=== PATIENT | female | born 1985 | race Caucasian/White ===

== ENCOUNTER 2024-12-06 17:49 | Emergency (ER) | payer BC, SELFPAY ==
[2024-12-06 17:52] VITALS: BP 103/69; PULSE 106; RESP 18; TEMP 37.2; O2SAT 98; BMI 21.6
--- OUTSIDE RECORDS SUMMARY | 2024-12-06 17:52 | XMS_ITS | Continuity of Care Document ---
Author Organization [facility] Address [address] [place] [address] Phone Care Team Providers Care Dinkey Brakeman Name Role Phone Derik RUGGIERO, Pati Unavailable Unavailab le Allergies, Adverse Reactions, Alerts Substance Reaction Status Criticality SULFATHIAZOLE SODIUM Active No Info rmation penicillin V Active No Information amoxicillin Active No Information Medications Medication Instructions Dosage Effective Dates (start - stop) Status Comments triamcinolone acetonide 0.1 % Topical Cream apply by topical route 2 times every day a thin layer to the affected area(s) 0.00 - Active Lantus 100 unit/mL Sub-Q inject by subcutaneous route as per insulin protocol 0.00 - Active Humalog 100 unit/mL Sub-Q inject by subcutaneous route as per insulin sliding scale protocol - Active Procedures Procedure Date Offic/outpt E&m Estab Low-mod 3 Offic/outpt E&m Estab Low-mod 3 I&d Abscess; Simpl/sngl Surgical Trays Offic/outpt E&m New Mod Sever 3 Advance Directives Directive Yes / No Effective Date File Name Resuscitation Not Answered N/A N/A Life Support Not Answered N/A N/A Intubation Not Answered N/A N/A Antibiotics Not Answered N/A N/A IV Fluid Support Not Answered N/A N/A Tube Feed Not Answered N/A N/A Other Directive N/A N/A WARNING:The information contained in this section is historical and is provided for information only and does not constitute a legal document or any assurance that the information is still accurate. Please verify the information with the darnell of the legal document before using it for clinical purposes. Encounters Encounter Description Practice Location Reason(s) For Visit Diagnoses Date Provider Providers Copied on Encounter Offic/outpt E&m Estab [facility], [address], [place], [place], [id number], tel:[phone] [facility] CM wound recheck (chief complaint) Cellulitis Apr-2 3 Derik Krueger . [address] [place] [address], [id number] , [place]. tel:[phone] Referring Provider: Pati More NP, [address] [place] [address], [id number] . tel:[phone] Offic/outpt E&m [facility], [address], [place], [place], [id number], tel:[phone] [facility] CM follow up abscee (chief complaint) CellulitisSCREEN EXAM FOR VENEREAL DISEASE Feb- 3 Derik Krueger . [address] [place] [address], [id number] , [place]. tel:[phone] [facility], [address] [place] [address], [id number], tel:[phone] [facility] CM recheck leg (chief complaint)r saige (chief complaint) CellulitisDERMATI TIS,CONTACT & OTH ECZEMA Apr-0 3 Derik Krueger . [address] [place] [address], [id number] , [place]. tel:[phone] Referring Provider: Pati More NP, [address] [place] [address], [id number] . tel:[phone] Offic/outpt E&m [facility], [address], [place], [id number], tel:[phone] [facility] CM Cellulitis Apr-0 3 Derik Krueger . [address] [place] [address], [id number] , [place]. tel:[phone] Family History Family Member Type Diagnosis Age At Onset No Information Payers Payer name Insurance type Covered democrat ID Authoriza tion(s) [facility] [place] [id number] Social History Type Description Quantity Date Captured Comments Alcohol Use Details Unknown Caffeine Use Details Unknown Tobacco Use Status No Information Smoking Status Never smoker Sex Female Vital Signs Date / Time: Height Weight BMI Pulse Rate Blood Pressure Temperature Respiratory Rate Body Surface Area Head Circumference Head Circ. Percentile Wt./Donn. Percentile BMI percentile Pulse Ox Inhaled Ox 10:04 AM 66.00 in 146.00 lbs 23.5 6 kg/m eter (2) 80 /min 110/76 mm[Hg] 98.10 F 20 /min Chief Complaint And Reason For Visit From encounter dated '02/24/2013 10:00'. wound recheck (chief complaint) Reason For Referral Reason For Referral No Information History Of Present Illness Encounter Date Complaint History Of Prese nt Illness wound recheck Reports much imp roved. Took last dose of antibiotic yesterdayLabs negativeDenies purulent d/c, fever or chills follow up abscee Reports much im proved but never drained. Not tenderDenies purulent d/c, fever or chills recheck leg Abscess is impro ving. less tender. Taking doxycycline and using warm compressesDenies purulent d/c, fever or chills rash Noticed raised r saige on upper back area after starting the doxycycline. Not itchy and reports feels gritty.Denies new lotions, soaps, detergents or perfumes Functional Status Date Functional Assessmen t No Information Instructions Date Instruction Additional Infor mation No Information Assessments Type Assessment Date No Information Patient Care Teams Name Effective Dates (start - stop) Status Members No Information
--- NOTE | 2024-12-06 18:19 | ED_ITS ---
HPI - General Adult General Date Seen: 12/06/24 Chief complaint: Psychiatric Problem/Disorder Stated complaint: High blood sugar, mental health Time Seen by Provider: 12/06/24 18:13 History of Present Illness HPI narrative: 39-year-old female with a history of diabetes and alcohol use disorder (nurse's note indicates that she had been sober for 11 years until she began to drink in September 2024, 3 months ago. She apparently ended up in intensive care unit. H e her relationship 11 years and 2 weeks ago, because of her drinking. She does have a history of anxiety and is on Lexapro and trazodone for that. She also admits a history of alcoholism. It sounds like she has been alcoholic for years. She has been through treatment 4 times. Her most recent episode treatment was 10 or 11 years ago and ultimately that was the successful 1. It sounds like her success was driven by the fact that during that episode treatment it was her personal motivation that led to success (rather than going through treatment to place her family). She had been sober for 10 or 11 years. 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 She had a very supportive sponsor (who is actually in the [facility], she used to live in [place]) She and her boyfriend moved from here near [place] up to [place], [place] last fall (apparently for boyfriend's job). It sounds like she stopped attending and leading meetings well being up in [facility] and then relapsed. She had been drinking beginning in July, and more heavily over the winter. It sounds like her boyfriend ended their relationship week or 2 ago because he found her with alcohol. That was a violation of trust. It sounds like during that event she did think about suicide by overdosing on insulin but that was only a temporary thought a couple of weeks ago. The patient says that she is not actively suicidal today or lately. In addition to commenting about having the thought of wanted to overdose on insulin, she had also been taking risk behavior with driving her car too fast, but also not lately. She has been drinking also taking gummies fairly regularly for the past couple of weeks and not controlling her diabetes. She required hospitalization in the intensive care unit at [facility] in [place] last weekend. After discharge she came home from [facility] to be here in [place], where her parents live. Her father is concerned that he she might . She is still drinking and taking gummies. She reports taking the, he is ?off and on? since last Friday. She says she was drinking as of 930 this morning. She also has not been using her insulin pump properly. She says it was in place but not hooked up properly so was not given her insulin. She had some high blood sugars this morning so she took 10 units of Lantus and 4 units of short- acting insulin this afternoon. Blood sugar is running about 170 on her CGM since then. She says she came here to the ER because her father wanted her to come. She does not really know what she wants. Her father's wonders if there may be some other underlying diagnosis leading to her erratic behavior (he wonders if perhaps she has undiagnosed depression or bipolar? ). Patient says that she is motivated to go home to [place] tomorrow. She already has a appointment upcoming with a therapist. This is a new therapist for her but she has seen the therapist once or twice already. She has an appointment upcoming with a new psychiatrist, whom she has not met yet. She also has plans to enter into an alcohol treatment outpatient program at [facility]. She apparently says that will start on December 11, 5 days from now. Related Data Home Medications ?Medication ?Instructions ?Recorded ?Confirmed escitalopram oxalate 20 mg tablet mg DAILY 12/06/24 insulin aspart U-100 100 unit/mL subcut 12/06/24 (3 mL) subcutaneous pen (Novolog FlexPen U-100 Insulin aspart) insulin aspart U-100 100 unit/mL 12/06/24 subcutaneous solution insulin glargine 100 unit/mL (3 0 - 45 unit subcut DAILY 12/06/24 12/06/24 mL) subcutaneous pen (Lantus Solostar U-100 Insulin) trazodone 50 mg tablet mg 12/06/24 Allergies Allergy/AdvReac Type Severity Reaction Status Date / Time amoxicillin Allergy Mild rash Verified 12/06/24 18:11 Sulfa (Sulfonamide Allergy Mild rash Verified 12/06/24 18:11 Antibiotics) Exam Narrative: Exam Narrative: Constitutional: Appears well-developed and well-nourished. Alert. Conversant. Non toxic. HENT: Head: Atraumatic. Nose: Nose normal. Mouth/Throat: Oral mucosa is clear and moist. no trismus. Pharynx normal. Tonsils symmetric. No tonsillar enlargement, erythema, or exudate. Eyes: Conjunctivae normal. EOM normal. Pupils equal, round, and reactive to ligh t. No scleral icterus. Neck: Normal range of motion. Neck supple. No tracheal deviation present. Cardiovascular: Normal rate, regular rhythm. No gallop. No friction rub. No murmur heard. Symmetric radial artery pulses Pulmonary/Chest: Effort normal. No stridor. No respiratory distress. No wheezes. No rales. No rhonchi . No tenderness. Abdominal: Soft. Bowel sounds normal. No distension. No mass. No tenderness. No rebound. No guarding. Musculoskeletal: RUE: Normal range of motion. No tenderness. No deformity LUE: Normal range of motion. No tenderness. No deformity RLE: Normal range of motion. No edema. No tenderness. No deformity LLE: Normal range of motion. No edema. No tenderness. No deformity Lymph: No cervical adenopathy. Neurological: Alert and oriented to person, place, and time. Normal strength. CN II-VII intact. No sensory deficit. GCS eye subscore is 4. GCS verbal subscore is 5. GCS motor subscore is 6. Normal coordination Skin: Skin is warm and dry. No rash noted. No pallor. Normal capillary refill. Psychiatric: Patient endorses no active suicidal ideation. She did have some thoughts of suicide by overdosing on insulin a couple weeks ago on the night that her boyfriend broke up with her. She also has had some risky behavior several months ago with rapid driving. All father also notes that she has had risky behavior with stealing over the past several months. She did relapse with alcohol a few months ago. Last drink was this morning at around 9:30 a.m. has no history of significant alcohol withdrawal or DTs. Does endorse that she is using marijuana gummies recently as well. No other drugs. She is not think she is . No hallucinations. Adamantly denies any current suicidal ideation. Const: Vital Signs, click to edit/add: Vital Signs - 24 hr 12/06/24 17:52 Temperature 98.9 F Pulse Rate [Pulse Oximeter] 106 H Respiratory Rate 18 Blood Pressure [Ri ght Upper Arm] 103/69 Pulse Oximetry 98 Oxygen Delivery Me thod Room Air Course Course ED Course: Recheck-I had a separate conversation with the patient's father in a private room of the patient was being evaluated by Mental Health. Recheck-evaluated by [facility]. They feel that she is safe for outpatient management. Reevaluation(s) Reevaluation #1: Recheck-patient is interacting well with her father. They are comfortable with her discharging home. Discussed plans for safety. At this point we agree she is calm, sober, and not having any thoughts of self- harm or suicide. She is currently not posing any imminent danger to herself or others. However our concern here is that she may relapse with alcohol which could lead did bad decision making or poor management of her diabetes. Poorly managed diabetes can be life-threatening, for instance if she develops DKA again but also could cause other long-term problems. Concern here is potential risk for relapse with alcohol when she moves back to [place]. In her favor she does have multiple resources already in place including therapist, psychiatrist, as well as a plan to enter into alcohol treatment program on December 11. She is motivated to move back to [facility] because that is where her now ex-fiance is. She would like to get sober and try to patch up their relationship. We discussed a plan for safety including daily check ins with her family. Patient is taking count ability for sobriety and endorsing her motivation to stay sober, manage her diabetes, have follow-up for treatment. Vital Signs Vital signs: Initial Vital Signs Temperature 98.9 F 12/06/24 17:52 Temperature Source Temporal Artery Scan 12/06/24 17:52 Pulse Rate 106 H 12/06/24 17:52 Respiratory Rate 18 12/06/24 17:52 Blood Pressure 103/69 12/06/24 17:52 Blood Pressure Mean 80 12/06/24 17:52 Blood Pressure Position Sitting 12/06/24 17:52 Pulse Oximetry 98 12/06/24 17:52 Oxygen Delivery Method Room Air 12/06/24 17:52 Vital Signs Temperature 98.9 F 12/06/24 17:52 Pulse Rate 106 H 12/06/24 17:52 Respiratory Rate 18 12/06/24 17:52 Blood Pressure 103/69 12/06/24 17:52 Pulse Oximetry 98 12/06/24 17:52 Oxygen Delivery Method Room Air 12/06/24 17:52 Temperature 98.9 F 12/06/24 17:52 Pulse Rate 106 H 12/06/24 17:52 Respiratory Rate 18 12/06/24 17:52 Blood Pressure 103/69 12/06/24 17:52 Pulse Oximetry 98 12/06/24 17:52 Oxygen Delivery Method Room Air 12/06/24 17:52 Medical Decision Making MDM Narrative Medical decision making narrative: 39-year-old female with a complex presentation. She is an insulin-dependent diabetic, also with alcohol use disorder. She has a recent hospitalization in [place] for DKA apparently stemming from poor diabetic control when she was drinking heavily. 1. Laboratory workup today is reassuring. No evidence for uncontrolled hyperglycemia or DKA. No evidence for any life-threatening diabetic complication at this point. 2. She does have a alcohol use disorder and was drinking up to this morning at about 930. [facility] She is not displaying any signs of alcohol withdrawal. Concern here is potential for relapse when she moves back home. Ultimately we were able to come up with the plan of care with her doing daily or twice daily check ins with her father to ensure sobriety 3. Mental health. She also has a history of anxiety. Father questions whether not she may have other underlying mental diagnoses such as depression or bipolar. At this point were not able do a full psychiatric specimen here in the ER to make long-term diagnostic recommendations. We discussed whether not she would benefit from inpatient care. At this point she is not suicidal or homicidal. She was evaluated by at a [facility] tele psychiatry. They feel that she does not meet criteria for inpatient stay and would recommend outpatient management. Patient does already have a therapist set up in [facility]. She has an appointment upcoming with a new psychiatrist, but has not met them yet. She will continue on her current medication regimen until that psychiatric follow-up Lab Data Labs: Lab Results 12/06/24 12/06/24 12/06/24 Range/Units 18:59 19:00 19:01 WBC 7.76 (4.50-11.00) K/uL RBC 3.94 L (4.00-5.20) m/uL Hgb 10.3 L (12.0-16.0) gm/dL Hct 31.7 L (33.0-51.0) % MCV 81 (80-100) fL MCH 26 (26-34) pg MCHC 33 (32-36) gm/dL RDW Coeff of Sue 15.5 (11.5-15.5) % Plt Count 419 (140-440) K/uL Neut % (Auto) 54.5 (42.0-72.0) % Lymph % (Auto) 35.7 (20-44) % [place] % (Auto) 7.3 (0.0-11.0) % Eos % (Auto) 1.8 (0.0-7.0) % Baso % (Auto) 0.6 (0.0-3.0) % Neut # (Auto) 4.22 (1.7-7.0) K/uL Lymph # (Auto) 2.77 (0.90-2.90) K/uL [place] # (Auto) 0.60 (0.00-0.90) K/UL Eos # (Auto) 0.14 (0.00-0.50) K/uL Baso # (Auto) 0.05 (0.00-0.30) K/uL Abs Immat Gran (auto) 0.01 (0.00-0.30) K/uL Imm/Tot Granulo (auto) 0.1 % VBG pH 7.460 H (7.32-7.43) VBG pCO2 39 L (40-50) mmHG VBG pO2 44.4 (25-47) mmHG VBG HCO3 27 (21-28) mmol/L Sodium 138 (135-149) mmol/L Potassium 3.7 (3.6-5.1) mmol/L Chloride 104 (96-114) mmol/L Carbon Dioxide 26 (20-32) mmol/L Anion Gap 8 (7-15) mEq/L BUN 8 (5-24) mg/dL Creatinine 0.7 (0.5-1.5) mg/dL Estimated Creat Clear 98.05 Estimated GFR 113 ml/min Glucose 89 (60-115) mg/dL Calcium 9.0 (8.4-10.6) mg/dL Total Bilirubin 0.2 (0.1-1.5) mg/dL AST 32 (12-35) U/L ALT 19 (4-35) U/L Alkaline Phosphatase 72 (40-150) U/L Total Protein 6.3 (6.0-8.3) g/dL Albumin 3.8 (3.3-5.0) g/dL Urine HCG, Qual Negative (Negative) Salicylates < 1.0 L (1.0-10) mg/dL Urine Opiates Screen Negative (Negative) Ur Oxycodone Screen Negative (Negative) Urine Methadone Screen Negative (Negative) Acetaminophen < 10.0 L (10.0-30.0) ug/mL Ur Barbiturates Screen Negative (Negative) U Tricyclic Antidepress Negative (Negative) Ur Phencyclidine Scrn Negative (Negative) Ur Amphetamines Screen Negative (Negative) U Methamphetamines Scrn Negative (Negative) U Benzodiazepines Scrn Negative (Negative) Urine Cocaine Screen Negative (Negative) U Marijuana (THC) Screen POSITIVE A (Negative) Ur Drug Screen Comment See Note Ethyl Alcohol < 0.01 L (0.01-0.03) % Discharge Plan Discharge Clinical Impression: Alcohol use disorder, Anxiety, Insulin dependent diabetes mellitus Patient Disposition: Home, Self-Care Condition: Stable Instructions: Abuse of Alcohol (DC), Alcohol Use Disorder (ED) Additional Instructions: As we discussed, please return to the ER right away if you have any problems. Continue to monitor your glucose and use her insulin to treat your diabetes. It is very important to keep her blood sugar under control so that you do not sustain long-term damage to your body. Please continue to work hard to stay sober from alcohol. Drinking makes it hard for you to control her blood sugars and can put your health at risk. Drinking also makes it hard for you to maintain your relationships and live a happy life. Please follow-up with your counselor, and your psychiatry in [place] as soon as possible. Please be sure to follow through on the alcohol treatment program as you have planned on December 11. Make a plan for safety. Be sure to set up a healthy daily rhythm to avoid temptation to drink alcohol. Make a plan to contact your family (either your father or your sister or another a support family member ) at least twice per day. If you call them on the phone or do a FaceTime chat you can for confirm that your sober and healthy. Perhaps you could also report to them your blood sugar measurements to make sure that your accountable for your diabetes control. Prescriptions: No Action trazodone 50 mg tablet insulin aspart U-100 100 unit/mL solution Patient Comments: [NO ORIGINAL SIG] escitalopram oxalate 20 mg tablet DAILY insulin aspart U-100 [Novolog FlexPen U-100 Insulin] 100 unit/mL (3 mL) insulin pen subcut insulin glargine [Lantus Solostar U-100 Insulin] 100 unit/mL (3 mL) insulin pen 0 - 45 unit subcut DAILY Follow Up/Referrals: Provider,Not a Local [Primary Care Provider] - Stand Alone Forms: [facility] Inst[facility]
--- OUTSIDE RECORDS SUMMARY | 2024-12-06 19:10 | XMS_ITS | Continuity of Care Document ---
Author Organization [facility] Address [address] [place] [address] Phone Care Team Providers Care Turbine Engine Assembler Name Role Phone Derik RUGGIERO, Pati Unavailable [...] Providers Copied on Encounter Offic/outpt E&m [facility], [address], [place], [place], [id number], tel:[phone] [facility] CM wound recheck (chief complaint) Cellulitis Apr-2 3 Derik Krueger . [address] [place] [address], [id number] , [place]. tel:[phone] Referring Provider: Pati More NP, [address] [place] [address], [id number] . tel:[phone] Offic/outpt E&m [facility], [address], [place], [place], [id number], tel:[phone] [facility] CM follow up abscee (chief complaint) CellulitisSCREEN EXAM FOR VENEREAL DISEASE Feb- 3 Derik Krueger . [address] [place] [address], [id number] , [place]. tel:[phone] [facility], [address] [place] [address], [id number], tel:[phone] [facility] CM recheck leg (chief complaint)r saige (chief complaint) CellulitisDERMATI TIS,CONTACT & OTH ECZEMA Apr-0 3 Derik Krueger . [address] [place] [address], [id number] , [place]. tel:[phone] Referring Provider: Pati More NP, [address] [place] [address], [id number] . tel:[phone] Offic/outpt E&m [facility], [address], [place], [id number], tel:[phone] [facility] CM Cellulitis Apr-0 3 Derik Krueger . [address] [place] [address], [id number] , [place]. tel:[phone] Family History Family Member Type Diagnosis Age At Onset No Information Payers Payer name Insurance type Covered green party ID Authoriza tion(s) [facility] [place] [id number] Social History Type Description Quantity Date Captured [...]
--- OUTSIDE RECORDS SUMMARY | 2024-12-06 19:10 | XMS_ITS | Encounter Summary ---
Author Organization [facility] Address [address] [address] Phone Care Team Providers Care Interventional Physician Name Role Phone Rosmery Albright APRN, CNP Unavailable [phone] Oleg Morris MD Unavailable [phone] Reason for Visit * Reason Onset Date Comments Hospital Discharge Follow-up 11/26/2024 TCM Encounter Details Date Type Department Care Team (Late st Contact Info) Description 11/26/2024 Patient Outreach [facility] [address] [place] [phone] Cynthia Yun, RN Hospital Discharge Follow-up (TCM) Social History Tobacco Use Types Packs/Day Years Used Date Smoking Tobacco: Former Cigarettes 1 13 0 06/03/2001 - 06/03/2014 Smokeless Tobacco: Never Comments:Quit 7 years ago Alcohol Use Standard Drinks/Week Comments Yes 16 (1 standard drink = 0.6 oz pure alcohol) sober for 10 years, relapsed 4 months ago [facility] Utilities Answer Date Recorded In the past 12 months has e electric, gas, oil, or water company threatened to shut off services in your home? No 11/25/2024 PHQ-2 Answer Date Recorded PHQ-2 Total 0 05/25/2024 Hunger Vital Sign Answer Date Recorded Within the past 12 months, y ou worried that your food would run out before you got the money to buy more. Never true 11/25/19 25 Within the past 12 months, t he food you bought just didn't last and you didn't have money to get more. Never true 11/25/2024 PRAPARE - Transportation Answer Date Re corded In the past 12 months, has l ack of transportation kept you from medical appointments or from getting medications? No 11/04 In the past 12 months, has l ack of transportation kept you from meetings, work, or from getting things needed for daily living? No 11/25/2024 Housing Stability Vital Sign Answer Ulises e Recorded In the last 12 months, was t here a time when you were not able to pay the mortgage or rent on time? No 11/25/2024 In the past 12 months, how m any times have you moved where you were living? 0 11/25/2024 At any time in the past 12 m onths, were you homeless or living in a halfway (including now)? No 11/25/2024 EH IP Custom IPV Answer Date Recorded Do you feel UNSAFE in any of your personal relationships with your family members or any other acquaintances? No 2024 Comments No Sex and Gender Information Value Date Recorded Sex Assigned at Female 09/12/2021 12:45 PM MOBILE HEAVY EQUIPMENT OPERATOR Legal Sex Female 3:03 PM CDT Gender Identity Female 09/12/2021 12:45 PM MOBILE HEAVY EQUIPMENT OPERATOR Sexual Orientation Not on file documented as of this encounter Functional Status * Patient's Vision Adequate to Safely Complete Daily Activities Answer Date of Assessment Author Yes 11/25/2024 7:41 PM Ameena Gary RN * Patient's Memory Adequate to Safely Complete Daily Activities Answer Date of Assessment Author Yes 11/25/2024 7:41 PM Ameena Gary RN documented as of this encounter Mental Status * Patient's Judgment Adequate to Safely Complete Daily Activities Answer Entry Date Author Yes 11/25/2024 7:41 PM Ameena Gary RN documented in this encounter Progress Notes * Cynthia Yun RN - 11/26/2024 4:12 PM CST CLINICIAN: Baron Collado Please reply noted, using the Note function if you agree with plan or reply with recommended changes to the plan. Please route back to the sender. Transitional Care Management Telephone Call Discharge information obtained and reviewed by Nurse Navigator. Discharge Diagnosis: Diabetic ketoacidosis without coma associated with type 1 diabetes mellitus (HCC) Active Problems: Type 1 diabetes mellitus (HCC) History of alcohol abuse EDIL (generalized anxiety disorder) Discharge Date: 11/26/24 Tests or Procedures Performed: admitted for DKA on 11/25/2023 it appears that this was due to a kink lying in her insulin pump. Patient transition from insulin drip back to home pump prior to discharge without any issues Follow-up Services ordered and/or needed: PCP A1c 9% further education on diabetes management, diet, etc Discharge medications were reviewed, and outpatient medical record medication list has been updatedwith the following changes: Started: none Discontinued: none Medications Held: None Called and left 2 message with pt with my direct line. Appt with Baron previously scheduled. Transitional Care Follow-Up Appointment Scheduled for: 12/03/2024 Does patient have access to care and services (Rides, etc)? YES/NO: PAWEL [x] Chief Complaint added to upcoming Hospital Discharge appointment encounter [x] TCM CPT Code added to upcoming Hospital Discharge appointment encounter [] Follow-up labs ordered in upcoming Hospital Discharge appointment encounter [x] Patient Reminder sent for upcoming Hospital Discharge appointment [x] Add TCM Completion Status to Specialty Comment sticky note LE HEAVY EQUIPMENT OPERATOR * Baron Collado CNP - 11/26/2024 4:12 PM CST Noted. Thank you! LE HEAVY EQUIPMENT OPERATOR documented in this encounter Plan of Treatment Upcoming Encounters Date Type Department Care Team ([facility] st Contact Info) Description 01/07/2025 2:30 PM MOBILE HEAVY EQUIPMENT OPERATOR Appointment [facility] ENDOCRINOLOGY [address] [place] [address] [address] [place] [phone] Rosmery Albright, PRESENTATION TEAM MEMBER, E D TECH [address] [facility] [address] [place], [place] [phone] documented as of this encounter Visit Diagnoses Diagnosis Hospital discharge follow-up- Primary Other follow-up examination documented in this encounter Care Teams Interventional Physician Relationship Specialty Start Date End Date Rosmery Albright APRN, CNP [address] [place] [address] Endocrinology 11/14/21 Oleg Morris MD [address] [place] [phone] Gastroenterology 01/22/23 documented as of this encounter
--- OUTSIDE RECORDS SUMMARY | 2024-12-06 19:10 | XMS_ITS | Encounter Summary ---
Author Organization [facility] Address [address] [address] Phone Care Team Providers Care Repairer Pump Name Role Phone Rosmery Albright APRN, CNP Unavailable [phone] Oleg Morris MD Unavailable [phone] Baron Collado CNP Primary Care Provider [phone] Encounter Details Date Type Department Care Team (Latest Contact Info) Description 12/03/2024 Travel Social History Tobacco Use Types Packs/Day Years Used Date Smoking Tobacco: Former Cigarettes 1 13 0 06/03/2001 - 06/03/2014 Smokeless Tobacco: Never Comments:Quit 7 years ago Alcohol Use Standard Drinks/Week Comments Yes 16 (1 standard drink = 0.6 oz pure alcohol) sober for 10 years, relapsed 4 months ago [facility] Utilities Answer Date Recorded In the past 12 months has [employer], gas, oil, or water company threatened to [...] any time in the past 12 m [facility], were you homeless or living in a custodial (including now)? No 11/25/2024 EH IP Custom IPV Answer Date Recorded Do you feel UNSAFE in any of your personal relationships with your family members or any other acquaintances? No 2024 Comments No Sex and Gender Information Value Date Recorded Sex Assigned at Female 09/12/2021 12:45 PM REGIONAL FACILITIES MANAGER Legal Sex Female 3:03 PM CDT Gender Identity Female 09/12/2021 12:45 PM REGIONAL FACILITIES MANAGER Sexual Orientation Not on file documented as of this encounter Functional Status * Patient's Vision Adequate to Safely Complete Daily Activities Answer Date of Assessment Author Yes 11/25/2024 7:41 PM Ameena Gary RN * Patient's Memory Adequate to Safely Complete Daily Activities Answer Date of Assessment Author Yes 11/25/2024 7:41 PM REGIONAL FACILITIES MANAGER Ameena Sr, RN documented as of this encounter Mental Status * Patient's Judgment Adequate to Safely Complete Daily Activities Answer Entry Date Author Yes 11/25/2024 7:41 PM Ameena Gary, RN documented in this encounter Plan of Treatment Upcoming Encounters Date Type Department Care Team (Late st Contact Info) Description 01/07/2025 2:30 PM REGIONAL FACILITIES MANAGER Appointment [facility] ENDOCRINOLOGY [address] [facility] [address] [phone] Rosmery Albright, MARINE WELDER, TOOLING SUPERVISOR [address] [facility] [address] [place] [address] documented as of this encounter Visit Diagnoses Not on filedocumented in this encounter Care Teams Repairer Pump Relationship Specialty Start Date End Date Baron Collado CNP [address] [place] [address] PCP - General Nurse Practitioner 12/01/24 Rosmery Albright APRN, CNP [address] [place] [address] Endocrinology 11/14/21 Oleg Morris MD [address] [place] [address] Gastroenterology 01/22/23 documented as of this encounter
--- OUTSIDE RECORDS SUMMARY | 2024-12-06 19:10 | XMS_ITS | Encounter Summary ---
Author Organization [facility] Address [address] [address] Phone Care Team Providers Care Sewer Repairer Name Role Phone Rosemry Albright APRN, CNP Unavailable Oleg Morris MD Unavailable Baron Collado CNP Primary Care Provider Encounter Details Date Type Department Care Team ([facility] st Contact Info) Description 12/01/2024 Telephone [facility] ENDOCRINOLOGY [address] [facility] [address] [address] Rosmery Albright APRN, CNP [address] [facility] [address] [place] [address] Social History Tobacco Use Types Packs/Day Years Used Date Smoking Tobacco: Former Cigarettes 1 13 0 06/03/2001 - 06/03/2014 Smokeless Tobacco: Never Comments:Quit 7 years ago Alcohol Use Standard Drinks/Week Comments Yes 16 (1 standard drink = 0.6 oz pure alcohol) sober for 10 years, relapsed 4 months ago [facility] Utilities Answer Date Recorded In the past 12 months has [employer], gas, oil, or water company threatened to [...] any time in the past 12 m [facility], were you homeless or living in a senior care (including now)? No 11/25/2024 EH IP Custom IPV Answer Date Recorded Do you feel UNSAFE in any of your personal relationships with your family members or any other acquaintances? No 2024 Comments No Sex and Gender Information Value Date Recorded Sex Assigned at Female 09/12/2021 12:45 PM INFORMATION SYSTEMS PLANNER Legal Sex Female 3:03 PM CDT Gender Identity Female 09/12/2021 12:45 PM INFORMATION SYSTEMS PLANNER Sexual Orientation Not on file documented as [...] Ameena Gary RN documented in this encounter Miscellaneous Notes * Telephone Encounter - Rosmery Albright APRN, CNP - 12/01/2024 11:01 AM INFORMATION SYSTEMS PLANNER Can we please reach out to Dahiana to schedule a virtual visit with any Endocrinology provider or PharmD to follow-up after recent admission? Thanks! RMATION SYSTEMS PLANNER * Telephone Encounter - Rosmery Albright APRN, CNP - 12/01/2024 10:59 AM INFORMATION SYSTEMS PLANNER Dahiana was admitted for DKA on 11/25/2023 due to a kink lying in her insulin pump. Insulin pump was interrogated by endocrinology and felt to be functional. Patient transition from insulin drip back to home pump prior to discharge without any issues. RMATION SYSTEMS PLANNER documented in this encounter Plan of Treatment Upcoming Encounters Date Type Department Care Team (Late st Contact Info) Description 01/07/2025 2:30 PM INFORMATION SYSTEMS PLANNER Appointment [facility] ENDOCRINOLOGY [address] [place] [phone] Rosmery Albright APRN, CNP [facility] [address] [phone] documented as of this encounter Visit Diagnoses Not on filedocumented in this encounter Care Teams Sewer Repairer Relationship Specialty Start Date End Date Baron Collado CNP [address] [place] [address] PCP - General Nurse Practitioner 12/01/24 Rosmery Albright APRN, CNP [address] [place] [address] Endocrinology 11/14/21 Oleg Morris MD [address] [place] [address] [place] [address] Gastroenterology 01/22/23 documented as of this encounter
--- OUTSIDE RECORDS SUMMARY | 2024-12-06 19:10 | XMS_ITS | Encounter Summary ---
Author Organization [facility] Address [address] [address] Phone Care Team Providers Care Apprentice Embalmer Name Role Phone Rosmery Albright APRN, CNP Unavailable Oleg Morris MD Unavailable [phone] Fred Leyva MD Primary Care Provider [phone] Baron Collado CNP Primary Care Provider [phone] Reason for Visit * Reason Comments Refill Request Encounter Details Date Type Department Care Team ([facility] st Contact Info) Description 06/01/[address] [facility] ENDOCRINOLOGY [address] [phone] Rosmery Albright APRN, STAVE INSPECTOR [address] [facility] [address] [place] [address] Refill Request Social History Tobacco Use Types Packs/Day Years Used Date Smoking Tobacco: Former Cigarettes Q uit: 2013 Smokeless Tobacco: Never Comments:Quit 7 years ago Alcohol Use Standard Drinks/Week Comments Not Currently 0 (1 standard drink = 0.6 oz pur e alcohol) 08/31/2013 PHQ-2 Answer Date Recorded PHQ-2 Total 0 03/19/2023 Comments No Sex and Gender Information Value Date Recorded Sex Assigned at Female 09/12/2021 12:45 PM HEALTH SANITARIAN Legal Sex Female 3:03 PM CDT Gender Identity Female 09/12/2021 12:45 PM HEALTH SANITARIAN Sexual Orientation Not on file COVID-19 Exposure Response Date Recorded In the last 10 days, have yo u been in contact with someone who was confirmed or suspected to have Coronavirus/COVID-19? No / Unsure 05/10/2023 6:46 PM CDT documented as of this encounter Functional Status * Patient's Vision Adequate to Safely Complete Daily Activities Answer Date of Assessment Author Yes 05/10/2023 7:45 PM CDT Yolande Smith, MELISA * Patient's Memory Adequate to Safely Complete Daily Activities Answer Date of Assessment Author Yes 05/10/2023 7:45 PM CDT Yolande Smith RN documented as of this encounter Mental Status * Patient's Judgment Adequate to Safely Complete Daily Activities Answer Entry Date Author Yes 05/10/2023 7:45 PM CDT Yolande Smith RN documented in this encounter Plan of Treatment Upcoming Encounters Date Type Department Care Team (Late st Contact Info) Description 01/07/2025 2:30 PM HEALTH SANITARIAN Appointment [facility] ENDOCRINOLOGY [address] [facility] [address] [place] [phone] Rosmery Albright, CUSTOMER ACQUISITION SPECIALIST, STAVE INSPECTOR [address] [facility] [address] [place], [place] [phone] documented as of this encounter Visit Diagnoses Not on filedocumented in this encounter Additional Health Concerns Infection Onset Date Last Indicated Resolved Time R/O Respiratory Pathogens 11/26/2023 11/26/2023 6:05 PM HEALTH SANITARIAN R/O COVID-19 11/26/2023 11/26/2023 11/26/2023 6:05 PM HEALTH SANITARIAN R/O Respiratory Pathogens 01/14/2024 01/14/2024 8:05 PM CDT R/O COVID-19 01/14/2024 01/14/2024 01/14/2024 8:05 PM CDT COVID-19 Confirmed 01/14/2024 01/14/2024 11:06 PM CDT documented as of this encounter Care Teams Apprentice Embalmer Relationship Specialty Start Date End Date Fred Leyva MD [address] [address] PCP - General Internal Medicine 07/18/23 08/21/23 Baron Collado CNP [address] [address] PCP - General Nurse Practitioner 12/01/24 Rosmery Albright APRN STAVE INSPECTOR [facility] [address] [address] Endocrinology 11/14/21 Oleg Morris MD [facility] [address] [address] Gastroenterology 01/22/23 documented as of this encounter
--- OUTSIDE RECORDS SUMMARY | 2024-12-06 19:10 | XMS_ITS | Clinical Summary ---
Author Organization [facility] Address [place], [place] [address] Care Team Providers Care Jewel Hole Gauger Name Role Phone Pcp, No Primary Care Provider Unavailabl e Allergies Active Allergy Reactions Criticality Noted Date Comments Amoxicillin Penicillins Sulfa (Sulfonamide Antibiotics) Hydrocodone-Acetaminophen Mental Status Change 11/11/2012 Medications FISH OIL 1,000 MG CAP three caps daily 0 07/20/20 08 Active glucagon 1 mg injectionIndications :Uncontrolled type 1 diabetes with renal manifestation 1 mg one time if needed for Blood Gluc < Specify (hypoglycemia). 1 Kit PRN 04/30/20 13 Active blood sugar diagnostic (ONE TOUCH ULTRA TEST) strip Dispense test strips covered by the patient insurance. Test 4-6 times per day. 400 Each prn 05/21/20 13 Active nystatin-triamcinolo ne (MYCOLOG) creamIndications:Vul vitis Apply topically to affected area(s) 2 times daily. 1 Tube 1 10/10/20 14 Active lancets (ACCU-CHEK FASTCLIX) Dispense item covered by pt ins. test 6 x per day 100 Each prn 03/24/20 15 Active ACCU-CHEK SMARTVIEW TEST STRIP stripIndications:Unc ontrolled type 1 diabetes with renal manifestation TEST 6 TIMES A DAY 700 Strip 1 05/14/20 16 Active insulin aspart (NOVOLOG FLEXPEN) 100 unit/mL solution for injectionIndications :Uncontrolled type 1 diabetes mellitus with microalbuminuria INJECT 6 TO 13 UNITS BEFORE MEALS AND 8 TO 9 UNITS FOR SNACKS. ABOUT 50 UNITS PER DAY 45 mL 3 10/21/20 16 Active BASAGLAR KWIKPEN 100 unit/mL (3 mL) penIndications:Diabe sotero mellitus type 1, uncontrolled, without complications Inject 26 Units subcutaneous before bedtime. Product desired:BASAGLA R 1 box 3 02/07/20 17 Active lancets (ONETOUCH DELICA LANCETS) 30 gauge miscIndications:Unco ntrolled diabetes mellitus type 1 without complications As directed. Test 6 times per day. 600 Each 3 03/20/20 17 Active blood sugar diagnostic (ONETOUCH ULTRA TEST) stripIndications:Unc ontrolled diabetes mellitus type 1 without complications Test 6 times per day 600 Each 3 03/20/20 17 Active blood-glucose meter (PetcubeTOUCH ULTRA2)Indications:U ncontrolled diabetes mellitus type 1 without complications Dispense meter, test strips, lancets covered by pt ins. 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 11/12/2012 03/24/2015 Hypoglycemia, unspecified 06/20/2011 Type I (juvenile type) diabe sotero mellitus without mention of complication, not stated as uncontrolled 07/22/2008 12/30/2009 Type I (juvenile type) diabe sotero mellitus without mention of complication, not stated as uncontrolled 01/02/2008 07/22/2008 Immunizations Name Administration Dates Next Due Hepatitis A (Adult) 03/30/2008,12/31/2006 Hepatitis B (Adult) 07/09/2013,12/11/2010 Hepatitis B (Peds) 08/29/2000 Human Papilloma Virus Vaccine 12/11/2010, 008,12/31/2006 Influenza, IIV3 (Age >=3 years) 07/09/20 13,10/21/2012,10/03/2010,2007 Influenza, IIV4 10/13/2014 Influenza, RIV3 (Age =>18 Years) 10/21/2016 MMR 02/08/2009,02/22/1999 Td, Preservative Free (age > = 7 Years) 02/22/1999 Tdap 02/08/2009 Family History Medical History Relation Name Comments Psychiatric illness Father depressi on Cancer-colon Maternal Uncle Cancer-breast Neg. Other Other No Diabetes Alcohol/Drug Paternal Aunt etoh Alcohol/Drug Paternal Grandmother etoh Psychiatric illness Sister 1 depressi on Psychiatric illness Sister 2 depressi on Relation Name Status Comments Father Alive Maternal Uncle Mother Alive Neg. 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 Not on file Not on file Not on file Obstetrics History Para Term AB IAB SAB Ectopic Multiple Livin g Live Births 0 0 0 0 0 0 0 0 0 0 Last Filed Vital Signs Vital Sign Reading Time Taken Comments Blood Pressure 100/70 10/21/2016 3:32 PM RADIO TELEVISION ANNOUNCER Pulse 68 10/21/2016 3:32 PM RADIO TELEVISION ANNOUNCER Temperature 36.8 C (98.3 F) 08/29/2016 6:28 PM CDT Respiratory Rate 16 08/29/2016 6:28 PM CDT Oxygen Saturation 100% 08/29/2016 6:28 PM CDT Inhaled Oxygen Concentration - - Weight 63.5 kg (140 lb) 10/21/2016 3:32 PM RADIO TELEVISION ANNOUNCER Height 168 cm (5' 6.14) 06/07/2016 10:41 AM CDT Body Mass Index 22.5 06/07/2016 10:41 AM CDT Plan of Treatment Health Maintenance Due Date Last Done Comments HIV for age 15-65 2001 Hepatitis C screening for age 18-79 2004 Pap test for age 21-65 04/30/2016 3, 12/11/2010, 03/30/2008, Additional history exists Depression screening for age 12+ 01/08/2017 01/09/2016 BMI (ht and wt on same day) for age 18+ 06/07/2017 06/07/2016, 02/27/2016 Tetanus booster 02/08/2019 02/08/2009, 02/22/1999 COVID-19 vaccine series (2023- season) 2024 Influenza for age 9-49 07/04/2024 6, 10/13/2014, 07/09/2013, Additional history exists Tdap Completed 02/08/2009 Pneumococcal series for age 6-49 Aged Out No longer eligible based on patient's age to complete this topic Procedures Procedure Name Priority Date/Time Associated Diagnosis Comments HAND THERMAL CUTTER THIN PREP PAP SCREEN IMAGED Routine 04/30/2013 4:07 PM CDT Screening for cervical cancer from Last 3 Months or Most Recently Relevant to Health Maintenance Results * HAND THERMAL CUTTER THIN PREP PAP SCREEN IMAGED (04/30/2013 4:07 PM CDT) CYTOLOGY CYTOPATHOLOGY REPORT [facility] Status: Final Status [id number] CLINICAL INFORMATION Last Date of LMP :04/16/13 Last Pap Date :12/11/2010 Last Pap Result :NIL ABN [place]/Bx Past 5 YRS :None Hormone Usage :BCP/OCP/Patch/Rin g Menstrual Status :Regular Periods P[place]/Bx done today :No Additional Information :None given HPV Request :HPV if ASCUS SPECIMEN SOURCE :Cervical/vaginal ThinPrep Vial, screening SPECIMEN ADEQUACY :Satisfactory for evaluation Endocervical component present. 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 NOTE: The Pap test is a screening technique, not a diagnostic procedure. It is used primarily to screen for squamous cancers and precursor lesions. Published studies have shown that it is subject to both false negative and false positive results. The pap test should not be used as the sole means to diagnose or exclude pre-malignant and malignant lesions. COLLECTED:04/30/13 ACCESSIONED: 05/03/13 SIGNED: 05/10/13 [facility] PAP [place] CODE NIL [facility] Tissue specimen (specimen) (Cervical/Vagina l) 04/30/2013 4:07 PM CDT 04/30/2013 4:06 PM CDT Olesya Clark DO PATHOLOGY/CYTOLOGY Final Re sult [facility] [place]NAL ZIP [id number] [place] [phone] from Last 3 Months or Most Recently Relevant to Health Maintenance Care Teams Jewel Hole Gauger Relationship Specialty Start Date End Date Pcp, No . PCP - General 08/09/16
--- OUTSIDE RECORDS SUMMARY | 2024-12-06 19:10 | XMS_ITS | Clinical Summary ---
Author Organization [address] [employer] OrganizationUn[facility] Center[facility] Address [address] [place] [address] Care Team Providers Care Environmental Emergencies Planner Name Role Phone Paola Clemons MD Primary Care Provider [phone] Source Comments You are receiving this document as you are listed as the primary care provider,follow-up provider, or the patient has been referred to you for consultation.This is in compliance with the Medicare and[facility] EHR Incentive Program,which states Providers who transition their patient to another setting of careor provider of care or refers their patient to another provider of care shouldprovide summary care record for each transition of care or referral. [facility] Allergies Active Allergy Reactions Criticality Noted Date Comments Amoxicillin Hives High 02/23/2017 Penicillins Hives High 02/23/2017 Sulfa Antibiotics Hives High 02/23/2017 Nuts Anaphylaxis High 04/22/2021 Medications Medication Sig Dispensed Refills Start Date End Date Status MICROLET LANCETS lancets Test BG 4x/day 100 Each 3 11/19/2017 Active Additional Information Patient taking differently:, Test BG 4x/day,Indications: Diabetes Mellitus, Reported on 04/22/2021 insulin pen needle (BD ULTRAFINE YOSELIN) 32G X 4 MMIndications:Type 1 diabetes mellitus without complications (HRC) Inject subcutaneously as needed for Blood Sugar >. 100 Each 11 02/16/2018 Active Additional Information Patient taking differently:Subcutaneous PRN, Blood Sugar >,Indications: Diabetes Mellitus, Reported on 04/22/2021 [place] [address]-3 Fatty Acids (FISH OIL) 1000 MG capsuleIndications: Acne Vulgaris,Diabetes Mellitus Take by mouth. Indications: Common Acne, Diabetes 07/20/2008 Active glucagon, human recombinant, (GLUCAGEN) 1 MG injectionIndication s:Type 1 diabetes mellitus without complications (HRC) Inject 1 mg subcutaneously as needed for Hypoglycemia. 1 Kit 2 01/26/2019 Active Additional Information Patient not taking.Reported on 10/28/2021 ondansetron (ZOFRAN) 4 MG tabletIndications:N ausea Take 1 Tablet by mouth every 8 hours as needed. 30 Tablet 1 01/26/2019 Active Additional Information Patient not taking.Reported on 10/28/2021 hydrOXYzine HCl (ATARAX) 25 MG tabletIndications:C hronic insomnia Take 1-4 Tablets by mouth at bedtime as needed. 60 Tablet 2 03/10/2019 Active Additional Information Patient not taking.Reported on 10/28/2021 ADMELOG SOLOSTAR 100 UNIT/ML injection penIndications:Type 1 diabetes mellitus without complications (HRC) 2 units per carb, 35-45 units per day (1/carb when active). 15 mL 2 04/19/2019 Active Additional Information Patient taking differently:, 2 units per carb, 35-45 units per day (1/carb when active).,Indications: Type 1 Diabetes Mellitus, Reported on 04/22/2021 insulin glargine (BASAGLAR) 100 UNIT/ML KWIKPENIndications: Type 1 Diabetes Mellitus 24 units daily Indications: Insulin-Dependent Diabetes 30 mL 3 04/19/2019 Active blood glucose (BROOKE CONTOUR NEXT) test stripIndications:Ty pe 1 diabetes mellitus without complications (HRC) Use 1 strip 4x/day for testing 400 Strip 3 05/17/2019 Active Additional Information Patient taking differently:, Use 1 strip 4x/day for testing,Indications: Diabetes Mellitus, Reported on 04/22/2021 NOVOLOG FLEXPEN 100 UNIT/ML pen injectionIndication s:Type 1 Diabetes Mellitus Indications: Insulin-Dependent Diabetes 03/13/2020 Active gabapentin (NEURONTIN) 300 MG capsuleIndications: Neuropathic Pain,Peripheral Neuropathy Indications: Neuropathic Pain, Disease of the Peripheral Nerves 05/25/2020 Active Continuous Blood Gluc Sensor (DEXCOM G6 SENSOR) MISCIndications:Aurora betes Mellitus 1 Device. Use as directed. Indications: Diabetes Active clindamycin (CLEOCIN T) 1 % external solutionIndications :Acne Vulgaris Apply topically two times a day. Indications: Common Acne Active Multiple Vitamins-Minerals (HAIR SKIN AND NAILS FORMULA OR)Indications:Nutr itional Support Take 2 Gum by mouth daily. 2 gummies daily for hair, skin and nail support (OTC product). Indications: Nutritional Support Active diphenhydramine/alu m-mag antacid/viscous lidocaine (MAGIC MOUTHWASH) oral suspension Swish and spit 5 mL in mouth every 4 hours as needed for Pain. contains 1:1:1 ratio of diphenhydramine, lidocaine 2%, alum-mag antacid 300 mL 06/09/2021 Active Additional Information Patient not taking.Reported on 10/20/2021 diphenhydramine/alu m-mag antacid/viscous lidocaine (MAGIC MOUTHWASH) oral suspension Swish and spit 5 mL in mouth every 4 hours as needed for Pain. contains 1:1:1 ratio of diphenhydramine, lidocaine 2%, alum-mag antacid 300 mL 06/09/2021 Active Additional Information Patient not taking.Reported on 10/20/2021 Active Problems Problem Noted Date Diagnosed Date Diabetic ketoacidosis withou t coma associated with type 1 diabetes mellitus 04/22/2021 Type 1 diabetes mellitus without complications 0 11/19/2017 Alcohol abuse 06/20/2011 Overview (10/31/2020): Overview: sober since 08/31/13 Seizure 06/20/2011 Overview (10/31/2020): Overview: 2010, from hypoglycemia Resolved Problems Problem Noted Date Diagnosed Date Resolved Date Type 1 diabetes mellitus wit h other diabetic kidney complication 12/30/2009 11/19/2017 Overview (03/25/2017): Overview: diagnosis 2008 Immunizations Name Administration Dates Next Due 4vHPV (Gardasil) 12/11/2010,03/30/2008, 7 Flu Vac (3+ yrs) 07/09/2013, 2,10/03/2010, 008 Flublok (RIV3) 10/21/2016 HepA Adult (19+ yrs) 03/30/2008,12/31/2006 HepB Adult (Engerix-B, 20+ y rs, 3 dose series) 02/16/2018,07/09/2013,12/11/2010 HepB Ped/Adol (0-18 yrs) 08/29/2000 Influenza IIV4 (Quadrivalent ) 0.5mL (02282) 08/17/2021,08/16/2020,08/19/2019, 018,11/19/2017,10/13/2014 Genaro COVID-19 Vaccine 01/18/2021 MMR 02/08/2009,02/22/1999 Moderna Monovalent 12+ 08/27/2021 PPSV23 (Pneumovax) 02/16/2018 Td 02/22/1999 Td (7+ yrs) 02/22/1999 Tdap 02/09/2009,02/08/2009 Family History Medical History Relation Name Comments No Known Problems Father No Known Problems Mother Heart Disease Maternal Grandfather No Known Problems Maternal Grandmother Heart Disease Paternal Grandfather x8 [place] Alcohol Abuse Paternal Grandmother Anxiety Sister 1 Anxiety Sister 2 Relation Name Status Comments Father Alive Mother Alive Maternal Grandfather Maternal Grandmother Paternal Grandfather Paternal Grandmother Sister 1 Alive Sister 2 Alive Social History Tobacco Use Types Packs/Day Years Used Date Smoking Tobacco: Former Cigarettes Q uit: 03/23/2015 Smokeless Tobacco: Never Alcohol Use Standard Drinks/Week Comments No 0 (1 standard drink = 0.6 oz pur e alcohol) Quit 08-31-2013 Sex and Gender Information Value Date Recorded Sex Assigned at Not on file Gender Identity Not on file Sexual Orientation Not on file Last Filed Vital Signs Vital Sign Reading Time Taken Comments Blood Pressure 131/85 10/28/2021 11:21 AM [employer] Pulse 85 10/28/2021 11:21 AM [employer] Temperature 36.8 C (98.2 F) 10/28/2021 11:21 AM [employer] Respiratory Rate 16 10/28/2021 11:21 AM [employer] Oxygen Saturation 99% 10/28/2021 11:21 AM [employer] Inhaled Oxygen Concentration - - Weight 69 kg (152 lb 3.2 oz) 04/22/2021 3:44 PM CDT Height 167.6 cm (5' 6) 04/22/2021 12:42 PM CDT Body Mass Index 24.57 04/22/2021 12:42 PM CDT Plan of Treatment Health Maintenance Due Date Last Done Comments Diabetes: Foot Exam 1986 Diabetes: Urine Microalbumin 1986 Hep C Screening (Preventive Services) 1986 HIV Screening (Preventive Services) 2002 DTaP/Tdap/Td (4 - Tdap) 02/09/2019 02/10/20 09, 02/08/2009, 02/22/1999, Additional history exists Pneumococcal (2 - PCV) 02/16/2019 02/16/2018 Diabetes: Eye Exam 06/10/2019 06/10/2018 (Completed) Adult Preventive Visit 02/17/2020 02/16/2018 Cervical Cancer Screening 02/16/2021 02/16/2018 Diabetes: HGBA1C 10/22/2021 04/22/2021, , 03/25/2017 Diabetes: Lipid Panel 03/25/2022 03/25/2017 Diabetes: Creatinine 04/23/2022 04/23/2021, 04/22/2021, 04/22/2021, Additional history exists COVID-19 Vaccine ( season) 2024 08/27/2021, 01/18/2021 Influenza (#1) 2024 08/17/2021, 08/03, 08/19/2019, Additional history exists Zoster/Shingles (1 of 2) 2036 HepA Aged Out 03/30/2008, 12/31/2006 Kika gauthier nger eligible based on patient's age to complete this topic HPV Vaccine Completed 12/11/2010, 03/04, 12/31/2006 HepB Completed 02/16/2018, 0 04/2013, 12/11/2010, Additional history exists Hib Aged Out No longer eligi ble based on patient's age to complete this topic IPV (Polio) Aged Out No longer eligi ble based on patient's age to complete this topic MCV4 Aged Out No longer eligi ble based on patient's age to complete this topic Goals Goal Patient Goal Type Associated Problems Recent Progress Patient-Stated? Author Monitoring my diabetes Diabetes Education Dahiana Mane, RDN, LD, CDCES Note: Bring food and glucose data to your next appointment. Procedures Procedure Name Priority Date/Time Associated Diagnosis Comments CREATININE / GFR Routine 04/23/2021 7:22 AM CDT HGB A1C Routine 04/22/2021 1:47 PM CDT ANATOMICAL PATH LIQUID BASED Routine 02/16/2018 4:47 PM CDT LIPID PANEL & DIRECT LDL (IF NEEDED) Routine 03/25/2017 3:17 PM CDT Type 1 diabetes mellitus with other diabetic kidney complication (HRC) from Last 3 Months or Most Recently Relevant to Health Maintenance Results * Creatinine / GFR (04/23/2021 7:22 AM CDT) Creatinine 0.76 0.55 - 1.02 mg/dL 04/23/2021 8:04 AM CDT [facility] GFR, Estimated >60 >60 mL/min/1.7 3m2 04/23/2021 8:04 AM CDT [facility] Blood Venipuncture Butterfly / Unknown 04/23/2021 7:22 AM CDT 04/23/2021 7:31 AM CDT Madison Gillis MD LAB_1 [facility] [address] * (ABNORMAL) HGB A1C (04/22/2021 1:47 PM CDT) Hemoglobin A1C 10.9(H) <=5.6 % 04/23/2021 8:36 AM CDT [facility] Blood Venipuncture / Unknown 04/22/2021 1:47 PM CDT 04/22/2021 1:52 PM CDT Narrative [facility] - 04/23/2021 8:36 AM CDT For patients not previously diagnosed with diabetes: 5.7-6.4%: Increased risk for diabetes 6.5% and greater: Diagnostic for diabetes For patients diagnosed with diabetes: <8.0%: Goal of therapy for ages 18-75 Clinicians may recommend a higher or lower goal for specific individuals. Madison Gillis MD LAB_1 Performing Organization Address [facility] Co de Phone Number [facility] [address] [phone] * Pap Smear (02/16/2018 4:47 PM CDT) 02/16/2018 4:47 PM CDT Narrative [facility] - 02/23/2018 4:17 PM CDT FINAL GYNECOLOGICAL CYTOLOGY REPORT Pathology #: [id number] Date Obtained: 02/16/2018 Date Received: 02/17/2018 INTERPRETATION/RESULTS: Negative for Intraepithelial Lesion or Malignancy. SPECIMEN ADEQUACY: Satisfactory for Evaluation. Endocervical cells/transformation zone component present. Verified on 02/18/2018 by MARIA GUADALUPE VILLARREAL(ASCP) (electronic signature) CLINICAL NOTES: Abnormal bleeding: No, LMP: 02/10/2018, Menstrual status: None Apply, Current form of therapy: None apply LIQUID BASED PAP SMEAR SPECIMEN TYPE: ROUTINE CERVICAL PAP TEST PLEASE NOTE: The pap smear is a screening test designed to aid in the detection of cervical cancer and its precursor lesions. It is not a diagnostic procedure and should not be used as the sole means of detecting cervical cancer. Both false-positive and false-negative reports may occur. Performed at [address] [address] Sylvia Fay PA-C LAB_1 Performing Organization Address [facility] Co de Phone Number PN SOFT [facility] [place] [address] * Lipid Panel - LDLD If Trig High (03/25/2017 3:17 PM CDT) Cholesterol 158 0 - 199 mg/dL PN SOFT Triglycerides 137 4 - 149 mg/dL PN [facility] HDL Cholesterol 64 >39 mg/dL PN [facility] Cholesterol/HDL Ratio Screen 2.5 PN SO[facility] LDL Calculated 67 19 - 130 mg/dL PN SOFT Hours Fasting 0.5 PN SOFT 03/25/2017 3:17 PM CDT 03/25/2017 6:51 PM CDT Narrative PN SOFT - 03/25/2017 7:23 PM CDT Performed at [facility], [address] [place] [address] CLIA number [id number] Paola Clemons MD LAB_1 PN [facility] [address] [place] [address] from Last 3 Months or Most Recently Relevant to Health Maintenance Advance Directives * Full Code (Latest Code Status on File) Date Activated Date Inactivated Comments 04/22/2021 1:33 PM 04/23/2021 2:07 PM Question Answer Comments On Admission, Code status was determined by: Dis cussed with patient/family Care Teams Environmental Emergencies Planner Relationship Specialty Start Date End Date Paola Clemons MD [address] [place] [place] [address] [address] [address] PCP - General Family Practice 04/22/21
--- OUTSIDE RECORDS SUMMARY | 2024-12-06 19:10 | XMS_ITS | Encounter Summary ---
Author Organization [facility] Address [address] [address] Phone Care Team Providers Care Postage Machine Operator Name Role Phone Paola Clemons MD Primary Care Provider [phone]- [phone] Rosmery Albright APRN, LEAFLET OR NEWSPAPER DELIVERER Unavailable Fred Leyva MD Primary Care Provider Oleg Morris MD Unavailable [phone] Fred Leyva MD Primary Care Provider Baron Collado LEAFLET OR NEWSPAPER DELIVERER Primary Care Provider [phone] Reason for Visit * Reason Comments Refill Request Encounter Details Date Type Department Care Team ([facility] st Contact Info) Description 05/07/2022 Refill [facility] ENDOCRINOLOGY [address] [facility] [address] [place] [address] Rosmery Albright APRN, LEAFLET OR NEWSPAPER DELIVERER [address] [facility] [address] [place] [address] Refill Request Social History Tobacco Use Types Packs/Day Years Used Date Smoking Tobacco: Former Smokeless Tobacco: Never Comments:Quit 7 years ago Alcohol Use Standard Drinks/Week Comments Never 0 (1 standard drink = 0.6 oz pur e alcohol) 8 Years sober Comments Unknown Sex and Gender Information Value Date Recorded Sex Assigned at Female 09/12/2021 12:45 PM MANAGER TRUST Legal Sex Female 3:03 PM CDT Gender Identity Female 09/12/2021 12:45 PM MANAGER TRUST Sexual Orientation Not on file documented as of this encounter Ordered Prescriptions Prescription Sig Dispense Quantity Refills Last Filled Start Date End Date Continuous Blood Gluc Transmit (Dexcom G6 Transmitter) MiscIndications:Ty pe 1 diabetes mellitus without complication (HCC) USE DIRECTED FOR CONTINUOUS GLUCOSE MONITORING CHANGE EVERY 90 DAYS 1 Each 3 05/08/2022 documented in this encounter Plan of Treatment Upcoming Encounters Date Type Department Care Team (Late st Contact Info) Description 01/07/2025 2:30 PM MANAGER TRUST Appointment [facility] ENDOCRINOLOGY [address] [place] [address] [address] [place] [address] Rosmery Albright, CNC GRINDER, LEAFLET OR NEWSPAPER DELIVERER [address] [facility] [address] [place], [place] [id number] documented as of this encounter Visit Diagnoses Diagnosis Sleep difficulties Sleep disturbance, unspecified Type 1 diabetes mellitus without complication (HCC) Type I (juvenile type) diabetes mellitus without mention of complication, not stated as uncontrolled documented in this encounter Discontinued Medications Medication Sig Discontinue Reason Start Date End Da te Continuous Blood Gluc Transmit (Dexcom G6 Transmitter) MiscIndications:Type 1 diabetes mellitus without complication (HCC) USE DIRECTED FOR CONTINUOUS GLUCOSE MONITORING CHANGE EVERY 90 DAYS 04/22/2022 05/08/2022 documented as of this encounter Additional Health Concerns Infection Onset Date Last Indicated Resolved Time COVID-19 Confirmed 08/25/2022 08/25/2022 11:06 PM MANAGER TRUST R/O Respiratory Pathogens 11/26/2023 11/26/2023 6:05 PM MANAGER TRUST R/O COVID-19 11/26/2023 11/26/2023 11/26/2023 6:05 PM MANAGER TRUST R/O Respiratory Pathogens 01/14/2024 01/14/2024 8:05 PM CDT R/O COVID-19 01/14/2024 01/14/2024 01/14/2024 8:05 PM CDT COVID-19 Confirmed 01/14/2024 01/14/2024 11:06 PM CDT documented as of this encounter Care Teams Postage Machine Operator Relationship Specialty Start Date End Date Paola Clemons MD [facility] [address] [facility] [address] [place] [address] PCP - General Family Medicine 10/25/22 12/16/22 Fred Leyva MD [address] [address] PCP - General Internal Medicine 12/17/22 05/09/23 Fred Leyva MD [address] [address] PCP - General Internal Medicine 07/18/23 08/21/23 Baron Collado LEAFLET OR NEWSPAPER DELIVERER [address] [address] PCP - General Nurse Practitioner 12/01/24 Rosmery Albright APRN, LEAFLET OR NEWSPAPER DELIVERER [address] [facility] [address] [place] [address] Endocrinology 11/14/21 Oleg Morris MD [address] [address] Gastroenterology 01/22/23 documented as of this encounter
--- OUTSIDE RECORDS SUMMARY | 2024-12-06 19:10 | XMS_ITS | Encounter Summary ---
Author Organization [facility] Address [address] [address] Phone Care Team Providers Care Hydraulic Billet Maker Name Role Phone Rosmery Albright APRN, CNP Unavailable Fred Leyva MD Primary Care Provider Oleg Morris MD Unavailable Fred Leyva MD Primary Care Provider [phone] Baron Collaod CNP Primary Care Provider [phone] Reason for Visit * Reason Onset Date Comments Refill Request 01/09/2023 Encounter Details Date Type Department Care Team (Late st Contact Info) Description 01/09/2023 Refill [facility] [address] [place] [address] [place] [phone] Fred Leyva MD [address] [place] [place] [address] Refill Request Social History Tobacco Use Types Packs/Day Years Used Date Smoking Tobacco: Former Smokeless Tobacco: Never Comments:Quit 7 years ago Alcohol Use Standard Drinks/Week Comments Not Currently 0 (1 standard drink = 0.6 oz pur e alcohol) 08/31/2013 Comments No Sex and Gender Information Value Date Recorded Sex Assigned at Female 09/12/2021 12:45 PM FAMILY CONSUMER SCIENCE FCS TEACHER Legal Sex Female 3:03 PM CDT Gender Identity Female 09/12/2021 12:45 PM FAMILY CONSUMER SCIENCE FCS TEACHER Sexual Orientation Not on file documented as of this encounter Functional Status * Patient's Vision Adequate to Safely Complete Daily Activities Answer Date of Assessment Author Yes 10/25/2022 1:48 PM FAMILY CONSUMER SCIENCE FCS TEACHER Triston Hewitt RN * Patient's Memory Adequate to Safely Complete Daily Activities Answer Date of Assessment Author Yes 10/25/2022 1:48 PM FAMILY CONSUMER SCIENCE FCS TEACHER Triston Hewitt RN documented as of this encounter Mental Status * Patient's Judgment Adequate to Safely Complete Daily Activities Answer Entry Date Author Yes 10/25/2022 1:48 PM FAMILY CONSUMER SCIENCE FCS TEACHER Triston Hewitt RN documented in this encounter Miscellaneous Notes * Telephone Encounter - Celestino Costa RN - 01/14/2023 1:05 PM CDT Duplicate request for Medication Insulin Glargine/Toujeo SoloStar . Medication refilled on 01/09/23. Requested drug refills are denied. Sending to Clinic support for PA as notes from Rx order request PA. Thank you. * Telephone Encounter - Kasey Orellana - 01/09/2023 10:12 AM CST Medication refill received via fax. Medication found on medication list and pended. Pharmacy selected: Yes Additional comments from pharmacy: N/A Routing to nursing for review. LY CONSUMER SCIENCE FCS TEACHER documented in this encounter Plan of Treatment Upcoming Encounters Date Type Department Care Team ([facility] st Contact Info) Description 01/07/2025 2:30 PM FAMILY CONSUMER SCIENCE FCS TEACHER Appointment [facility] ENDOCRINOLOGY [address] [place] [address] [address] [place] [phone] Rosmery Albright, MARKETING EFFECTIVENESS MANAGER, COLLECTIONS MANAGER [address] [facility] [address] [place], [place] [id number] documented as of this encounter Visit Diagnoses Not on filedocumented in this encounter Additional Health Concerns Infection Onset Date Last Indicated Resolved Time R/O Respiratory Pathogens 11/26/2023 11/26/2023 6:05 PM FAMILY CONSUMER SCIENCE FCS TEACHER R/O COVID-19 11/26/2023 11/26/2023 11/26/2023 6:05 PM FAMILY CONSUMER SCIENCE FCS TEACHER R/O Respiratory Pathogens 01/14/2024 01/14/2024 8:05 PM CDT R/O COVID-19 01/14/2024 01/14/2024 01/14/2024 8:05 PM CDT COVID-19 Confirmed 01/14/2024 01/14/2024 11:06 PM CDT documented as of this encounter Care Teams Hydraulic Billet Maker Relationship Specialty Start Date End Date Fred Leyva MD [address] [address] PCP - General Internal Medicine 12/17/22 05/09/23 Fred Leyva MD [address] [id number] PCP - General Internal Medicine 07/18/23 08/21/23 Baron Collado COLLECTIONS MANAGER [address] [address] PCP - General Nurse Practitioner 12/01/24 Rosmery Albright APRN, COLLECTIONS MANAGER [address] [facility] [address] [place] [address] Endocrinology 11/14/21 Oleg Morris MD [address] [address] Gastroenterology 01/22/23 documented as of this encounter
--- OUTSIDE RECORDS SUMMARY | 2024-12-06 19:11 | XMS_ITS | Encounter Summary ---
Author Organization [facility] Address [address] [address] Phone Care Team Providers Care Keg Varnisher Name Role Phone Paola Clemons MD Primary Care Provider [phone] Rosmery Albright APRN, SENIOR CORPORATE RECRUITER Unavailable [phone] Fred Leyva MD Primary Care Provider [phone] Oleg Morris MD Unavailable [phone] Fred Leyva MD Primary Care Provider Baron Collado SENIOR CORPORATE RECRUITER Primary Care Provider [phone] Reason for Visit * Reason Comments Refill Request Encounter Details Date Type Department Care Team ([facility] st Contact Info) Description 06/23/2022 Refill [facility] [address] [address] [place] [address] Rosmery Albright APRN, SENIOR CORPORATE RECRUITER [address] [facility] [address] [address] [place] [address] Refill Request Social History Tobacco Use Types Packs/Day Years Used Date Smoking Tobacco: Former Smokeless Tobacco: Never Comments:Quit 7 years ago Alcohol Use Standard Drinks/Week Comments Never 0 (1 standard drink = 0.6 oz pur e alcohol) 8 Years sober Comments Unknown Sex and Gender Information Value Date Recorded Sex Assigned at Female 09/12/2021 12:45 PM BOX FINISHER Legal Sex Female 3:03 PM CDT Gender Identity Female 09/12/2021 12:45 PM BOX FINISHER Sexual Orientation Not on file documented as of this encounter Ordered Prescriptions Prescription Sig Dispense Quantity Refills Last Filled Start Date End Date insulin glargine (Lantus SoloStar) 100 UNIT/ML pen injectionIndicati ons:Type 1 diabetes mellitus without complication (HCC) Administer up to 45 units subcutaneous daily NEEDS an apt SILVIO 15 mL 06/24/2022 documented in this encounter Plan of Treatment Upcoming Encounters Date Type Department Care Team ([facility] st Contact Info) Description 01/07/2025 2:30 PM BOX FINISHER Appointment [facility] [address] [place] [id number] Rosmery Albright, [employer]ER, SENIOR CORPORATE RECRUITER [address] [facility] [address] [place] [address] documented as of this encounter Visit Diagnoses Diagnosis Type 1 diabetes mellitus without complication (HCC) Type I (juvenile type) diabetes mellitus without mention of complication, not stated as uncontrolled documented in this encounter Discontinued Medications Medication Sig Discontinue Reason Start Date End Da te Lantus SoloStar 100 UNIT/ML pen injectionIndications:Type 1 diabetes mellitus without complication (HCC) INJECT UP TO 45 UNITS EVERY DAY 10/29/2021 06/24/2022 documented as of this encounter Additional Health Concerns Infection Onset Date Last Indicated Resolved Time COVID-19 Confirmed 08/25/2022 08/25/2022 11:06 PM BOX FINISHER R/O Respiratory Pathogens 11/26/2023 11/26/2023 6:05 PM BOX FINISHER R/O COVID-19 11/26/2023 11/26/2023 11/26/2023 6:05 PM BOX FINISHER R/O Respiratory Pathogens 01/14/2024 01/14/2024 8:05 PM CDT R/O COVID-19 01/14/2024 01/14/2024 01/14/2024 8:05 PM CDT COVID-19 Confirmed 01/14/2024 01/14/2024 11:06 PM CDT documented as of this encounter Care Teams Keg Varnisher Relationship Specialty Start Date End Date Paola Clemons MD [facility] [address] [facility] [address] [place] [id number] PCP - General Family Medicine 10/25/22 12/16/22 Fred Leyva MD [address] [address] PCP - General Internal Medicine 12/17/22 05/09/23 Fred Leyva MD [address] [id number] PCP - General Internal Medicine 07/18/23 08/21/23 Baron Collado CNP [address] [address] PCP - General Nurse Practitioner 12/01/24 Rosmery Albright APRN, SENIOR CORPORATE RECRUITER [address] [facility] [address] [place] [address] Endocrinology 11/14/21 Oleg Morris MD [address] [address] Gastroenterology 01/22/23 documented as of this encounter
--- OUTSIDE RECORDS SUMMARY | 2024-12-06 19:11 | XMS_ITS | Encounter Summary ---
Author Organization [facility] Address [address] [address] Phone Care Team Providers Care Citrix Engineer Name Role Phone Rosmery Albright APRN, CNP Unavailable [phone] Oleg Morris MD Unavailable [phone] Reason for Referral * Office Visit (Routine) - New Request Specialty Diagnoses / Procedures Referred By Estrada steiner Referred To Contact Internal Medicine Diagnoses Hospital discharge follow-up Diabetic ketoacidosis without coma associated with type 1 diabetes mellitus (HCC) Ayden Ahuja DO [address] [place] [address] Phone: tel: fax: Referral ID Status Reason Start Date Expiration Date V isits Requested Visits Authorized [id number] New Request 11/26/2024 11/26/2025 1 1 Question Answer What type of Primary Care are you looking for? Hospital Follow-Up [9] Comments Follow-up with PCP in 1-2 weeks: Baron Collado CNP ACKER Reason for Visit * Auth/Cert (Routine) Specialty Diagnoses / Procedures Referred By Contdiego t Referred To Contact Diagnoses LUCAS, John Archuleta MD [address] [place] [address] Phone: tel: fax: Referral ID Status Reason Start Date Expiration Date Visits Re quested Visits Authorized [id number] 1 1 Encounter Details Date Type Department Care Team (Latest Contact Info) Description 11/25/2024 6:25 PM UNSTACKER - 11/26/2024 1:02 PM UNSTACKER Hospital Encounter [facility] 15 MED SURG [address] [place] [address] John Archuleta MD [address] [place] [address] Ayden Ahuja DO [address] [place] [address] Hospital discharge follow-up (Primary Dx); Diabetic ketoacidosis without coma associated with type 1 diabetes mellitus (HCC) Discharge Disposition: Home and/or Self Care Social History Tobacco Use Types Packs/Day Years Used Date Smoking Tobacco: Former Cigarettes 1 13 0 06/03/2001 - 06/03/2014 Smokeless Tobacco: Never Tobacco Cessation:Counseling Given: No Comments:Quit 7 years ago Alcohol Use Standard Drinks/Week Comments Yes 16 (1 standard drink = 0.6 oz pure alcohol) sober for 10 years, relapsed [address] [facility] [employer] Answer Date Recorded In the past 12 months has [employer], gas, oil, or water [employer] threatened to shut off services in your [...] any time in the past 12 m [facility], were you homeless or living in a long term (including now)? No 11/25/2024 EH IP Custom IPV Answer Date Recorded Do you feel UNSAFE in any of your personal relationships with your family members or any other acquaintances? No 2024 Comments No Sex and Gender Information Value Date Recorded Sex Assigned at Female 09/12/2021 12:45 PM UNSTACKER Legal Sex Female 3:03 PM CDT Gender Identity Female 09/12/2021 12:45 PM UNSTACKER Sexual Orientation Not on file documented as of this encounter Last Filed Vital Signs Vital Sign Reading Time Taken Comments Blood Pressure 113/72 11/26/2024 8:41 AM UNSTACKER Pulse 98 11/26/2024 8:41 AM UNSTACKER Temperature 36.6 C (97.9 F) 11/26/2024 4:24 AM UNSTACKER Respiratory Rate 16 11/26/2024 8:41 AM UNSTACKER Oxygen Saturation 99% 11/26/2024 4:24 AM UNSTACKER Inhaled Oxygen Concentration - - Weight 66 kg (145 lb 8.1 oz) 11/26/2024 4:22 AM UNSTACKER Height 167.6 cm (5' 6) 11/25/2024 6:23 PM UNSTACKER Body Mass Index 23.48 11/25/2024 6:23 PM UNSTACKER documented in this encounter Functional Status * Patient's Vision Adequate to Safely Complete Daily Activities Answer Date of Assessment Author Yes 11/25/2024 7:41 PM UNSTACKER Ameena Sr RN * Patient's Memory Adequate to Safely Complete Daily Activities Answer Date of Assessment Author Yes 11/25/2024 7:41 PM Ameena Gary RN documented as of this encounter Mental Status * Patient's Judgment Adequate to Safely Complete Daily Activities Answer Entry Date Author Yes 11/25/2024 7:41 PM UNSTACKER Ameena Sr RN documented in this encounter Discharge Summaries * Ayden Ahuja DO - 11/26/2024 11:42 AM CST Images from the original note were not included. Discharge Summary Hospital Medicine Service Patient Name: Dahiana Morales Date of : 1985 Age: [age] year old Primary Physician: Baron Collado CNP Admitting Physician: John Archuleta MD Admission Date:11/25/2024 Discharging Physician: Ayden Ahuja DO Discharge Date: 11/26/24 Discharge Diagnoses Principal Problem: Diabetic ketoacidosis without coma associated with type 1 diabetes mellitus (HCC) Active Problems: Type 1 diabetes mellitus (HCC) History of alcohol abuse EDIL (generalized anxiety disorder) Resolved Problems: * No resolved hospital problems. * Follow-Up Recommendations for the Outpatient Clinician A1c 9% further education on diabetes management diet etc. Hospital Course Dahiana is a 39 year old female past medical history notable for generalized anxiety disorder, DM 1, previous history of alcohol use disorder admitted for DKA on 11/25/2023 it appears that this was due to a kink lying in her insulin pump. Insulin pump was interrogated by endocrinology and felt to be functional. Patient transition from insulin drip back to home pump prior to discharge without any issues. Disposition and Discharge Plan Medications: Current Discharge Medication List Continued Details Baqsimi Two Pack 3 MG/DOSE Powder Generic drug: Glucagon Dose: 3 mg 3 mg, Nasal, NEEDED clindamycin 1 % solution Commonly known as: Cleocin T APPLY TOPICALLY TO THE AFFECTED AREA TWICE DAILY Contour Next Test Generic drug: glucose blood test USE TO CHECK BLOOD SUGAR UP TO 6 TIMES DAILY Dexcom G6 Senior Electrical Design Engineer Device by Does not apply route. Dexcom G6 Sensor Misc Dose: 1 Each 1 Each, Subcutaneous, EVERY 10 DAYS, Use to check blood sugars daily per layout inspector's recommendation. Dexcom G6 Transmitter Misc 1 EACH BY ROUTE EVERY 3 MONTHS. USE TO CHECK BLOOD SUGARS DAILY PER SKEINS YARN EXAMINER'S RECOMMENDATION escitalopram 10 MG tablet Commonly known as: Lexapro Dose: 10 mg 10 mg, Oral, ONCE DAILY famotidine 20 MG tablet Commonly known as: Pepcid Dose: 20 mg 20 mg, Oral, ONE TIME DAILY NEEDED, Goal: 2 times a week. Administer 10 to 60 minutes before eating food or drinking beverages known to cause heartburn * insulin aspart FlexPen 100 UNIT/ML pen injection Commonly known as: NovoLOG INJECT UP TO 45 UNITS EVERY DAY NEEDED FOR EMERGENCY PUMP BACK UP PLAN * insulin aspart 100 UNIT/ML vial injection Commonly known as: NovoLOG ADMINISTER UP TO 60 UNITS VIA INSULIN PUMP DAILY insulin glargine 100 UNIT/ML pen injection Commonly known as: Lantus SoloStar Up to 45 units daily * Insulin Pen Needle 29G X 5MM Misc Dose: 1 Units 1 Units, Does not apply, 6 TIMES DAILY * B-D ULTRAFINE III SHORT PEN 31G X 8 MM device Generic drug: insulin pen needle USE 1 EACH EVERY DAY FOR INSULIN ADMINISTRATION INSULIN SYRINGE 1CC/31GX5/16 31G X 5/16 1 ML Misc Dose: 1 Each 1 Each, SEE ADMIN INSTRUCTIONS, 5 TIMES DAILY, Use to administer insulin up to 5 times a day metoclopramide 10 MG tablet Commonly known as: Reglan Dose: 10 mg 10 mg, Oral, 4 TIMES DAILY NEEDED Microlet Lancets Misc by Does not apply route. * Omnipod 5 [id number] Intro Gen 5 Kit Does not apply, Intro kit, 10 pods, use one pod every 3 days * Omnipod 5 [id number] Pods Gen 5 Misc Dose: 1 Units 1 Units, Does not apply, SEE ADMINISTRATION INSTRUCTIONS, Change pod every 48-72 hours ondansetron 4 MG disintegrating tablet Commonly known as: Zofran ODT DISSOLVE 1 TABLET ON THE TONGUE EVERY 8 HOURS NEEDED FOR NAUSEA traZODone 50 MG tablet Commonly known as: Desyrel Dose: 50-100 mg 50-100 mg, Oral, AT BEDTIME * This list has 6 medication(s) that are the same as other medications prescribed for you. Read thedirections carefully, and ask your doctor or other care provider to review them with you. You might also be taking other medications not listed above. If you have questions about any of your other medications, talk to the person who prescribed them or your Primary Care Provider. Disposition: Dahiana was discharged from [facility] 15 Med Surg to home. Dahiana was seen and examined on the date of discharge. Patient Instructions / Education: Please see After Visit Summary No future appointments. Referrals & Outpatient Orders: Discharge Procedure Orders Appt with Internal Medicine Referral Priority: Routine Referral Type: Office Visit Requested Specialty: Internal Medicine Number of Visits Requested: 1 Expiration Date: 11/26/25 Condition on Discharge Vital Signs: Blood pressure 113/72, pulse 98, temperature 36.6 ??C (97.9 ??F), temperature source Oral, resp. rate 16, height 1.676 m (5' 6), weight 66 kg (145 lb 8.1 oz), last menstrual period 11/04/2024, SpO2 99%. Physical Exam Constitutional: Appearance: Normal appearance. HENT: Head: Normocephalic and atraumatic. Mouth/Throat: Mouth: Mucous membranes are moist. Eyes: Extraocular Movements: Extraocular movements intact. Pupils: Pupils are equal, round, and reactive to light. Cardiovascular: Rate and Rhythm: Normal rate and regular rhythm. Pulmonary: Effort: Pulmonary effort is normal. Skin: General: Skin is warm and dry. Neurological: Mental Status: She is alert and oriented to person, place, and time. Code Status:Full Code Hospitalization Data and Events Recent Labs: In Process Labs (336h ago, onward) None Recent Results (from the past 24 hours) BASIC METABOLIC PANEL Result Value Ref Range Sodium 133 (L) 134 - 143 mEq/L Potassium 4.4 3.4 - 5.1 mEq/L Chloride 102 99 - 110 mEq/L Carbon Dioxide 12 (L) 19 - 29 mEq/L Anion Gap 19.0 (H) 3.0 - 15.0 mEq/L Blood Urea Nitrogen 26 (H) 5 - 24 mg/dL Creatinine 1.19 (H) 0.40 - 1.00 mg/dL Glomerular Filtration Rate 60 (L) >60 mL/min/1.73 m*2 Calcium 8.2 (L) 8.4 - 10.5 mg/dL Glucose 303 (H) 70 - 99 mg/dL Narrative Current ADA criteria for Glucose: Normal: 70-99 mg/dL Impaired Fasting Glucose: 100-125 mg/dL Diabetes Mellitus: at or above 126 mg/dL The diagnosis of diabetes must be confirmed on a subsequent day by measuring Fasting Plasma Glucose, 2-hr PG or random plasma glucose (if symptoms are present). Current ADA criteria for Glucose: Normal: 70-99 mg/dL Impaired Fasting Glucose: 100-125 mg/dL Diabetes Mellitus: at or above 126 mg/dL The diagnosis of diabetes must be confirmed on a subsequent day by measuring Fasting Plasma Glucose, 2-hr PG or random plasma glucose (if symptoms are present). Recommended NA correction for Glucose >250: Measured NA + (0.016X(glucose-100)) for the [employer] chemistry analyzers. PHOSPHORUS Result Value Ref Range Phosphorus 2.7 2.5 - 4.6 mg/dL GLUCOSE, METER Result Value Ref Range Glucose Meter 336 (H) 70 - 99 mg/dL BASIC METABOLIC PANEL Result Value Ref Range Sodium 133 (L) 134 - 143 mEq/L Potassium 4.4 3.4 - 5.1 mEq/L Chloride 103 99 - 110 mEq/L Carbon Dioxide 13 (L) 19 - 29 mEq/L Anion Gap 17.0 (H) 3.0 - 15.0 mEq/L Blood Urea Nitrogen 26 (H) 5 - 24 mg/dL Creatinine 1.20 (H) 0.40 - 1.00 mg/dL Glomerular Filtration Rate 59 (L) >60 mL/min/1.73 m*2 Calcium 8.0 (L) 8.4 - 10.5 mg/dL Glucose 326 (H) 70 - 99 mg/dL Narrative Current ADA criteria for Glucose: Normal: 70-99 mg/dL Impaired Fasting Glucose: 100-125 mg/dL Diabetes Mellitus: at or above 126 mg/dL The diagnosis of diabetes must be confirmed on a subsequent day by measuring Fasting Plasma Glucose, 2-hr PG or random plasma glucose (if symptoms are present). Current ADA criteria for Glucose: Normal: 70-99 mg/dL Impaired Fasting Glucose: 100-125 mg/dL Diabetes Mellitus: at or above 126 mg/dL The diagnosis of diabetes must be confirmed on a subsequent day by measuring Fasting Plasma Glucose, 2-hr PG or random plasma glucose (if symptoms are present). Recommended NA correction for Glucose >250: Measured NA + (0.016X(glucose-100)) for the [employer] chemistry analyzers. GLUCOSE, METER Result Value Ref Range Glucose Meter 293 (H) 70 - 99 mg/dL GLUCOSE, METER Result Value Ref Range Glucose Meter 257 (H) 70 - 99 mg/dL GLUCOSE, METER Result Value Ref Range Glucose Meter 215 (H) 70 - 99 mg/dL BASIC METABOLIC PANEL Result Value Ref Range Sodium 133 (L) 134 - 143 mEq/L Potassium 4.0 3.4 - 5.1 mEq/L Chloride 106 99 - 110 mEq/L Carbon Dioxide 18 (L) 19 - 29 mEq/L Anion Gap 9.0 3.0 - 15.0 mEq/L Blood Urea Nitrogen 29 (H) 5 - 24 mg/dL Creatinine 1.20 (H) 0.40 - 1.00 mg/dL Glomerular Filtration Rate 59 (L) >60 mL/min/1.73 m*2 Calcium 7.8 (L) 8.4 - 10.5 mg/dL Glucose 219 (H) 70 - 99 mg/dL Narrative Current ADA criteria for Glucose: Normal: 70-99 mg/dL Impaired Fasting Glucose: 100-125 mg/dL Diabetes Mellitus: at or above 126 mg/dL The diagnosis of diabetes must be confirmed on a subsequent day by measuring Fasting Plasma Glucose, 2-hr PG or random plasma glucose (if symptoms are present). GLUCOSE, METER Result Value Ref Range Glucose Meter 183 (H) 70 - 99 mg/dL GLUCOSE, METER Result Value Ref Range Glucose Meter 167 (H) 70 - 99 mg/dL GLUCOSE, METER Result Value Ref Range Glucose Meter 160 (H) 70 - 99 mg/dL PHOSPHORUS Result Value Ref Range Phosphorus 1.8 (L) 2.5 - 4.6 mg/dL BASIC METABOLIC PANEL Result Value Ref Range Sodium 134 134 - 143 mEq/L Potassium 3.8 3.4 - 5.1 mEq/L Chloride 107 99 - 110 mEq/L Carbon Dioxide 19 19 - 29 mEq/L Anion Gap 8.0 3.0 - 15.0 mEq/L Blood Urea Nitrogen 29 (H) 5 - 24 mg/dL Creatinine 1.17 (H) 0.40 - 1.00 mg/dL Glomerular Filtration Rate 61 >60 mL/min/1.73 m*2 Calcium 7.6 (L) 8.4 - 10.5 mg/dL Glucose 131 (H) 70 - 99 mg/dL Narrative Current ADA criteria for Glucose: Normal: 70-99 mg/dL Impaired Fasting Glucose: 100-125 mg/dL Diabetes Mellitus: at or above 126 mg/dL The diagnosis of diabetes must be confirmed on a subsequent day by measuring Fasting Plasma Glucose, 2-hr PG or random plasma glucose (if symptoms are present). MAGNESIUM Result Value Ref Range Magnesium 1.8 1.8 - 2.7 mg/dL GLUCOSE, METER Result Value Ref Range Glucose Meter 142 (H) 70 - 99 mg/dL GLUCOSE, METER Result Value Ref Range Glucose Meter 107 (H) 70 - 99 mg/dL GLUCOSE, METER Result Value Ref Range Glucose Meter 87 70 - 99 mg/dL GLUCOSE, METER Result Value Ref Range Glucose Meter 88 70 - 99 mg/dL GLUCOSE, METER Result Value Ref Range Glucose Meter 79 70 - 99 mg/dL GLUCOSE, METER Result Value Ref Range Glucose Meter 84 70 - 99 mg/dL BASIC METABOLIC PANEL Result Value Ref Range Sodium 134 134 - 143 mEq/L Potassium 3.7 3.4 - 5.1 mEq/L Chloride 108 99 - 110 mEq/L Carbon Dioxide 20 19 - 29 mEq/L Anion Gap 6.0 3.0 - 15.0 mEq/L Blood Urea Nitrogen 24 5 - 24 mg/dL Creatinine 0.98 0.40 - 1.00 mg/dL Glomerular Filtration Rate 76 >60 mL/min/1.73 m*2 Calcium 7.7 (L) 8.4 - 10.5 mg/dL Glucose 85 70 - 99 mg/dL Narrative Current ADA criteria for Glucose: Normal: 70-99 mg/dL Impaired Fasting Glucose: 100-125 mg/dL Diabetes Mellitus: at or above 126 mg/dL The diagnosis of diabetes must be confirmed on a subsequent day by measuring Fasting Plasma Glucose, 2-hr PG or random plasma glucose (if symptoms are present). HEMOGLOBIN A1C Result Value Ref Range Hemoglobin A1c 9.0 (H) 4.0 - 5.6 % Estimated Average Glucose 212 mg/dL Narrative HGA1C Reference Ranges >= 6.5 Diabetes* 5.7-6.4 Impaired glucose tolerance <5.7 Normal *In the absence of unequivocal hyperglycemia, results should be confirmed by repeat testing for thediagnosis of diabetes. [place] [employer] 2018 GLUCOSE, METER Result Value Ref Range Glucose Meter 87 70 - 99 mg/dL GLUCOSE, METER Result Value Ref Range Glucose Meter 123 (H) 70 - 99 mg/dL GLUCOSE, METER Result Value Ref Range Glucose Meter 163 (H) 70 - 99 mg/dL GLUCOSE, METER Result Value Ref Range Glucose Meter 172 (H) 70 - 99 mg/dL No results found for: BC Consultants: IP CONSULT TO NUTRITION SERVICES IP CONSULT TO DIABETES IP CONSULT TO L D RN/NURSE Procedures: None Imaging: Results for orders placed or performed during the hospital encounter of 10/20/23 1. US BREAST COLLIN FU RT WO OR W AXILLA LMT Narrative PROCEDURE: MAMM ROBERT DIAG DIGITAL BILAT, US BREAST COLLIN FU RT WO OR W AXILLA LMT. HISTORY: Right breast palpable abnormality. TECHNIQUE: Conventional CC and MLO mammographic views of the bilateral breasts obtained with tomosynthesis. Subsequently, right breast targeted ultrasound performed at the palpable area of concern. COMPARISON: 03/27/2023, 01/28/2023. FINDINGS: Mammogram: The breasts are heterogeneously dense, which may obscure small masses. Right breast palpable abnormality appears to correspond with a large regional asymmetry in the upper breast, though no measurable mass identified. Left breast interval postsurgical changes of excisional biopsy. Ultrasound: At the right breast palpable area of concern centered at the 11 o'clock position, there is a large indistinct homogeneous hypoechoic mass in parallel orientation, very similar to the prior contralateral left breast mass status post ultrasound-guided core needle biopsy 01/28/2023 and excisional biopsy 03/27/2023. 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 Recommendation: Physician Follow-up. Surgical consultation is again recommended for consideration of excisional biopsy. Preoperative ultrasound-guided core needle biopsy may be performed, as clinically indicated. Imaging findings and recommendations discussed with the patient. BI-RADS 3: Probably benign finding - short interval follow-up suggested. Electronically signed by Christiano Nava MD Report Date: 10/20/2023 10:35 AM Ayden Ahuja DO Total time spent for discharge on date of discharge: Greater than 30 minutes. This patient required > eight hours of care in the hospital. ACKER documented in this encounter Discharge Instructions * Discharge Instr - Diet* Luiza Benton RD - 11/26/2024 1:02 PM UNSTACKER Diabetes Food Hub is a great resource for recipes and helping to manage carb counting. ACKER documented in this encounter Medications at Time of Discharge traZODone (Desyrel) 50 MG tabletIndications:S leep difficulties Take 1-2 Tablets by mouth at bedtime. 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 30 Tablet 4 ondansetron (Zofran ODT) 4 MG disintegrating tabletIndications:C hronic nausea DISSOLVE 1 TABLET ON THE TONGUE EVERY 8 HOURS NEEDED FOR NAUSEA 10 Tablet 4 famotidine (Pepcid) 20 MG tabletIndications:G astroesophageal reflux disease without esophagitis Take 1 Tablet by mouth one time a day as needed for Heartburn. Goal: 2 times a week. Administer 10 to 60 minutes before eating food or drinking beverages known to cause heartburn 30 Tablet 4 insulin aspart (NovoLOG) 100 UNIT/ML vial injectionIndication s:Type 1 diabetes mellitus with hyperglycemia (HCC) ADMINISTER UP TO 60 UNITS VIA INSULIN PUMP DAILY 54 mL 3 4 insulin aspart FlexPen (NovoLOG) 100 UNIT/ML pen injectionIndication s:Type 1 diabetes mellitus with hyperglycemia (HCC) INJECT UP TO 45 UNITS EVERY DAY NEEDED FOR EMERGENCY PUMP BACK UP PLAN 3 mL 2 4 metoclopramide (Reglan) 10 MG tabletIndications:N ausea Take 1 Tablet by mouth four times a day as needed for Nausea. 56 Tablet 3 Continuous Glucose Transmitter (Dexcom G6 Transmitter) MiscIndications:Typ e 1 diabetes mellitus with hyperglycemia (HCC) 1 EACH BY ROUTE EVERY 3 MONTHS. USE TO CHECK BLOOD SUGARS DAILY PER SKEINS YARN EXAMINER'S RECOMMENDATION 1 Each 4 Glucagon (Baqsimi Two Pack) 3 MG/DOSE PowderIndications:T ype 1 diabetes mellitus with hyperglycemia (HCC) Instill 3 mg nasally as needed (severe hypoglycemia / unresponsiveness). 2 Each 2 4 Continuous Glucose Sensor (Dexcom G6 Sensor) MiscIndications:Typ e 1 diabetes mellitus with hyperglycemia (HCC) Inject 1 Each under the skin every ten days. Use to check blood sugars daily per layout inspector's recommendation. 9 Each 3 4 glucose blood test (Contour Next Test)Indications:Ty pe 1 diabetes mellitus with hyperglycemia (HCC) USE TO CHECK BLOOD SUGAR UP TO 6 TIMES DAILY 200 Strip 3 4 Insulin Disposable Pump (Omnipod 5 G6 Pods, Gen 5,) MiscIndications:Typ e 1 diabetes mellitus with hyperglycemia (HCC) 1 Units SEE ADMIN INSTR for Other (DM1). Change pod every 48-72 hours 25 Each 3 4 insulin glargine (Lantus SoloStar) 100 UNIT/ML pen injectionIndication s:Type 1 diabetes mellitus with hyperglycemia (HCC) Up to 45 units daily 15 mL 1 4 B-D ULTRAFINE III SHORT PEN 31G X 8 MM deviceIndications:T ype 1 diabetes mellitus without complication (HCC) USE 1 EACH EVERY DAY FOR INSULIN ADMINISTRATION 100 Each 3 4 clindamycin (Cleocin T) 1 % solutionIndications :Acne vulgaris APPLY TOPICALLY TO THE AFFECTED AREA TWICE DAILY 30 mL 5 3 Insulin Disposable Pump (Omnipod 5 G6 Intro, Gen 5,) KitIndications:Type 1 diabetes mellitus with hyperglycemia (HCC) Intro kit, 10 pods, use one pod every 3 days 1 Kit 2 Insulin Syringe-Needle U-100 (INSULIN SYRINGE 1CC/31GX5/16) 31G X 5/16 1 ML MiscIndications:Typ e 1 diabetes mellitus without complication (HCC) 1 Each by SEE ADMIN INSTRUCTIONS route five times a day. Use to administer insulin up to 5 times a day 200 Each 1 2 Continuous Blood Gluc Senior Electrical Design Engineer (Dexcom G6 Senior Electrical Design Engineer) Device by Does not apply route. 9 Microlet Lancets Misc by Does not apply route. 9 Insulin Pen Needle 29G X 5MM MiscIndications:Typ e 1 diabetes mellitus without complication (HCC) 1 Units by Does not apply route six times a day. 200 Each 11 1 documented as of this encounter Discharge Disposition Disposition Code Departure Means Destination Comment s Home and/or Self Jail documented in this encounter Progress Notes * Nikia Braga RN - 11/26/2024 12:54 PM CST Nurse Discharge Note Situation Dahiana will be discharged today. Background Dahiana is discharged from [facility] at 12:54 PM. Assessment Discharge instructions were reviewed with patient, mother, and father. Medication(s) reviewed with patient, mother, and father and electronically sent to none. IV removed. Education regarding glucose management and endocrinology follow up reviewed and patient verbalizesunderstanding of information. Patient stable at time of discharge. Recommendation Patient is discharged to home via family. ACKER * Ameena Sr RN - 11/25/2024 7:45 PM CST Virtual admission completed. The following documentation was completed by the virtual RN: Allergy/Latex Screen History Menses/ Status Retail Pharmacy Implanted device/hardware SUPERVISOR ASSEMBLY Med List Healthcare Agent Patient Rights Nutrition Screen Interpretation Service ADL/Therapy Psychosocial Safety Tobacco Screen Educational needs assessment The following topics were discussed with patient visitor guidelines, care team assigned to patient,patient and family concerns. Plan of Care and education added to patient chart. Follow-up needed: Virtual admission completed with Dahiana, in the presence of her parents. Dahiana liveswith her partner of 10 years in their own home. She is IND with ADLs and has no home services. [place] a Dexcom 6 on her L ABD. She reports 10 years of ETOH sobriety but relapsed about 4 months ago,now drinking 16 drinks/week. She denies pain. Denies falls. Fall Risk = 7. Please apply allergy neftaly. Handoff given to primary nurse, MELISA Daniels via Secure Chat. Ameena Sr RN ACKER ACKER * Frances Longoria RN - 11/25/2024 6:27 PM CST Nursing Admission Note Situation Dahiana Morales is a(n) 39 year old is admitted from [facility] to room [facility] via stretcher at 6:27 PM. She is accompanied by none. Background Dahiana is admitted with DKA. Assessment IV is placed in the right antecubital area and is currently infusing none at a rate of 0ml/hr. Patient's abd pain is achey and would rate it 7/10, with vital signs of BP: 117/63, Temp: 37.4 ??C (99.4 ??F) Oral, Pulse: 114, Resp: 18, SpO2: 98 % Patient status is stable with the patient being active, alert. Skin is: Intact. Recommendations The patient is oriented to the following BR/ER light , bed controls , telephone , bathroom , visiting hours , overnight stay , and call light . Please see nursing admission assessment for more details. Frances Longoria RN 11/25/2024 6:27 PM ACKER documented in this encounter H&P Notes * John Archuleta MD - 11/25/2024 6:31 PM CST Images from the original note were not included. ADMISSION HISTORY AND PHYSICAL [facility] Medicine Service Dahiana Morales [id number] [facility] [id number] 39 year old female Admission Date/ Time: 11/25/2024 6:25 PM Primary Care Provider: Baron Collado CNP Subjective Chief Complaint: high blood sugars, nausea and vomiting HPI: Dahiana Morales is a(n) 39 year old with type 1 diabetes mellitus on an insulin pump Yesterday she started noticing her blood sugars were getting higher so she was dosing herself extrainsulin. She admitted to having 4 alcoholic beverages yesterday and thought maybe she had perhaps sarah slight cold but no shortness of breath or fevers. Was until this morning that she realized that her cannula was out of her insulin pump and she was not. She has had nausea and vomiting since this morning and aching all over. She was seen at outside ER found to have DKA. Hyperglycemia, elevated anion gap metabolic acidosis,elevated beta-hydroxybutyrate. She received IV fluids and IV insulin was transferred here She still feels a bit nauseated now but a bit better than when she came in. She has no shortness ofbreath. She did did have a low-grade fever here. No cough. She has little bit of a headache and neck pain and shoulder aching which she attributes with previous DKA. No dysuria. She has been eating and voiding normally prior to today. No diarrhea. No rash. She reports a negative test at outside hospital. Does not smoke. She had 4 alcoholic beverages yesterday but has otherwise abstained from alcohol for years prior. She has a history of alcohol use. 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 She hikes with her husky dog. She lives in [place]. Her parents arrived here to visit her as well Assessment/Plan DKA Type 1 diabetes mellitus This was caused by her insulin pump cannula accidentally getting dislodged, rather than some other acute illness or infection. Noted is that yesterday she had 4 alcoholic beverages as well. - iv insulin per DKA protocols. Carb correctoin for eating. 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 She requires iv medications - insulin, IVF, close monitoring of lab results - bmp and blood sugars and nursing monitoring. Inpatient hospitalization required. Anticipate 2 nights. DVT Prophylaxis Measures: Paloma VTE risk score <4, VTE prophylaxis not generally indicated Active anticoagulants: Transfer / Discharge plans: n/a Expected Discharge Date: Code Status & Serious Illness Conversations (ACP Navigator): Full Code Family Communications: Primary Emergency Contact: Terry Ly, , Mobile Additional History History (edit) Past Medical History: Diagnosis Date Alcohol abuse 04/22/2019 Anxiety Brain fog Breast mass Breast mass 02/11/2023 Calculus of gallbladder Elevated aspartate aminotransferase level History of blood transfusion 1988 2 units History of pertussis 04/22/2019 HUS (hemolytic uremic syndrome), 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 Overview: 2010, from hypoglycemia Type 1 diabetes mellitus (HCC) 04/22/2019 Past Surgical History: Procedure Laterality Date BREAST LUMPECTOMY Left 03/27/2023 Procedure: Excision of left breast mass; Surgeon: Cm García MD; Location: -[facility] OR BREAST LUMPECTOMY Right 07/08/2024 Procedure: Right breast excisional biopsy; Surgeon: Cm García MD; Location: [facility] OR HAND SURGERY 2016 fracture left hand, has hardware UPPER GASTROINTESTINAL ENDOSCOPY N/A 09/20/2022 Procedure: ESOPHAGOGASTRODUODENOSCOPY; Surgeon: Oleg Morris MD; Location: -[facility] ENDOSCOPY Family History Problem Relation Name Age of Onset No Known Problems Mother No Known Problems Father Anxiety Sister RV [employer] TW Colon Cancer Maternal Uncle GI Disease Maternal Grandmother Cardiovascular Disease Other RV [employer] TW - Relation: Grandmother, Problem: Family history of cardiac disorder Cardiovascular Disease Other RV [employer] TW - Relation: Grandparent, Problem: Family history of cardiac disorder Family history reviewed as noted above Social History Socioeconomic History Marital status: Single Tobacco Use Smoking status: Former Current packs/day: 0.00 Average packs/day: 1 pack/day for 13.0 years (13.0 ttl pk-yrs) Types: Cigarettes Start date: 06/03/2001 Quit date: 06/03/2014 Years since quittin.4 Smokeless tobacco: Never Tobacco comments: Quit 7 years ago Vaping Use Vaping status: Never Used Substance and Sexual Activity Alcohol use: Not Currently Comment: 08/31/2013 Drug use: Never Sexual activity: Defer Social History Narrative 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 Taking? B-D ULTRAFINE III SHORT PEN 31G X 8 MM device No No Sig: USE 1 EACH EVERY DAY FOR INSULIN ADMINISTRATION Continuous Blood Gluc Senior Electrical Design Engineer (Dexcom G6 Senior Electrical Design Engineer) Device Yes No Sig: by Does not apply route. Continuous Glucose Sensor (Dexcom G6 Sensor) Misc No No Sig: Inject 1 Each under the skin every ten days. Use to check blood sugars daily per layout inspector's recommendation. Continuous Glucose Transmitter (Dexcom G6 Transmitter) Misc No No Si EACH BY ROUTE EVERY 3 MONTHS. USE TO CHECK BLOOD SUGARS DAILY PER SKEINS YARN EXAMINER'S RECOMMENDATION Glucagon (Baqsimi Two Pack) 3 MG/DOSE Powder No No Sig: Instill 3 mg nasally as needed (severe hypoglycemia / unresponsiveness). Insulin Disposable Pump (Omnipod 5 G6 Intro, Gen 5,) Kit No No Sig: Intro kit, 10 pods, use one pod every 3 days Insulin Disposable Pump (Omnipod 5 G6 Pods, Gen 5,) Misc No No Si Units SEE ADMIN INSTR for Other (DM1). Change pod every 48-72 hours Insulin Pen Needle 29G X 5MM Misc No No Si Units by Does not apply route six times a day. Insulin Syringe-Needle U-100 (INSULIN SYRINGE 1CC/31GX5/16) 31G X 5/16 1 ML Misc No No Si Each by SEE ADMIN INSTRUCTIONS route five times a day. Use to administer insulin up to 5 times a day Microlet Lancets Misc Yes No Sig: by Does not apply route. clindamycin (Cleocin T) 1 % solution No No Sig: APPLY TOPICALLY TO THE AFFECTED AREA TWICE DAILY escitalopram (Lexapro) 10 MG tablet No No Sig: Take 1 Tablet by mouth one time a day. famotidine (Pepcid) 20 MG tablet No No Sig: Take 1 Tablet by mouth one time a day as needed for Heartburn. Goal: 2 times a week. Administer 10 to 60 minutes before eating food or drinking beverages known to cause heartburn glucose blood test (Contour Next Test) No No Sig: USE TO CHECK BLOOD SUGAR UP TO 6 TIMES DAILY insulin aspart (NovoLOG) 100 UNIT/ML vial injection No No Sig: ADMINISTER UP TO 60 UNITS VIA INSULIN PUMP DAILY insulin aspart FlexPen (NovoLOG) 100 UNIT/ML pen injection No No Sig: INJECT UP TO 45 UNITS EVERY DAY NEEDED FOR EMERGENCY PUMP BACK UP PLAN insulin glargine (Lantus SoloStar) 100 UNIT/ML pen injection No No Sig: Up to 45 units daily metoclopramide (Reglan) 10 MG tablet No No Sig: Take 1 Tablet by mouth four times a day as needed for Nausea. ondansetron (Zofran ODT) 4 MG disintegrating tablet No No Sig: DISSOLVE 1 TABLET ON THE TONGUE EVERY 8 HOURS NEEDED FOR NAUSEA traZODone (Desyrel) 50 MG tablet No No Sig: Take 1-2 Tablets by mouth at bedtime. Facility-Administered Medications: None Allergies/Sensitivities: Allergies Allergen Reactions Justicia Adhatoda ([place] Nut Tree) [Justicia Adhatoda] Anaphylaxis All tree nuts Amoxicillin RASH Penicillins RASH Sulfa Drugs RASH Objective Vitals T: 37.4 ??C (99.4 ??F) BP: 117/63 HR: 114 RR: 18 SpO2: 98 % Weights:66 kg (145 lb 8.1 oz) BMI: 23.53 Admit Wt: 66 kg (145 lb 8.1 oz) (Graphs) Chart Review ICU Labs Micro Rad AntiCoag Mar(Hx) Glu / DM I/O Graph I/O (BM) Pain Blood Home Meds PDMP Lab/Path Telemetry: All lines/tubes etc other than PIV's: Physical Exam Awake alert pleasant no acute distress HEENT sclera icteric and conjunctive clear Extract movements intact Neck supple adenopathy Heart regular without murmurs rubs or gallops Lungs clear throughout. No wheeze nonlabored respiration Abdomen soft. She had some mild tenderness. No rebound or guarding Extremities without cyanosis clubbing or edema. Skin without rash or petechiae on exposed arms legs or torso Diagnostics: No results found for this or any previous visit (from the past 24 hours). John Archuleta MD ACKER documented in this encounter Consult Notes * Luiza Benton RD - 11/26/2024 1:02 PM CSTAssociated Order(s): IP CONSULT TO NUTRITION SERVICES Medical Nutrition Therapy Education Note Received consult for DM diet education. Visited with Dahiana at [facility] today. Dahiana is hoping to meet with an outpt dietitian after discharge. She had an appointment with an RD this upcoming Friday, but with her hospital admit she needs to reschedule. She feels that she has a good grasp on carb counting, though she would like to learn more about bolus insulin and wt management. Added Diabetes Food Hub resources to AVS. No follow up planned, available for further diet review questions as needed. (5) ACKER * Nonnemacher, Ralph, RN - 11/26/2024 12:42 PM CSTAssociated Order(s): IP CONSULT TO L D RN/NURSE Reason for Consult: Insulin pump eval Patient is admitted with Type 1. Last A1c Hemoglobin A1c Date Value Ref Range Status 11/26/2024 9.0 (H) 4.0 - 5.6 % Final Assessment: Dahiana follows with endocrinology at [facility]. Her cannula was kinked so she was not receiving insulin; additionally, she was ill prior to admission. She has all her supplies with to restarther pump and did not need any assistance with this. She did need her PDM recharged which was done. Obtained pump settings. She is working on setting up a follow up with her wind energy systems installer. Insulin Pump Settings: BASAL: 0000: 0.9 24 Hour Total Basal: 21.6 units BOLUS: CARB RATIO: 0000: 1:12 SENSITIVITY FACTOR: 0000: 50 BG TARGET: 0000: 130 mg/dl ACTIVE INSULIN TIME: 4 hours. Plan of Care discussed with: Carmina Boykin PA-C Thank you for your referral Ralph Rodriguez RN ACKER * Carmina Boykin PA-C - 11/26/2024 11:02 AM CSTAssociated Order(s): IP CONSULT TO DIABETES Encounter date: 11/26/24 by Carmina Boykin PA-C CONSULT Reason for consult: DKA, make sure insulin pump is working/restart before discharge. Referring Provider: Dr. Ahuja, hospitalist. History of Present Illness: Dahiana is a most pleasant 39 year old white female with type 1 DM for > 10 years and expresses burnout. PMHx is also significant for EDIL , history of alcohol abuse with recent alcohol intake,and of note she mentioned during our visit some withholding of insulin boluses due to fear of weight gainthough denies eating disorder. (We didn't go deeply into that however). She ended up in DKA after a pod canula got kinked and she didn't realize she was getting minimal if any insulin overnight whilesleeping; woke up with typical symptoms of DKA so presented to ER. She typically [facility] at [facility] in [place], recent notes reviewed prior to the consult today. She notes a recent move to [place] but has kept her care in the [facility] for now due to ability to do video mostly. She has all of her supplies and insulin at home, needs no refills. She is not concerned about her pump not working, she notes she was having to bolus multiple times over and over before bed, so in hind sight realizes she shouldn't have went to bed with it being high for no reason. She is feeling really well and ready to go home if possible. Patient denies chest pain, SOB, nausea, vomiting, abdominal pain, polyuria or polydipsia We are unable to download due to lack of knowledge or her password/username. Ralph has met with her and looked at the PDM which seems to be working fine. She has no other c/o today regarding her DM1. She remains on insulin drip and dextrose at this time. Sugars are nicely controlled with minimal flux to drip, just simply increases post eating as is expected. 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 Overview: 2010, from hypoglycemia Type 1 diabetes mellitus (HCC) 04/22/2019 Past Surgical History: Past Surgical History: Procedure Laterality Date BREAST LUMPECTOMY Left 03/27/2023 Procedure: Excision of left breast mass; Surgeon: Cm García MD; Location: -[facility] OR BREAST LUMPECTOMY Right 07/08/2024 Procedure: Right breast excisional biopsy; Surgeon: Cm García MD; Location: -[facility] OR HAND SURGERY 2015 fracture left hand, has hardware UPPER GASTROINTESTINAL ENDOSCOPY N/A 09/20/2022 Procedure: ESOPHAGOGASTRODUODENOSCOPY; Surgeon: Oleg Morris MD; Location: [facility] ENDOSCOPY Medications: Current Facility-Administered Medications Medication Dose Route Frequency Provider Last Rate Last Admin escitalopram (Lexapro) tablet 10 mg 10 mg Oral 1X DAILY John Archuleta MD 10 mg at 11/26/24 0837 famotidine (Pepcid) tablet 20 mg 20 mg Oral 1X DAILY PRN John Archuleta MD sodium chloride 0.9% IV FLUSH (NS) SYRINGE 3 mL 3 mL IV Flush EVERY 8 HRS John Archuleta MD 3 mL at 11/26/24 0545 sodium chloride 0.9% IV FLUSH (NS) SYRINGE 3 mL 3 mL IV Flush PRN John Archuleta MD sodium chloride 0.9% IV LINE FLUSH (NS) BAG 30 mL 30 mL IV Flush SEE ADMIN INSTR John Archuleta MD acetaminophen (TYLENOL) tablet 650 mg 650 mg Oral EVERY 4 HRS PRN John Archuleta MD ondansetron (Zofran) injection 4 mg 4 mg IV Push EVERY 6 HRS PRN John Archuleta MD 4 mg at 11/25/24 1849 Or ondansetron (Zofran ODT) disintegrating tablet 4 mg 4 mg Oral EVERY 6 HRS PRN John Archuleta MD dextrose 5% and sodium chloride 0.45% with potassium chloride 20 mEq in 1000 mL infusion Intravenous Continuous John Archuleta MD 150 mL/hr at 11/26/24 0703 New Bag at 11/26/24 0703 insulin regular 1 unit/mL in sodium chloride 0.9% infusion 0-30 Units/hr Intravenous Titrated John Archuleta MD 2.5 mL/hr at 11/26/24 1129 2.5 Units/hr at 11/26/24 1129 sodium chloride 0.45 % 1,000 mL with potassium chloride 20 mEq infusion Intravenous Continuous John Archuleta MD Stopped at 11/26/24 0045 traZODone (Desyrel) tablet 50 mg 50 mg Oral BEDTIME John Archuleta MD 50 mg at 11/25/24 2215 glucose (Glutose) 40 % gel 37.5-112.5 g 37.5-112.5 g Oral PRN John Archuleta MD dextrose (D50) 50 % injection 12.5-25 g 12.5-25 g IV Push PRN John Archuleta MD glucagon (diagnostic) (Glucagen) injection 1 mg 1 mg Intramuscular PRN John Archuleta MD insulin aspart (NovoLOG) injection (CARB DOSE) 1-13 Units 1:15 Subcutaneous CARB DOSE; WITH MEALS AND SNACKS John Archuleta MD 1 Units at 11/26/24 1127 prochlorperazine (COMPAZINE) injection 5 mg 5 mg IV Push EVERY 6 HRS PRN John Archuleta MD 5 mg at 11/25/24 1914 Allergies: Allergies Allergen Reactions Justicia Adhatoda ([place] Nut Tree) [Justicia Adhatoda] Anaphylaxis All tree nuts Amoxicillin RASH Penicillins RASH Sulfa Drugs RASH Family History: Family History Problem Relation Name Age of Onset No Known Problems Mother No Known Problems Father Anxiety Sister RV [employer] TW Colon Cancer Maternal Uncle GI Disease Maternal Grandmother Cardiovascular Disease Other RV [employer] TW - Relation: Grandmother, Problem: Family history of cardiac disorder Cardiovascular Disease Other RV [employer] TW - Relation: Grandparent, Problem: Family history of cardiac disorder Social History: Social History Socioeconomic History Marital status: Single Tobacco Use Smoking status: Former Current packs/day: 0.00 Average packs/day: 1 pack/day for 13.0 years (13.0 ttl pk-yrs) Types: Cigarettes Start date: 06/03/2001 Quit date: 06/03/2014 Years since quittin.4 Smokeless tobacco: Never Tobacco comments: Quit 7 years ago Vaping Use Vaping status: Never Used Substance and Sexual Activity Alcohol use: Yes Alcohol/week: 16.0 standard drinks of alcohol Types: 16 Shots of liquor per week Comment: sober for 10 years, relapsed 4 months ago Drug use: Never Sexual activity: Defer Social History Narrative 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[employer]; 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 Marital Status: Single, boyfriend No alcohol use Social Drivers of Health Food Insecurity: No Food Insecurity (11/25/2024) Hunger Vital Sign Worried About Running Out of Food in the Last Year: Never true Ran Out of Food in the Last Year: Never true Transportation Needs: No Transportation Needs (11/25/2024) PRAPARE - Transportation Lack of Transportation (Medical): No Lack of Transportation (Non-Medical): No Intimate Partner Violence: Not At Risk (11/25/2024) EH IP Custom IPV Intimate Partner Violence: No Housing Stability: Low Risk (11/25/2024) Housing Stability Vital Sign Unable to Pay for Housing in the Last Year: No Number of Times Moved in the Last Year: 0 Homeless in the Last Year: No Review of Systems: See HPI. Exam: Vitals: 11/26/24 0216 11/26/24 0422 11/26/24 0424 11/26/24 0841 BP: 98/60 108/64 113/72 BP Location: Right arm Right arm Right arm BP Patient Position: Supine Supine Semi-Fowlers Pulse: 92 98 Resp: 17 16 Temp: 36.6 ??C (97.9 ??F) TempSrc: Oral SpO2: 99% Weight: 66 kg (145 lb 8.1 oz) Height: General: Well developed well nourished white female in no acute distress. Looks stated age. Sittingcomfortably in hospital bed. Dexcom on L abdomen, clean and dry. G6. Eyes: Sclerae white. Vision grossly normal. EOMI intact. Cor: Normal sinus rhythm without murmurs, rubs or gallops. Pulmo: Respirations non-labored, rate normal. Clear to auscultation without adventitious breath sounds. Abdomen: Normal active bowel sounds in all four quadrants. Non-tender. Extremities: No tremors of the UEs. No peripheral edema or ulceration of the lower extremities. Injection sites are without signs of infection and lipohypertrophy. Skin: warm, dry Neuro: AAOx3. Speech fluent and cohesive. Good comprehension. Psych: Pleasant and cooperative without signs of anxiety or depression. Faisal. Labs: Lab Results Component Value Date HGA1C 9.0 11/26/2024 HGA1C 13.8 05/25/2024 HGA1C 12.8 09/05/2021 HGA1C 10.7 01/03/2021 Lab Results Component Value Date WBC 7.5 06/15/2024 Lab Results Component Value Date HGB 11.5 07/08/2024 Lab Results Component Value Date CREAT 0.98 11/26/2024 Lab Results Component Value Date GFR 76 11/26/2024 Recent Labs 11/25/24200811/25/244 11/25/24 2112 11/25/24 2214 11/25/24 2307 11/25/24 2334 11/26/24 0017 11/26/24 0111 11/26/24 0213 11/26/24 0314 11/26/24 0315 11/26/24 0411 11/26/24 0541 11/26/24 0633 11/26/24 0726 11/26/24 0750 11/26/24 0829 11/26/24 0835 11/26/24 0937 11/26/24 1033 11/26/24 1124 11/26/24 1236 GWB 336* -- 293* 257* 215* -- 183* 167* 160* -- 142* 107* 87 88 79 84 -- 87 123* 163* 172* 166* GLUC -- < > -- -- -- < > -- -- -- < > -- -- -- -- -- -- 85 -- -- -- -- -- < > = values in this interval not displayed. Imaging: None pertinent to diabetes decisions. Assessment: Active Hospital Problems 1Diabetic ketoacidosis without coma associated with type 1 diabetes mellitus (HCC) - resolved. EDIL (generalized anxiety disorder) Type 1 diabetes mellitus (HCC) History of alcohol abuse DKA resolved and obvious reason for it was kinked canula all night --> DKA by morning. -reviewed twice in doubt take it out and never go to bed if concern that she is not getting insulin properly. She is aware. -reviewed importance of carb bolusing unless severely low and also not over bolusing manually as the system is automated and the more she boluses the more erratic things will get. Reviewed general working of a hybrid closed loop system. -she notes she's lacking some boluses due to fear of gaining weight. Corrected in her thinking in that her prebolusing is going to deliver more efficient insulin patterns and will actually likely reduce her TDD as autoinsulin is just in place of her lack of bolus and is much less precise than bolusing. -encouraged consideration of looking deeper into fear of weight gain, potential eating disorder vs other? Typically unless dealt with, will have much difficulty keeping AIC to a place where comorbidities are kept at bay. -also reviewed general expected accuracy of CGMs and when fingerstick would be needed. -reviewed carb input reduction if getting carbs in late, but DO put her cdarbs in on a regular basis- or the Omnipod5 system will not keep her controlled or stable-there will be VERY HIGH variabilityin that case. Pump download is not available for review and patient is ready for discharge. No concerns that pump isn't working at this time. Plan: All above labs reviewed. Per chart review, patient history and AIC the patient does not use her pump properly, fear of brittleness and weight gain so withholds boluses-working with outpatient team to improve over time. I do think once she's ready to discharge she can restart her personal insulin pump, then stop drip so she can discharge: Insulin Pump Settings: NO CHANGES MADE. BASAL: 0000: 0.9 24 Hour Total Basal: 21.6 units BOLUS: CARB RATIO: 0000: 1:12 SENSITIVITY FACTOR: 0000: 50 BG TARGET: 0000: 130 mg/dl ACTIVE INSULIN TIME: 4 hours. Run IV insulin per current protocol until that time. Happy to see her at [facility] anytime if she prefers to transition her care here from [place]. She is okay to discharge from a DM perspective; her case was discussed in person with Dr. Martin well as her RN. - She has all supplies and insulin she needs at home. She has f/u with her usual provider. Discharge orders for her DM1 have already been placed and are accurate. I will copy this note to her wind energy systems installer for review. Thank you for your consult, it was a pleasure to participate in the care of this pleasant & most interesting patient. As always call or page with questions or concerns. ACKER ACKER ACKER documented in this encounter Miscellaneous Notes * Care Plan - Nikia Braga, MELISA - 11/26/2024 12:54 PM CST A&Ox4. Up independently in room. Insulin gtt stopped per order and transitioned to patient's personal insulin pump. On RA BP: 113/72, Temp: 36.6 ??C (97.9 ??F) Oral, Pulse: 98, Resp: 16, SpO2: 99% Goals/Plan for Shift Patient/Family stated goal for shift: Nursing goal for shift: comfort and safety Plan/Interventions to meet goal: Goals per Patient Condition Skin Integrity - Absence of new pressure injury or skin breakdown. See Shawn & Skin Assessmentflowsheet for intervention documentation. ACKER * Care Plan - Elizabeth Carvalho RN - 11/26/2024 3:39 AM CST End of Shift Summary and Plan of Care Switched to step 3 DKA fluids, see MAR. Denied nausea and pain. Insulin drip reduced to 1.5 units/hr, see MAR. Goals/Plan for Shift Patient/Family stated goal for shift: Nursing goal for shift: control blood sugar Plan/Interventions to meet goal: Goals per Patient Condition Skin Integrity - Absence of new pressure injury or skin breakdown. See Shawn & Skin Assessmentflowsheet for intervention documentation. ACKER * Care Plan - Frances Longoria RN - 11/25/2024 10:30 PM CST End of Shift Summary and Plan of Care A&Ox4. Ind in room. RA. Continent BB. Some N/V, IV zofran and compazine given. ABD pain managedby toradol. Insulin gtt at 3 units/hr and IVF @ 150 infusing into L hand PIV. No appetite, did not eat dinner. Pills whole. R AC PIV SL. Tele on, tachycardic in one teens, provider notified. Parents at bedside. BP: 117/63, Temp: 37.4 ??C (99.4 ??F) Oral, Pulse: 114, Resp: 18, SpO2: 98 % Goals/Plan for Shift Patient/Family stated goal for shift: Nursing goal for shift: control blood sugar Plan/Interventions to meet goal: Goals per Patient Condition Skin Integrity - Absence of new pressure injury or skin breakdown. See Shawn & Skin Assessmentflowsheet for intervention documentation. ACKER documented in this encounter Plan of Treatment Upcoming Encounters Date Type Department Care Team (Late st Contact Info) Description 01/07/2025 2:30 PM UNSTACKER Appointment [facility] [address] [place] [address] [address] [place] [address] Rosmery Albright, PRODUCTION SUPERVISOR TRAINEE, BILINGUAL STUDENT TUTOR [address] [facility] [facility] [place], [place] [address] Scheduled Referrals Name Type Priority Associated Diagnoses Orde r Schedule APPT WITH INTERNAL MEDICINE REFERRAL Routine Hospital discharge follow-up Diabetic ketoacidosis without coma associated with type 1 diabetes mellitus (HCC) Ordered: 11/26/2024 documented as of this encounter Procedures Procedure Name Priority Date/Time Associated Diagnosis Comments GLUCOSE, METER Routine 11/26/2024 12:36 PM UNSTACKER GLUCOSE, METER Routine 11/26/2024 11:24 AM UNSTACKER GLUCOSE, METER Routine 11/26/2024 10:33 AM UNSTACKER GLUCOSE, METER Routine 11/26/2024 9:37 AM UNSTACKER GLUCOSE, METER Routine 11/26/2024 8:35 AM UNSTACKER BASIC METABOLIC PANEL Timed 11/26/2024 8:29 AM UNSTACKER HEMOGLOBIN A1C Routine 11/26/2024 8:29 AM UNSTACKER GLUCOSE, METER Routine 11/26/2024 7:50 AM UNSTACKER GLUCOSE, METER Routine 11/26/2024 7:26 AM UNSTACKER GLUCOSE, METER Routine 11/26/2024 6:33 AM UNSTACKER GLUCOSE, METER Routine 11/26/2024 5:41 AM UNSTACKER GLUCOSE, METER Routine 11/26/2024 4:11 AM UNSTACKER GLUCOSE, METER Routine 11/26/2024 3:15 AM UNSTACKER BASIC METABOLIC PANEL Timed 11/26/2024 3:14 AM UNSTACKER MAGNESIUM Routine 11/26/2024 3:14 AM UNSTACKER PHOSPHORUS Routine 11/26/2024 3:14 AM UNSTACKER GLUCOSE, METER Routine 11/26/2024 2:13 AM UNSTACKER GLUCOSE, METER Routine 11/26/2024 1:11 AM UNSTACKER GLUCOSE, METER Routine 11/26/2024 12:17 AM UNSTACKER BASIC METABOLIC PANEL Timed 11/25/2024 11:34 PM UNSTACKER GLUCOSE, METER Routine 11/25/2024 11:07 PM UNSTACKER GLUCOSE, METER Routine 11/25/2024 10:14 PM UNSTACKER GLUCOSE, METER Routine 11/25/2024 9:12 PM UNSTACKER BASIC METABOLIC PANEL Timed 11/25/2024 8:34 PM UNSTACKER GLUCOSE, METER Routine 11/25/2024 8:09 PM UNSTACKER BASIC METABOLIC PANEL STAT 11/25/2024 6:51 PM UNSTACKER PHOSPHORUS Routine 11/25/2024 6:51 PM UNSTACKER documented in this encounter Results * (ABNORMAL) GLUCOSE, METER (11/26/2024 12:36 PM UNSTACKER) Glucose Meter 166(H) 70 - 99 mg/dL 11/26/2024 12:43 PM UNSTACKER [facility] POINT OF [facility] Blood WHOLE BLOOD SPECIMEN / Unknown 11/26/2024 12:36 PM UNSTACKER 11/26/2024 12:43 PM UNSTACKER us Ayden Ahuja DO EC CHEMISTRY ORDERABLES Fi nal Result Performing Organization Address City/[facility]/ZIP Co de Phone Number [facility] POINT OF CARE [address] [place] [address] * (ABNORMAL) GLUCOSE, METER (11/26/2024 11:24 AM UNSTACKER) Glucose Meter 172(H) 70 - 99 mg/dL 11/26/2024 11:30 AM UNSTACKER [facility] Blood WHOLE BLOOD SPECIMEN / Unknown 11/26/2024 11:24 AM UNSTACKER 11/26/2024 11:30 AM UNSTACKER us Ayden Ahuja DO EC CHEMISTRY ORDERABLES Fi nal Result Performing Organization Address City/[facility] Co de Phone Number [facility] POINT OF CARE [address] [place] [address], [facility] * (ABNORMAL) GLUCOSE, METER (11/26/2024 10:33 AM UNSTACKER) Glucose Meter 163(H) 70 - 99 mg/dL 11/26/2024 10:40 AM UNSTACKER [facility] CARE Blood WHOLE BLOOD SPECIMEN / Unknown 11/26/2024 10:33 AM UNSTACKER 11/26/2024 10:40 AM UNSTACKER us Ayden Ahuja DO EC CHEMISTRY ORDERABLES Fi nal Result Performing Organization Address City/[facility]/ZIP Co de Phone Number [facility] POINT OF CARE [address] [place] [address], [facility] * (ABNORMAL) GLUCOSE, METER (11/26/2024 9:37 AM UNSTACKER) Glucose Meter 123(H) 70 - 99 mg/dL 11/26/2024 9:43 AM UNSTACKER [facility] POINT OF CARE Blood WHOLE BLOOD SPECIMEN / Unknown 11/26/2024 9:37 AM UNSTACKER 11/26/2024 9:43 AM UNSTACKER [facility]MI[facility]Y [facility] Fi nal Result Performing Organization Address City/[facility]/ZIP Co de Phone Number [facility] POINT OF CARE [address] * GLUCOSE, METER (11/26/2024 8:35 AM UNSTACKER) Glucose Meter 87 70 - 99 mg/dL 11/26/2024 8:41 AM [facility] POINT OF CARE Blood WHOLE BLOOD SPECIMEN / Unknown 11/26/2024 8:35 AM UNSTACKER 11/26/2024 8:41 AM UNSTACKER Ayden Ahuja DO [employer] CHEMISTRY ORDERABLES Fi nal Result Performing Organization Address [facility] Co de Phone Number [facility] POINT OF CARE [address] * (ABNORMAL) HEMOGLOBIN A1C (11/26/2024 8:29 AM UNSTACKER) Hemoglobin A1c 9.0(H) 4.0 - 5.6 % 11/26/2024 9:12 AM [facility] Estimated Average Glucose 212 mg/dL 11/26/2024 9:12 AM [facility] Blood BLOOD SPECIMEN / Unknown Venipuncture / Unknown 11/26/2024 8:29 AM UNSTACKER 11/26/2024 8:58 AM UNSTACKER Narrative [facility] - 11/26/2024 9:12 AM UNSTACKER HGA1C Reference Ranges >= 6.5 Diabetes* 5.7-6.4 Impaired glucose tolerance <5.7 Normal *In the absence of unequivocal hyperglycemia, results should be confirmed by repeat testing for the diagnosis of diabetes. [place] [employer] 2018 us Ayden Ahuja DO CHEMISTRY ORDERABLES AB N Final Result [facility] [address] [place] [address] * (ABNORMAL) BASIC METABOLIC PANEL (11/26/2024 8:29 AM [facility]) Pathologist [facility] Sodium 134 134 - 143 mEq/L 11/26/2024 9:39 AM [facility] Potassium 3.7 3.4 - 5.1 mEq/L 11/26/2024 9:39 AM [facility] Chloride 108 99 - 110 mEq/L 11/26/2024 9:39 AM [facility] Carbon Dioxide 20 19 - 29 mEq/L 11/26/2024 9:39 AM [facility] Anion Gap 6.0 3.0 - 15.0 mEq/L 11/26/2024 9:39 AM [facility] Blood Urea Nitrogen 24 5 - 24 mg/dL 11/26/2024 9:39 AM [facility] Creatinine 0.98 0.40 - 1.00 mg/dL 11/26/2024 9:39 AM [facility] Glomerular Filtration Rate 76 >60 mL/min/1. 73 m*2 11/26/2024 9:39 AM [facility] Comment:Risk of cardiovascul ar disease increases when GFR is abnormal; persistently reduced GFR values are a specific indication of CKD. This calculation uses CKD- EPI 2020 equation without adjustment for race; it has not been validated in women. Calcium 7.7(L) 8.4 - 10.5 mg/dL 11/26/2024 9:39 AM [facility] Glucose 85 70 - 99 mg/dL 11/26/2024 9:39 AM [facility] Blood BLOOD SPECIMEN / Unknown Venipuncture / Unknown 11/26/2024 8:29 AM UNSTACKER 11/26/2024 8:58 AM [facility] - 11/26/2024 9:39 AM UNSTACKER Current ADA criteria for Glucose: Normal: 70-99 mg/dL Impaired Fasting Glucose: 100-125 mg/dL Diabetes Mellitus: at or above 126 mg/dL The diagnosis of diabetes must be confirmed on a subsequent day by measuring Fasting Plasma Glucose, 2-hr PG or random plasma glucose (if symptoms are present). John Archuleta MD EC CHEMISTRY ORDERABLES Fin al Result Performing Organization Address City/[facility] Co de Phone Number [facility] [address] [place] [address] * GLUCOSE, METER (11/26/2024 7:50 AM UNSTACKER) Glucose Meter 84 70 - 99 mg/dL 11/26/2024 7:57 AM UNSTACKER [facility] POINT OF CARE Blood WHOLE BLOOD SPECIMEN / Unknown 11/26/2024 7:50 AM UNSTACKER 11/26/2024 7:57 AM UNSTACKER Ayden Ahuja DO EC CHEMISTRY ORDERABLES Fi nal Result Performing Organization Address [facility] de Phone Number [facility] POINT OF CARE [address] [place] [address] * GLUCOSE, METER (11/26/2024 7:26 AM UNSTACKER) Glucose Meter 79 70 - 99 mg/dL 11/26/2024 7:33 AM UNSTACKER [facility] POINT OF CARE Blood WHOLE BLOOD SPECIMEN / Unknown 11/26/2024 7:26 AM UNSTACKER 11/26/2024 7:33 AM UNSTACKER John Archuleta MD EC CHEMISTRY ORDERABLES Fin al Result Performing Organization Address [facility] Co de Phone Number [facility] POINT OF CARE [address] [place] [address] * GLUCOSE, METER (11/26/2024 6:33 AM UNSTACKER) Glucose Meter 88 70 - 99 mg/dL 11/26/2024 6:39 AM UNSTACKER [facility] POINT [facility] CARE Blood WHOLE BLOOD SPECIMEN / Unknown 11/26/2024 6:33 AM UNSTACKER 11/26/2024 6:39 AM UNSTACKER John Archuleta MD EC CHEMISTRY ORDERABLES Fin al Result Performing Organization Address City/[facility]/ZIP Co de Phone Number [facility] POINT OF CARE [address] [place] [address] * GLUCOSE, METER (11/26/2024 5:41 AM UNSTACKER) Glucose Meter 87 70 - 99 mg/dL 11/26/2024 5:47 AM UNSTACKER [facility] Blood WHOLE BLOOD SPECIMEN / Unknown 11/26/2024 5:41 AM UNSTACKER 11/26/2024 5:47 AM UNSTACKER John Archuleta MD EC CHEMISTRY ORDERABLES Fin al Result Performing Organization Address [facility] Co de Phone Number [facility] POINT OF CARE [address] * (ABNORMAL) GLUCOSE, METER (11/26/2024 4:11 AM UNSTACKER) Glucose Meter 107(H) 70 - 99 mg/dL 11/26/2024 4:18 AM UNSTACKER [facility] Blood WHOLE BLOOD SPECIMEN / Unknown 11/26/2024 4:11 AM UNSTACKER 11/26/2024 4:18 AM UNSTACKER John Archuleta MD EC CHEMISTRY ORDERABLES Fin al Result Performing Organization Address City/[facility] Co de Phone Number [facility] POINT OF CARE [address] [place] [address] * (ABNORMAL) GLUCOSE, METER (11/26/2024 3:15 AM UNSTACKER) Glucose Meter 142(H) 70 - 99 mg/dL 11/26/2024 3:21 AM UNSTACKER [facility] POINT OF CARE Blood WHOLE BLOOD SPECIMEN / Unknown 11/26/2024 3:15 AM UNSTACKER 11/26/2024 3:21 AM UNSTACKER John Archuleta MD EC CHEMISTRY ORDERABLES Fin al Result Performing Organization Address [facility] Co de Phone Number [facility] POINT OF CARE [address] [place] [address] * MAGNESIUM (11/26/2024 3:14 AM UNSTACKER) Magnesium 1.8 1.8 - 2.7 mg/dL 11/26/2024 3:46 AM [facility] Blood BLOOD SPECIMEN / Unknown Venipuncture / Unknown 11/26/2024 3:14 AM UNSTACKER 11/26/2024 3:23 AM UNSTACKER John Archuleta MD EC CHEMISTRY ORDERABLES Fin al Result Performing Organization Address [facility] de Phone Number [facility] [address] * (ABNORMAL) BASIC METABOLIC PANEL (11/26/2024 3:14 AM UNSTACKER) Sodium 134 134 - 143 mEq/L 11/26/2024 3:46 AM [facility] Potassium 3.8 3.4 - 5.1 mEq/L 11/26/2024 3:46 AM [facility] Chloride 107 99 - 110 mEq/L 11/26/2024 3:46 AM [facility] Carbon Dioxide 19 19 - 29 mEq/L 11/26/2024 3:46 AM [facility] Anion Gap 8.0 3.0 - 15.0 mEq/L 11/26/2024 3:46 AM [facility] Blood Urea Nitrogen 29(H) 5 - 24 mg/dL 11/26/2024 3:46 AM [facility] Creatinine 1.17(H) 0.40 - 1.00 mg/dL 11/26/2024 3:46 AM [facility] Glomerular Filtration Rate 61 >60 mL/min/1. 73 m*2 11/26/2024 3:46 AM [facility] Comment:Risk of cardiovascul ar disease increases when GFR is abnormal; persistently reduced GFR values are a specific indication of CKD. This calculation uses CKD- EPI 2020 equation without adjustment for race; it has not been validated in women. Calcium 7.6(L) 8.4 - 10.5 mg/dL 11/26/2024 3:46 AM UNSTACKER [facility] Glucose 131(H) 70 - 99 mg/dL 11/26/2024 3:46 AM [facility] Blood BLOOD SPECIMEN / Unknown Venipuncture / Unknown 11/26/2024 3:14 AM UNSTACKER 11/26/2024 3:23 AM UNSTACKER Narrative [facility] - 11/26/2024 3:46 AM UNSTACKER Current ADA criteria for Glucose: Normal: 70-99 mg/dL Impaired Fasting Glucose: 100-125 mg/dL Diabetes Mellitus: at or above 126 mg/dL The diagnosis of diabetes must be confirmed on a subsequent day by measuring Fasting Plasma Glucose, 2-hr PG or random plasma glucose (if symptoms are present). John Archuleta MD EC CHEMISTRY ORDERABLES Fin al Result Performing Organization Address [facility] de Phone Number [facility] [address] * (ABNORMAL) PHOSPHORUS (11/26/2024 3:14 AM UNSTACKER) Phosphorus 1.8(L) 2.5 - 4.6 mg/dL 11/26/2024 3:46 AM [facility] Blood BLOOD SPECIMEN / Unknown Venipuncture / Unknown 11/26/2024 3:14 AM UNSTACKER 11/26/2024 3:23 AM UNSTACKER John Archuleta MD EC CHEMISTRY ORDERABLES Fin al Result Performing Organization Address [facility] de Phone Number [facility] [address] [place] [address] * (ABNORMAL) GLUCOSE, METER (11/26/2024 2:13 AM UNSTACKER) Glucose Meter 160(H) 70 - 99 mg/dL 11/26/2024 2:20 AM UNSTACKER [facility] POINT [facility] CARE Blood WHOLE BLOOD SPECIMEN / Unknown 11/26/2024 2:13 AM UNSTACKER 11/26/2024 2:20 AM UNSTACKER John Archuleta MD EC CHEMISTRY ORDERABLES Fin al Result Performing Organization Address City/[facility]/ZIP Co de Phone Number [facility] POINT [facility] CARE [address] [place] [address] * (ABNORMAL) GLUCOSE, METER (11/26/2024 1:11 AM UNSTACKER) Glucose Meter 167(H) 70 - 99 mg/dL 11/26/2024 1:18 AM UNSTACKER [facility] Blood WHOLE BLOOD SPECIMEN / Unknown 11/26/2024 1:11 AM UNSTACKER 11/26/2024 1:18 AM UNSTACKER John Archuleta MD EC CHEMISTRY ORDERABLES Fin al Result Performing Organization Address City/[facility]/ZIP Co de Phone Number [facility] POINT OF CARE [address] [place] [address] * (ABNORMAL) GLUCOSE, METER (11/26/2024 12:17 AM UNSTACKER) Glucose Meter 183(H) 70 - 99 mg/dL 11/26/2024 12:24 AM UNSTACKER [facility] POINT OF CARE Blood WHOLE BLOOD SPECIMEN / Unknown 11/26/2024 12:17 AM UNSTACKER 11/26/2024 12:24 AM UNSTACKER John Archuleta MD EC CHEMISTRY ORDERABLES Fin al Result Performing Organization Address City/[facility]/ZIP Co de Phone Number [facility] POINT [facility] CARE [address] [place] [address] * (ABNORMAL) BASIC METABOLIC PANEL (11/25/2024 11:34 PM UNSTACKER) Sodium 133(L) 134 - 143 mEq/L 11/26/2024 12:06 AM [facility] Potassium 4.0 3.4 - 5.1 mEq/L 11/26/2024 12:06 AM [facility] Chloride 106 99 - 110 mEq/L 11/26/2024 12:06 AM [facility] Carbon Dioxide 18(L) 19 - 29 mEq/L 11/26/2024 12:06 AM [facility] Anion Gap 9.0 3.0 - 15.0 mEq/L 11/26/2024 12:06 AM [facility] Blood Urea Nitrogen 29(H) 5 - 24 mg/dL 11/26/2024 12:06 AM [facility] Creatinine 1.20(H) 0.40 - 1.00 mg/dL 11/26/2024 12:06 AM [facility] Glomerular Filtration Rate 59(L) >60 mL/min/1. 73 m*2 11/26/2024 12:06 AM [facility] Comment:Risk of cardiovascul ar disease increases when GFR is abnormal; persistently reduced GFR values are a specific indication of CKD. This calculation uses CKD- EPI 2020 equation without adjustment for race; it has not been validated in women. Calcium 7.8(L) 8.4 - 10.5 mg/dL 11/26/2024 12:06 AM [facility] Glucose 219(H) 70 - 99 mg/dL 11/26/2024 12:06 AM [facility] Blood BLOOD SPECIMEN / Unknown Venipuncture / Unknown 11/25/2024 11:34 PM UNSTACKER 11/25/2024 11:44 PM [facility] - 11/26/2024 12:06 AM [facility] Current ADA criteria for Glucose: Normal: 70-99 mg/dL Impaired Fasting Glucose: 100-125 mg/dL Diabetes Mellitus: at or above 126 mg/dL The diagnosis of diabetes must be confirmed on a subsequent day by measuring Fasting Plasma Glucose, 2-hr PG or random plasma glucose (if symptoms are present). John Archuleta MD EC CHEMISTRY ORDERABLES Fin al Result Performing Organization Address City/[facility]/ZIP Co de Phone Number [facility] [address] [place] [address] * (ABNORMAL) GLUCOSE, METER (11/25/2024 11:07 PM UNSTACKER) Glucose Meter 215(H) 70 - 99 mg/dL 11/25/2024 11:13 PM UNSTACKER [facility] POINT [facility] CARE Blood WHOLE BLOOD SPECIMEN / Unknown 11/25/2024 11:07 PM UNSTACKER 11/25/2024 11:13 PM UNSTACKER John Archuleta MD EC CHEMISTRY ORDERABLES Fin al Result Performing Organization Address [facility] Co de Phone Number [facility] POINT [facility] CARE [address] [place] [address] * (ABNORMAL) GLUCOSE, METER (11/25/2024 10:14 PM UNSTACKER) Glucose Meter 257(H) 70 - 99 mg/dL 11/25/2024 10:20 PM UNSTACKER [facility] Blood WHOLE BLOOD SPECIMEN / Unknown 11/25/2024 10:14 PM UNSTACKER 11/25/2024 10:20 PM UNSTACKER John Archuleta MD EC CHEMISTRY ORDERABLES Fin al Result Performing Organization Address [facility] de Phone Number [facility] CARE [address] [place] [address] * (ABNORMAL) GLUCOSE, METER (11/25/2024 9:12 PM UNSTACKER) Glucose Meter 293(H) 70 - 99 mg/dL 11/25/2024 9:18 PM UNSTACKER [facility] PO[facility] CARE Blood WHOLE BLOOD SPECIMEN / Unknown 11/25/2024 9:12 PM UNSTACKER 11/25/2024 9:18 PM UNSTACKER us John Archuleta MD EC CHEMISTRY ORDERABLES Fin al Result [facility] POINT [facility] CARE [address] [place] [address], [facility] * (ABNORMAL) BASIC METABOLIC PANEL (11/25/2024 8:34 PM UNSTACKER) Sodium 133(L) 134 - 143 mEq/L 11/25/2024 9:09 PM [facility] Potassium 4.4 3.4 - 5.1 mEq/L 11/25/2024 9:09 PM [facility] Chloride 103 99 - 110 mEq/L 11/25/2024 9:09 PM [facility] Carbon Dioxide 13(L) 19 - 29 mEq/L 11/25/2024 9:09 PM [facility] Anion Gap 17.0(H) 3.0 - 15.0 mEq/L 11/25/2024 9:09 PM [facility] Blood Urea Nitrogen 26(H) 5 - 24 mg/dL 11/25/2024 9:09 PM [facility] Creatinine 1.20(H) 0.40 - 1.00 mg/dL 11/25/2024 9:09 PM [facility] Glomerular Filtration Rate 59(L) >60 mL/min/1. 73 m*2 11/25/2024 9:09 PM [facility] Comment:Risk of cardiovascul ar disease increases when GFR is abnormal; persistently reduced GFR values are a specific indication of CKD. This calculation uses CKD- EPI 2020 equation without adjustment for race; it has not been validated in women. Calcium 8.0(L) 8.4 - 10.5 mg/dL 11/25/2024 9:09 PM [facility] Glucose 326(H) 70 - 99 mg/dL 11/25/2024 9:09 PM [facility] Blood BLOOD SPECIMEN / Unknown Venipuncture / Unknown 11/25/2024 8:34 PM UNSTACKER 11/25/2024 8:38 PM UNSTACKER Narrative [facility] - 11/25/2024 9:09 PM UNSTACKER Current ADA criteria for Glucose: Normal: 70-99 mg/dL Impaired Fasting Glucose: 100-125 mg/dL Diabetes Mellitus: at or above 126 mg/dL The diagnosis of diabetes must be confirmed on a subsequent day by measuring Fasting Plasma Glucose, 2-hr PG or random plasma glucose (if symptoms are present). Current ADA criteria for Glucose: Normal: 70-99 mg/dL Impaired Fasting Glucose: 100-125 mg/dL Diabetes Mellitus: at or above 126 mg/dL The diagnosis of diabetes must be confirmed on a subsequent day by measuring Fasting Plasma Glucose, 2-hr PG or random plasma glucose (if symptoms are present). Recommended NA correction for Glucose >250: Measured NA + (0.016X(glucose-100)) for the [employer] chemistry analyzers. John Archuleta MD EC CHEMISTRY ORDERABLES Fin al Result Performing Organization Address City/[facility]/ZIP Co de Phone Number [facility] [address] [place] [address] * (ABNORMAL) GLUCOSE, METER (11/25/2024 8:09 PM UNSTACKER) Glucose Meter 336(H) 70 - 99 mg/dL 11/25/2024 8:16 PM UNSTACKER [facility]ARE Blood WHOLE BLOOD SPECIMEN / Unknown 11/25/2024 8:09 PM UNSTACKER 11/25/2024 8:16 PM UNSTACKER John Archuleta MD EC CHEMISTRY ORDERABLES Fin al Result Performing Organization Address City/[facility] Co de Phone Number [facility] PO[facility] CARE [address] [place] [address] * PHOSPHORUS (11/25/2024 6:51 PM UNSTACKER) Phosphorus 2.7 2.5 - 4.6 mg/dL 11/25/2024 7:30 PM UNSTACKER [facility] Blood BLOOD SPECIMEN / Unknown Venipuncture / Unknown 11/25/2024 6:51 PM UNSTACKER 11/25/2024 6:56 PM UNSTACKER us John Archuleta MD EC CHEMISTRY ORDERABLES Fin al Result [facility] [address] [place], [place] [address] * (ABNORMAL) BASIC METABOLIC PANEL (11/25/2024 6:51 PM UNSTACKER) Sodium 133(L) 134 - 143 mEq/L 11/25/2024 7:30 PM [facility] Potassium 4.4 3.4 - 5.1 mEq/L 11/25/2024 7:30 PM [facility] Chloride 102 99 - 110 mEq/L 11/25/2024 7:30 PM [facility] Carbon Dioxide 12(L) 19 - 29 mEq/L 11/25/2024 7:30 PM [facility] Anion Gap 19.0(H) 3.0 - 15.0 mEq/L 11/25/2024 7:30 PM [facility] Blood Urea Nitrogen 26(H) 5 - 24 mg/dL 11/25/2024 7:30 PM [facility] Creatinine 1.19(H) 0.40 - 1.00 mg/dL 11/25/2024 7:30 PM [facility] Glomerular Filtration Rate 60(L) >60 mL/min/1. 73 m*2 11/25/2024 7:30 PM [facility] LABORATORY Comment:Risk of cardiovascul ar disease increases when GFR is abnormal; persistently reduced GFR values are a specific indication of CKD. This calculation uses CKD- EPI 202 equation without adjustment for race; it has not been validated in women. Calcium 8.2(L) 8.4 - 10.5 mg/dL 11/25/2024 7:30 PM [facility] Glucose 303(H) 70 - 99 mg/dL 11/25/2024 7:30 PM [facility] Blood BLOOD SPECIMEN / Unknown Venipuncture / Unknown 11/25/2024 6:51 PM UNSTACKER 11/25/2024 6:56 PM UNSTACKER Narrative [facility] - 11/25/2024 7:30 PM UNSTACKER Current ADA criteria for Glucose: Normal: 70-99 mg/dL Impaired Fasting Glucose: 100-125 mg/dL Diabetes Mellitus: at or above 126 mg/dL The diagnosis of diabetes must be confirmed on a subsequent day by measuring Fasting Plasma Glucose, 2-hr PG or random plasma glucose (if symptoms are present). Current ADA criteria for Glucose: Normal: 70-99 mg/dL Impaired Fasting Glucose: 100-125 mg/dL Diabetes Mellitus: at or above 126 mg/dL The diagnosis of diabetes must be confirmed on a subsequent day by measuring Fasting Plasma Glucose, 2-hr PG or random plasma glucose (if symptoms are present). Recommended NA correction for Glucose >250: Measured NA + (0.016X(glucose-100)) for the [employer] chemistry analyzers. us John Archuleta MD CHEMISTRY ORDERABLES Fin al Result [facility] [address] [place] [address] documented in this encounter Visit Diagnoses Diagnosis Diabetic ketoacidosis without coma associated with type 1 diabetes mellitus (HCC)- Primary Hospital discharge follow-up Other follow-up examination Diabetic ketoacidosis without coma associated with type 1 diabetes mellitus (HCC) EDIL (generalized anxiety disorder) Generalized anxiety disorder History of alcohol abuse Nondependent alcohol abuse, in remission Type 1 diabetes mellitus (HCC) Type I (juvenile type) diabetes mellitus without mention of complication, not stated as uncontrolled documented in this encounter Administered Medications Inactive Administered Medications Medication Order MAR Action Action Date Dose Rate Site dextrose (D50) 50 % injection 12.5-25 g 12.5-25 g, IV Push, NEEDED, Starting on Estrellita 11/25/24 at 1850, Until Fri11/26/24 at 1706, Hypoglycemia dextrose 5% and sodium chloride 0.45% with potassium chloride 20 mEq in 1000 mL infusion Intravenous, at 150 mL/hr, CONTINUOUS, Starting on Fri11/26/24 at 0100, Until Fri11/26/24 at 1238 New Bag 11/26/2024 7:03 AM UNSTACKER 150 mL/hr New Bag 11/26/2024 12:48 AM UNSTACKER 150 mL/hr escitalopram (Lexapro) tablet 10 mg 10 mg, Oral, ONCE DAILY, First dose on Fri11/26/24 at 0800, Until Discontinued Given 11/26/2024 8:37 AM UNSTACKER 10 mg glucagon (diagnostic) (Glucagen) injection 1 mg 1 mg, Intramuscular, NEEDED, Starting on Fri11/25/24 at 1850, Until Fri11/26/24 at 1706, Hypoglycemia glucose (Glutose) 40 % gel 37.5-112.5 g 37.5-112.5 g, Oral, NEEDED, Starting on Fri11/25/24 at 1850, Until Fri11/26/24 at 1706, Hypoglycemia insulin aspart (NovoLOG) injection (CARB DOSE) 1-13 Units 1-13 Units, Subcutaneous, CARB DOSE; WITH MEALS AND SNACKS, First dose on Fri11/25/24 at 1900, Until Discontinued, Carb Ratio - Breakfast (gm/unit): 15, Carb Ratio - Lunch (gm/unit): 15, Carb Ratio - Dinner (gm/unit): 15, Carb Ratio - AM Snack (gm/unit): 15, Carb Ratio - Bedtime Snack (gm/unit): 15 Given 11/26/2024 11:27 AM UNSTACKER 1 Units Given 11/26/2024 9:04 AM UNSTACKER 1 Units insulin regular 1 unit/mL in sodium chloride 0.9% infusion 0-30 Units/hr (0-30 mL/hr), Intravenous, Titrated, Starting on Fri11/25/24 at 1900, Until Fri11/26/24 at 1238, Insulin Infusion Titration: Adult DKA Insulin Infusion Rate/Dose Change 11/26/2024 11:29 AM UNSTACKER 2.5 Units/hr 2.5 mL/hr Rate/Dose Change 11/26/2024 10:36 AM UNSTACKER 2 Units/hr 2 mL/h r Rate/Dose Change 11/26/2024 9:39 AM UNSTACKER 1.5 Units/hr 1.5 m L/hr Rate/Dose Verify 11/26/2024 8:37 AM UNSTACKER 1 Units/hr 1 mL/hr Rate/Dose Change 11/26/2024 7:27 AM UNSTACKER 1 Units/hr 1 mL/hr Rate/Dose Verify 11/26/2024 6:34 AM UNSTACKER 1.5 Units/hr 1.5 m L/hr Rate/Dose Change 11/26/2024 5:42 AM UNSTACKER 1.5 Units/hr 1.5 m L/hr Rate/Dose Change 11/26/2024 4:14 AM UNSTACKER 2 Units/hr 2 mL/hr Rate/Dose Verify 11/26/2024 3:16 AM UNSTACKER 3 Units/hr 3 mL/hr Rate/Dose Verify 11/26/2024 2:15 AM UNSTACKER 3 Units/hr 3 mL/hr Rate/Dose Verify 11/26/2024 1:12 AM UNSTACKER 3 Units/hr 3 mL/hr Rate/Dose Verify 11/26/2024 12:38 AM UNSTACKER 3 Units/hr 3 mL/h r Rate/Dose Verify 11/25/2024 11:08 PM UNSTACKER 3 Units/hr 3 mL/h r Rate/Dose Verify 11/25/2024 10:14 PM UNSTACKER 3 Units/hr 3 mL/h r Rate/Dose Verify 11/25/2024 9:18 PM UNSTACKER 3 Units/hr 3 mL/hr New Bag 11/25/2024 8:07 PM UNSTACKER 3 Units/hr 3 mL/hr ketorolac (TORADOL) injection 15 mg 15 mg, IV Push, ONCE, 1 dose, On Fri11/25/24 at 1930 Given 11/25/2024 7:14 PM UNSTACKER 15 mg ondansetron (Zofran ODT) disintegrating tablet 4 mg 4 mg, Oral, EVERY 6 HOURS NEEDED, Starting on Fri11/25/24 at 1831, Until Fri11/26/24 at 1706, Nausea, Vomiting ondansetron (Zofran) injection 4 mg 4 mg, IV Push, EVERY 6 HOURS NEEDED, Starting on Fri11/25/24 at 1831, Until Fri11/26/24 at 1706, Nausea, Vomiting Given 11/25/2024 6:49 PM UNSTACKER 4 mg prochlorperazine (COMPAZINE) injection 5 mg 5 mg, IV Push, EVERY 6 HOURS NEEDED, Starting on Fri11/25/24 at 1907, Until Fri11/26/24 at 1706, Nausea, Vomiting Given 11/25/2024 7:14 PM UNSTACKER 5 mg sodium chloride 0.45 % 1,000 mL with potassium chloride 20 mEq infusion Intravenous, at 150 mL/hr, CONTINUOUS, Starting on Fri11/25/24 at 1930, Until Fri11/26/24 at 1238 New Bag 11/25/2024 7:21 PM UNSTACKER 150 mL/hr sodium chloride 0.9% IV FLUSH (NS) SYRINGE 3 mL 3 mL, IV Flush, EVERY 8 HOURS, First dose on Fri11/25/24 at 2200, Until Discontinued Given 11/26/2024 5:45 AM UNSTACKER 3 mL traZODone (Desyrel) tablet 50 mg 50 mg, Oral, AT BEDTIME, First dose on Fri11/25/24 at 2200, Until Discontinued Given 11/25/2024 10:15 PM UNSTACKER 50 mg documented in this encounter Active and Recently Administered Medications Times are shown in UNSTACKER. Scheduled Medication Order 11/24/2024 11/25/2024 11/26/2024 escitalopram (Lexapro) tablet 10 mg 10 mg, Oral, ONCE DAILY, First dose on Fri11/26/24 at 0800, Until Discontinued 0837 (Given - Provid er: Nikia Braga RN) insulin aspart (NovoLOG) injection (CARB DOSE) 1-13 Units 1-13 Units, Subcutaneous, CARB DOSE; WITH MEALS AND SNACKS, First dose on Fri11/25/24 at 1900, Until Discontinued, Carb Ratio - Breakfast (gm/unit): 15, Carb Ratio - Lunch (gm/unit): 15, Carb Ratio - Dinner (gm/unit): 15, Carb Ratio - AM Snack (gm/unit): 15, Carb Ratio - Bedtime Snack (gm/unit): 15 192 (Not Given - Provider: Frances Longoria RN - Reason: Order Parameters not met - Comment: didnt eat)2215 (Not Given - Provider: Frances Longoria RN - Reason: Order Parameters not met - Comment: didn't eat) 0904 (Given - Provider: Nikia Braga RN)1127 (Given - Provider: Nikia Braga RN) ketorolac (TORADOL) injection 15 mg (COMPLETED) 15 mg, IV Push, ONCE, 1 dose, On Fri11/25/24 at 1930 1914 (Given - Provider: Frances Longoria, MELISA) sodium chloride 0.9% IV FLUSH (NS) SYRINGE 3 mL 3 mL, IV Flush, EVERY 8 HOURS, First dose on Estrellita 11/25/24 at 2200, Until Discontinued 2105 (Not Given - Provider: Frances Longoria RN - Reason: IV Infusing) 0545 (Given - Provider: Elizabeth Carvalho RN) traZODone (Desyrel) tablet 50 mg 50 mg, Oral, AT BEDTIME, First dose on Estrellita 11/25/24 at 2200, Until Discontinued 2214 (Given - Provider: Frances Longoria RN) Continuous Medication Order 11/24/2024 11/25/2024 11/26/2024 dextrose 5% and sodium chloride 0.45% with potassium chloride 20 mEq in 1000 mL infusion (CANCELED) Intravenous, at 150 mL/hr, CONTINUOUS, Starting on Fri11/26/24 at 0100, Until Fri11/26/24 at 1238 0048 (New Bag - Provider: Elizabeth Carvalho RN)0703 (New Bag - Provider: Elizabeth Carvalho RN)1247 (Stopped - Provider: Nikia Braga RN) insulin regular 1 unit/mL in sodium chloride 0.9% infusion (CANCELED) 0-30 Units/hr (0-30 mL/hr), Intravenous, Titrated, Starting on Fri11/25/24 at 1900, Until Fri11/26/24 at 1238, Insulin Infusion Titration: Adult DKA Insulin Infusion 2006 (New Bag - Provider: Frances Longoria RN - Comment: BG 336)2118 (Rate/Dose Verify - Provider: Frances Longoria RN)2214 (Rate/Dose Verify - Provider: Frances Longoria RN)2308 (Rate/Dose Verify - Provider: Frances Longoria RN)2328 (Handoff - Provider: Frances Longoria RN) 0038 (Rate/Dose Verify - Provider: Elizabeth Carvalho RN)0112 (Rate/Dose Verify - Provider: Elizabeth Carvalho RN)0215 (Rate/Dose Verify - Provider: Elizabeth Carvalho RN)0316 (Rate/Dose Verify - Provider: Elizabeth Carvalho RN)0414 (Rate/Dose Change - Provider: Elizabeth Carvalho RN - Comment: blood glucose 107)0542 (Rate/Dose Change - Provider: Elizabeth Carvalho RN)0634 (Rate/Dose Verify - Provider: Elizabeth Carvalho RN - Comment: blood glucose 88)0727 (Rate/Dose Change - Provider: Elizabeth Carvalho RN)0728 (Handoff - Provider: Elizabeth Carvalho RN)0837 (Rate/Dose Verify - Provider: Nikia Braga RN)0939 (Rate/Dose Change - Provider: Nikia Braga RN)1036 (Rate/Dose Change - Provider: Nikia Braga RN)1129 (Rate/Dose Change - Provider: Nikia Braga, RN)1247 (Stopped - Provider: Nikia Braga RN) sodium chloride 0.45 % 1,000 mL with potassium chloride 20 mEq infusion (CANCELED) Intravenous, at 150 mL/hr, CONTINUOUS, Starting on Estrellita 11/25/24 at 1930, Until Fri11/26/24 at 1238 1921 (New Bag - Provider: Frances Longoria RN) 0045 (Stopped - Provider: Elizabeth Carvalho RN) PRN Medication Order 11/24/2024 11/25/2024 11/26/2024 acetaminophen (TYLENOL) tablet 650 mg 650 mg, Oral, EVERY 4 HOURS NEEDED, Starting on Estrellita 11/25/24 at 1831, Until Fri11/26/24 at 1706, Other, Mild Pain (1-3), Fever, Pain per admin instruction 1857 (Not Given - Provider: Frances Longoria RN - Reason: Patient/Family refused - Comment: nausea) dextrose (D50) 50 % injection 12.5-25 g 12.5-25 g, IV Push, NEEDED, Starting on Estrellita 11/25/24 at 1850, Until Fri11/26/24 at 1706, Hypoglycemia famotidine (Pepcid) tablet 20 mg 20 mg, Oral, ONE TIME DAILY NEEDED, Starting on Estrellita 11/25/24 at 1831, Until Fri11/26/24 at 1706, Heartburn glucagon (diagnostic) (Glucagen) injection 1 mg 1 mg, Intramuscular, NEEDED, Starting on Estrellita 11/25/24 at 1850, Until Fri11/26/24 at 1706, Hypoglycemia glucose (Glutose) 40 % gel 37.5-112.5 g 37.5-112.5 g, Oral, NEEDED, Starting on Estrellita 11/25/24 at 1850, Until Fri11/26/24 at 1706, Hypoglycemia ondansetron (Zofran ODT) disintegrating tablet 4 mg(Linked Group 1) 4 mg, Oral, EVERY 6 HOURS NEEDED, Starting on Estrellita 11/25/24 at 1831, Until Fri11/26/24 at 1706, Nausea, Vomiting 1849 (See Alternative - Provider: Frances Longoria RN)185 (Not Given - Provider: Frances Longoria RN - Reason: Other - Comment: gave IV instead of PO) ondansetron (Zofran) injection 4 mg(Linked Group 1) 4 mg, IV Push, EVERY 6 HOURS NEEDED, Starting on Estrellita 11/25/24 at 1831, Until Fri11/26/24 at 1706, Nausea, Vomiting 1849 (Given - Provider: Roxy Longoria RN)185 (See Alternative - Provider: Frances Longoria RN) prochlorperazine (COMPAZINE) injection 5 mg 5 mg, IV Push, EVERY 6 HOURS NEEDED, Starting on Estrellita 11/25/24 at 1907, Until Fri11/26/24 at 1706, Nausea, Vomiting 1914 (Given - Provider: Roxy Longoria RN) sodium chloride 0.9% IV FLUSH (NS) SYRINGE 3 mL 3 mL, IV Flush, NEEDED, Starting on Estrellita 11/25/24 at 1831, Until Fri11/26/24 at 1706, Other, flushes sodium chloride 0.9% IV LINE FLUSH (NS) BAG 30 mL 30 mL, IV Flush, SEE ADMINISTRATION INSTRUCTIONS, Starting on Estrellita 11/25/24 at 1831, Until Fri11/26/24 at 1706, Other, priming/flush fluid Linked Groups Order Group 1: ondansetron (Zofran) injection 4 mgJump to med 4 mg, IV Push, EVERY 6 HOURS NEEDED, Starting on Estrellita 11/25/24 at 1831, Until Fri11/26/24 at 1706, Nausea, Vomiting Or ondansetron (Zofran ODT) disintegrating tablet 4 mgJump to med 4 mg, Oral, EVERY 6 HOURS NEEDED, Starting on Estrellita 11/25/24 at 1831, Until Fri11/26/24 at 1706, Nausea, Vomiting documented in this encounter Orders Medications Ordered That Nico ht Not Have Been Administered Count Last Ordered Date First Ordered Date acetaminophen (TYLENOL) tablet 650 mg 1 dextrose (D50) 50 % injection 12.5-25 g 2 0 11/25/2024 famotidine (Pepcid) tablet 20 mg 1 11/25/19 glucagon (diagnostic) (Gluca gen) injection 1 mg 2 11/25/2024 glucose (Glutose) 40 % gel 37.5-112.5 g 2 0 11/25/2024 metoclopramide (Reglan) tablet 10 mg 1 11/04 ondansetron (Zofran ODT) dis integrating tablet 4 mg 1 11/25/2024 sodium chloride 0.9% IV FLUS H (NS) SYRINGE 3 mL 1 11/25/2024 sodium chloride 0.9% IV LINE FLUSH (NS) BAG 30 mL 1 11/25/2024 Admission Count Last Ordered Date First Orde red Date ASSIGN TO OBSERVATION 11/26/2024 ADMIT TO INPATIENT 1 11/25/2024 Discharge Count Last Ordered Date First Orde red Date DISCHARGE PATIENT 1 11/26/2024 Nursing Count Last Ordered Date First Orde red Date NURSE ADMISSION (VIRTUAL) 1 11/25/2024 Consult Count Last Ordered Date First Orde red Date IP CONSULT TO DIABETES 1 11/26/2024 IP CONSULT TO L D RN/NURSE 1 IP CONSULT TO NUTRITION SERVICES 1 11/25/19 25 PHARMACY COMMUNICATION Count Last Ordered Date First Ordered Date MEDICATION NOT INDICATED 1 11/25/2024 documented in this encounter Care Teams Citrix Engineer Relationship Specialty Start Date End Date Rosmery Albright, PRODUCTION SUPERVISOR TRAINEE, BILINGUAL STUDENT TUTOR [facility] [address] [address] [place] [address] Endocrinology 11/14/21 Oleg Morris MD [address] [place] [address] Gastroenterology 01/22/23 documented as of this encounter
--- OUTSIDE RECORDS SUMMARY | 2024-12-06 19:11 | XMS_ITS | Encounter Summary ---
Author Organization [facility] Address [address] [address] Phone Care Team Providers Care Round Kiln Drawer Name Role Phone Paola Clemons MD Primary Care Provider [phone] Rosmery Albright APRN, CUSHION PADDER Unavailable [phone] Fred Leyva MD Primary Care Provider Oleg Morris MD Unavailable [phone] Fred Leyva MD Primary Care Provider Baron Collado CUSHION PADDER Primary Care Provider [phone] Reason for Visit * Reason Comments Refill Request Encounter Details Date Type Department Care Team ([facility] st Contact Info) Description 05/10/2022 Refill [facility] [address] [place] [address] Rosmery Albright APRN, CUSHION PADDER [address] [facility] [address] [place] [address] Refill Request Social History Tobacco Use Types Packs/Day Years Used Date Smoking Tobacco: Former Smokeless Tobacco: Never Comments:Quit 7 years ago Alcohol Use Standard Drinks/Week Comments Never 0 (1 standard drink = 0.6 oz pur e alcohol) 8 Years sober Comments Unknown Sex and Gender Information Value Date Recorded Sex Assigned at Female 09/12/2021 12:45 PM POST TENSIONING IRONWORKER Legal Sex Female 3:03 PM CDT Gender Identity Female 09/12/2021 12:45 PM POST TENSIONING IRONWORKER Sexual Orientation Not on file documented as of this encounter Plan of Treatment Upcoming Encounters Date Type Department Care Team (Late st Contact Info) Description 01/07/2025 2:30 PM POST TENSIONING IRONWORKER Appointment [facility] [address] [place] [address] [address] [place] [phone] Rosmery Albright, PHOTOGRAPHS CURATOR, CUSHION PADDER [address] [facility] [address] [place], [place] [id number] documented as of this encounter Visit Diagnoses Not on filedocumented in this encounter Additional Health Concerns Infection Onset Date Last Indicated Resolved Time COVID-19 Confirmed 08/25/2022 08/25/2022 11:06 PM POST TENSIONING IRONWORKER R/O Respiratory Pathogens 11/26/2023 11/26/2023 6:05 PM POST TENSIONING IRONWORKER R/O COVID-19 11/26/2023 11/26/2023 11/26/2023 6:05 PM POST TENSIONING IRONWORKER R/O Respiratory Pathogens 01/14/2024 01/14/2024 8:05 PM CDT R/O COVID-19 01/14/2024 01/14/2024 01/14/2024 8:05 PM CDT COVID-19 Confirmed 01/14/2024 01/14/2024 11:06 PM CDT documented as of this encounter Care Teams Round Kiln Drawer Relationship Specialty Start Date End Date Paola Clemons MD [address] [place] [address] PCP - General Family Medicine 10/25/22 12/16/22 Fred Leyva MD [address] [address] PCP - General Internal Medicine 12/17/22 05/09/23 Fred Leyva MD [address] [address] PCP - General Internal Medicine 07/18/23 08/21/23 Baron Collado CUSHION PADDER [address] [address] PCP - General Nurse Practitioner 12/01/24 Rosmery Albright APRN, CUSHION PADDER [address] [id number] Endocrinology 11/14/21 Oleg Morris MD [address] [address] Gastroenterology 01/22/23 documented as of this encounter
--- OUTSIDE RECORDS SUMMARY | 2024-12-06 19:11 | XMS_ITS | Clinical Summary ---
Author Organization [facility] Address [address] [address] Phone Care Team Providers Care Basketball Player Name Role Phone Rosmery Albright APRN, CNP Unavailable [phone] Oleg Morris MD Unavailable [phone] Baron Collado MARINE DRAFTER Primary Care Provider [phone] Allergies Active Allergy Reactions Criticality Noted Date Comments Amoxicillin RASH Medium 07/25/2023 Justicia Adhatoda Anaphylaxis High 04/22/2019 All tree nuts Penicillins RASH Medium 04/22/2019 Sulfa Drugs RASH Medium 04/22/2019 Medications Continuous Blood Gluc Meter Shop Supervisor (Dexcom G6 Meter Shop Supervisor) Device by Does not apply route. 10/12/20 19 Active Microlet Lancets Misc by Does not apply route. 10/12/20 19 Active Insulin Pen Needle 29G X 5MM MiscIndications:Ty pe 1 diabetes mellitus without complication (HCC) 1 Units by Does not apply route six times a day. 200 Each 11 09/12/20 21 Active Insulin Syringe-Needle U-100 (INSULIN SYRINGE 1CC/31GX5/16) 31G X 5/16 1 ML MiscIndications:Ty pe 1 diabetes mellitus without complication (HCC) 1 Each by SEE ADMIN INSTRUCTIONS route five times a day. Use to administer insulin up to 5 times a day 200 Each 1 08/07/20 22 Active Insulin Disposable Pump (Omnipod 5 G6 Intro, Gen 5,) KitIndications:Typ e 1 diabetes mellitus with hyperglycemia (HCC) Intro kit, 10 pods, use one pod every 3 days 1 Kit 10/09/20 22 Active metoclopramide (Reglan) 10 MG tabletIndications: Nausea Take 1 Tablet by mouth four times a day as needed for Nausea. 56 Tablet 07/25/20 23 Active clindamycin (Cleocin T) 1 % solutionIndication s:Acne vulgaris APPLY TOPICALLY TO THE AFFECTED AREA TWICE DAILY 30 mL 5 08/22/20 23 Active B-D ULTRAFINE III SHORT PEN 31G X 8 MM deviceIndications: Type 1 diabetes mellitus without complication (HCC) USE 1 EACH EVERY DAY FOR INSULIN ADMINISTRATION 100 Each 3 12/12/19 24 Active Continuous Glucose Sensor (Dexcom G6 Sensor) MiscIndications:Ty pe 1 diabetes mellitus with hyperglycemia (HCC) Inject 1 Each under the skin every ten days. Use to check blood sugars daily per forensic accountant's recommendation. 9 Each 3 05/25/20 24 Active glucose blood test (Contour Next Test)Indications:T ype 1 diabetes mellitus with hyperglycemia (HCC) USE TO CHECK BLOOD SUGAR UP TO 6 TIMES DAILY 200 Strip 3 05/25/20 24 Active Insulin Disposable Pump (Omnipod 5 G6 Pods, Gen 5,) MiscIndications:Ty pe 1 diabetes mellitus with hyperglycemia (HCC) 1 Units SEE ADMIN INSTR for Other (DM1). Change pod every 48-72 hours 25 Each 3 05/25/20 24 Active insulin glargine (Lantus SoloStar) 100 UNIT/ML pen injectionIndicatio ns:Type 1 diabetes mellitus with hyperglycemia (HCC) Up to 45 units daily 15 mL 1 05/25/20 24 Active Glucagon (Baqsimi Two Pack) 3 MG/DOSE PowderIndications: Type 1 diabetes mellitus with hyperglycemia (HCC) Instill 3 mg nasally as needed (severe hypoglycemia / unresponsiveness) . 2 Each 2 06/28/20 24 Active Continuous Glucose Transmitter (Dexcom G6 Transmitter) MiscIndications:Ty pe 1 diabetes mellitus with hyperglycemia (HCC) 1 EACH BY ROUTE EVERY 3 MONTHS. USE TO CHECK BLOOD SUGARS DAILY PER COMMANDER POLICE RESERVES'S RECOMMENDATION 1 Each 07/12/20 24 Active insulin aspart FlexPen (NovoLOG) 100 UNIT/ML pen injectionIndicatio ns:Type 1 diabetes mellitus with hyperglycemia (HCC) INJECT UP TO 45 UNITS EVERY DAY NEEDED FOR EMERGENCY PUMP BACK UP PLAN 3 mL 2 07/13/20 24 Active insulin aspart (NovoLOG) 100 UNIT/ML vial injectionIndicatio ns:Type 1 diabetes mellitus with hyperglycemia (HCC) ADMINISTER UP TO 60 UNITS VIA INSULIN PUMP DAILY 54 mL 3 07/19/20 24 Active escitalopram (Lexapro) 10 MG tabletIndications: Mild episode of recurrent major depressive disorder (HCC),EDIL (generalized anxiety disorder) Take 1 Tablet by mouth one time a day. 30 Tablet 08/19/20 24 Active ondansetron (Zofran ODT) 4 MG disintegrating tabletIndications: Chronic nausea DISSOLVE 1 TABLET ON THE TONGUE EVERY 8 HOURS NEEDED FOR NAUSEA 10 Tablet 08/19/20 24 Active famotidine (Pepcid) 20 MG tabletIndications: Gastroesophageal reflux disease without esophagitis Take 1 Tablet by mouth one time a day as needed for Heartburn. Goal: 2 times a week. Administer 10 to 60 minutes before eating food or drinking beverages known to cause heartburn 30 Tablet 08/19/20 24 Active traZODone (Desyrel) 50 MG tabletIndications: Sleep difficulties Take 1-2 Tablets by mouth at bedtime. 180 Tablet 3 09/01/20 Active Active Problems Patient Care Coordination No te Formatting of this note is d ifferent from the original. Provider: Non-Provider: Current Plan: Type 1 DM - Endocrinology Dr. Chavez -Upcomming Endo appt 10/07/24 -A1c=13.8% 05/25/24 -Depression [place] Registry Review Registries Patient is Active On: Diabetes: Current Diabetes status: A1C < 8.0, last 180 days: NOT Meeting Lab Results Component Value Date HGA1C 13.8 05/25/2024 BP < 140/90: Meeting BP Readings from Last 2 Encounters: 07/19/24 122/81 07/08/24 107/69 Taking Statin: Meeting Lab Results Component Value Date LDLC 78 05/25/2024 Current Tobacco Use?: Meeting If IVD, taking ASA: Meeting Kidney Function: Lab Results Component Value Date GFR >60 07/02/2024 MICALBURI 127.3 05/25/2024 Last Diabetic Eye Exam: Not Found Next Office Visit Due: Endo appt scheduled for 10/07/24 Depression 05/25/2024 1:00 PM PHQ-9 score only Total Score: 7 Suicidal Ideation(rooming form) Not at all Next PHQ9 Check Due: Next Office Visit Due: Colorectal Cancer Screening Last CRC Screening Completed: Not Found Last Documentation/Discussion: Exclusions: Next CRC Screening Due: Now Breast Cancer Screening Last Mammogram date: 10/20/2023 Last Documentation/Discussion: Exclusions: Next Breast Cancer Screening Due: 10/20/2025 Health Care Maintenance Exam Last Physical: 01/22/2023 Last AWV: Not Found Physical Issues/Barriers to Care: Psychosocial Issues/Barriers to Care: Problem Noted Date Diagnosed Date Diabetic ketoacidosis withou t coma associated with type 1 diabetes mellitus 11/25/2024 S/P lumpectomy of breast 08/19/2024 Assessment & Plan (08/19/2024 12:19 PM CDT): -Excisional biopsy on 03/2023 secondary to a left benign breast hematoma. -Excisional biopsy on 07/2024 secondary to a right benign breast lump complicated by an infection on 07/19/2024 treated with keflex. Resolved. No concerns today. Mild episode of recurrent major depressive disor pretty 08/19/2024 Assessment & Plan (08/19/2024 12:19 PM CDT): -Patient had good success with Zoloft previously, but would like to try different SSRI due to reports of generalized hyperhidrosis worse at night. -No insurance coverage with Viibryd or Trintellix. -Discussed with the patient that we can trial her on Lexapro; however, there is a possibility that she may experience a level of hyperhidrosis with this medication as well. Patient was open to starting the medication. Prescription at the pharmacy. Follow-up with new primary care provider, but if she cannot establish care after 30 days, she can do a video visit here. EDIL (generalized anxiety disorder) 08/19/2024 Assessment & Plan (08/19/2024 12:19 PM CDT): See MDD Gastroesophageal reflux disease without esophagi tis 08/19/2024 Assessment & Plan (08/19/2024 12:19 PM CDT): See nausea Elevated aspartate aminotransferase level 2023 Assessment & Plan (07/02/2024 4:49 PM CDT): Mild elevation seen in AST. Patient denies alcohol use. This could be multifocal. First, she has uncontrolled DM1 which could be causing a level of muscle breakdown leading to elevated AST levels. There also could be a component of metabolic dysfunction-associated steatotic liver disease. I can recheck this today, but ultimately should be followed up in about 3 months for trending after we have better control of her blood sugars. Low ferritin 07/02/2024 Assessment & Plan (07/02/2024 4:49 PM CDT): Patient had a decreased ferritin identified on a previous lab draw. Recommend working on increasing iron consumption through healthy food options discussed during today's appointment. I do not think she needs iron supplementation Calculus of gallbladder with out cholecystitis without obstruction 10/02/2022 Assessment & Plan (10/02/2022 10:24 AM STOCK BROKER): Informs me that she had gallstones at some point and would like to discuss cholecystectomy with surgery, as such we will refer to surgeon. Sleep difficulties 09/12/2021 Assessment & Plan (08/19/2024 12:19 PM CDT): Continue on trazodone. Assessment & Plan (09/12/2021 11:59 AM STOCK BROKER): Stable, though is taking 100 mg of hydroxyzine + liquid diphenhydramine (OTC ZzzQuil) every night for sleep. PharmD educated that she is taking high dose of hydroxyzine, which is similar in mechanism to diphenhydramine, plus additional diphenhydramine. Together can be very sedating, cause anticholingergic side effects, and contribute to next day drowsiness. We discussed the importance of safely using medication for sleep. Though 100 mg of hydroxyzine is indicated for sedation we will try trazodone instead d/t decreased likelihood of side effects. Start with 50 mg at bedtime, increase to 100 mg if needed. Stop hydroxyzine, ideally no ZzzQuil. Chronic nausea 01/10/2021 Overview (01/22/2023): 3 days of vomiting every month started 2021, had work up including EGD, gastric emptying, CT scan. Assessment & Plan (08/19/2024 12:19 PM CDT): No history of gastroparesis. -With her history of gastroesophageal reflux, we will trial her on as needed famotidine. -Refilling zofran todaty -Could consider mirtazapine in the future if we are able to get her blood sugars under better control. Assessment & Plan (01/22/2023 11:06 AM CDT): Doing well and has had no further vomiting since October 16. She is hesitant to be on Protonix long-term. We discussed that she can switch to Pepcid, try it twice a day for 2 weeks and then if still doing well switch to once a day and see how she does. For now can continue the Reglan Assessment & Plan (10/02/2022 12:49 PM STOCK BROKER): Follow-up with GI as directed o Control sugars o Continue Pantoprazole as directed / diet recommendations o Consider gastric emptying study in the future We discussed importance of compliance with insulin and tight blood sugar control Assessment & Plan (10/02/2022 10:25 AM STOCK BROKER): Nausea is resolved since undergoing endoscopy and taking pantoprazole, feels her sugars under better control as well.Given symptom resolution will defer gastric emptying study at this time. Advised to taper pantoprazole. Continue tight blood glucose control. We discussed trying to taper PPI by skipping once a week for the first week then twice a week for the next week then three times a week the next week and so on until on lowest dose possible that is giving symptom relief. The colunga will be dietary adherence to allow this to happen. Assessment & Plan (08/22/2022 9:32 AM CDT): She describes nausea and queasy sensation in the stomach ongoing since December 2020, with at least 2 episodes of vomiting every month, unprovoked, no specific triggers, vomiting Of food contents followed by vomiting of bilious material. No diarrhea, no abdominal cramps. She is a type I diabetic with fluctuating sugars. As such proceed with EGD to exclude peptic ulcer disease/gastritis/duodenitis. Trial of pantoprazole 40 mg about 30 minutes for breakfast x4 weeks. Pending EGD may need to consider Gastric emptying study to exclude gastroparesis. Return to clinic to see me in 4 weeks after above. Type 1 diabetes mellitus 04/22/2019 Overview (01/22/2023): Diagnosed 2006 Assessment & Plan (08/19/2024 12:19 PM CDT): Patient will continue working with current endocrinology team virtually following moved to [facility]. Assessment & Plan (07/07/2024 9:04 AM CDT): We will change basal rate is 1.0 units/h [id number]. We will change insulin to carb ratio to 1 unit per 12 g for all meals. Change sensitivity to 1 unit per 50 points. Will have SRINATH Simmons reach out to her in a few days to make further adjustments. She is moving to [place], [place]. She should be okay for surgery tomorrow. Sugars are not optimal but we will work with her carefully to bring them closer to normal. She has had a long history of erratic, high sugars. Assessment & Plan (07/06/2024 7:34 AM CDT): Last A1c: 13.8. Control: poor. Hx poor compliance, which she is working on getting better at now that her mental health is better. Using CGM with average glucose 246 mg/dL. Uses OmniPod (w/insulin) and reports overall better readings. This is managed by pharmacy and endocrinology. Kidney: Nephropathy is present. The last micro-analysis identified some protein in the urine. Since then, she has been able to follow up with endocrinology. If this continues, consider getting her on FREDY/ARB. Perioperative: In reviewing clinical records, I found that the patient was informed by endocrinology that she needs to get her blood sugars under control prior to and after surgery to reduce the risk of complications. I have contacted endocrinology to get their perspective. Hopefully, they will be able to get her in earlier this week for a VV visit to review her blood sugars. Assessment & Plan (06/28/2024 10:09 AM CDT): Uncontrolled, non-compliance with insulin pump and follow-up. She recently restarted wearing her Omnipod 5 insulin pump again ~1 month ago. Avg sensor glucose over the last two weeks is 223 mg/dL with BG 37% in range, 335 high, 30% very high, 0% low. Blood sugars with her pump have been erratic, though overall better controlled than previously, primarily due to not bolusing for carbs prior to consumption. She often does a correction after the fact, though commonly has been exited to manual mode prior to this. Encouraged bolusing before all carbs. We also discussed using exercise mode while at work, turning on 30-60 mins prior to starting work and continuing for up to 1 hour afterwards. She had a difficult day yesterday with severe hypoglycemia requiring self-administration of Baqsimi intranasal glucagon. There was a significant discrepancy between glucometer (~500 mg/dL) and Dexcom readings, resulting in her calibrating her Dexcom and delivering insulin for the glucometer reading. This caused severe and difficult to treat hypoglycemia. States things are okay now, though BG is high (trending down, correction delivered during call) Turn on exercise mode if fasting and prior to upcoming surgery for benign lump removal of right breast No changes to pump settings, working on compliance with insulin administration and allowing pump more time to learn her blood sugar with its adaptive algorithm F/up with Rosmery Albright or Rola in 1 month prior to moving to [place] Assessment & Plan (05/25/2024 5:11 PM CDT): -Poorly managed type 1 diabetes with poor compliance to follow-ups with endocrinology, which I have recommended on multiple occasions. She is now requesting refills of her diabetic supplies of medications to get her until she is able to establish care with an housekeeping room attendant in [place]. I discussed with the patient that this is not something that primary care should be managing, but I also do not want her to run out of medications. Lab Results Component Value Date HGA1C 13.8 05/25/2024 -A1c increased to 12.8 from 10.7. Referred to pharmacy as she has not been able to get into endocrine. Current regimen: 30 (increase from 27) unit lantus in the AM. 1 unit per 8 carbs unit of novolog x3 daily. Sliding and carb count. 151- 200: zero 201-250: 2 units 251- 300 4 units 301- 350: 5 units 351- 400: 5 units Greater that 600 6 units -Patient is normotensive, but consider FREDY inhibitor based on microalbumin urine today -Lipid panel today. Consider statin therapy. Lifestyle: Encouraged high-fiber foods, low-glycemic index carbohydrates (such as fruits, vegetables, and whole grains), low-fat dairy products, oily fish, and minimal foods with saturated fats or trans-fatty acids into diet. I emphasized the importance of regular exercise and weight loss to help manage your blood sugar levels. We covered the prescribed medications, possible adverse effects, complaints, and the importance of raising any concerns or complaints. Assessment & Plan (03/13/2023 11:22 AM CDT): Significant improvement in consistency of use of OmniPod 5. There were 2 days over the course of the past 9 days where auto mode was not enabled, we discussed this was likely due to a max delivery notification that was not addressed and subsequently not returned automated mode. Aside from this, no settings adjustments required today, discussed improved consistency of bolusing with meals. Notably, patient is down 6 pounds weight, symptomatically she feels well. Assessment & Plan (03/04/2023 11:31 AM CDT): Blood sugar remains significantly uncontrolled while patient does not use an insulin pump and using basal insulin, conversely while still generally elevated significantly improved when using the OmniPod 5. Unfortunately, she has not been wearing the OmniPod 5 consistently as discussed, having restarted it yesterday in hopes of having her procedure still later this week. Did discuss that learning algorithm with OmniPod 5 requires consistent use to gradually improve and exert control over glycemic trends. Also, lack of use of boluses in general as well as lack of the CGM trend data, lack of bolusing before meals contributes to elevated glucose while using the pump. Patient also notes symptomatically feeling improved while on the pump however becomes frustrated with various user interface and perceived weight gain while using the pump. Unlikely weight gain associated with insulin pump use due to overall reduced insulin dosing. Assessment & Plan (02/12/2023 4:59 PM CDT): Significantly improved, though not at goal A1c <7%. Dahiana recently began wearing her Omnipod 5 insulin pump again to improve glycemic control leading up to March 06 breast lump excision. She is concerned about weight gain with insulin pump. We had a long discussion about importance of managing her diabetes and pathophysiology of why/when insulin causes weight gain. Discussed that body was likely burning fat for fuel when it did not have access to glucose d/t lack of insulin use, so slight weight gain with proper insulin use is to be expected. Additionally, noted her TDD with the pod is currently slightly less than her basal insulin dose, as the pod is frequently suspending insulin use to keep BG at goal 140 mg/dL. Regarding pump settings, ISF was weakened from 1:60 to 1:70 based on low blood sugar observed after giving a correction. Also considered she may have background insulin from an injection still on board at that time. F/u with Addy Gimenez in 2 weeks. Assessment & Plan (02/11/2023 12:33 PM CDT): Started using omnipod again this week so perioperative blood sugars will have good control despite last a1c being elevated. Meeting with pharmacist tomorrow and recommendation of how to use insulin pump perioperatively will be made at that time. Assessment & Plan (01/02/2023 12:29 PM STOCK BROKER): Despite significantly positive response from use of Omnipod 5 during short duration of wear (avg glucose 230-260 mg/dl with OP5, >400 days without), patient was intolerant to use due to weight gain associated with increased insulin administration, as well as frustration with wearing the device. Requests transition to Toujeo/ultra long acting basal. Will trial this and reconsider closed loop system in the future. Assessment & Plan (12/26/2022 12:29 PM STOCK BROKER): Uncontrolled around the clock glucose, patient had returned to using MDI insulin due to weight gain she associated with use of omnipod 5. She restarted use of OP5 today and will follow up next week. Assessment & Plan (10/31/2022 11:27 AM STOCK BROKER): Follow up after initiation of Omnipod 5, patient tolerating use of device, appreciates ease of use and user interface. Glucose remains generally significantly elevated, owing to initially purposely conservative settings to mitigate any hypoglycemia. Strengthen ICR, ISF, lowered glucose target. Also strengthened basal rate today given relative frequency of automated mode exits. Close follow up. Assessment & Plan (10/21/2022 9:16 AM STOCK BROKER): Omnipod 5 training completed with employment trainer today. See plan for rates and settings. Sugars are improved from 2 weeks ago with occasional hypoglycemia. Basal insulin administered roughly 24 hours prior to training. Activity mode enabled and will be used while working. Assessment & Plan (10/09/2022 10:53 AM STOCK BROKER): Continued significant qwxszf-stk-robqf hyperglycemia, she did have 1 day recently with well-controlled daytime sugars however overnight and fasting sugars remained above 300 mg deciliter. Historical user interface and intolerance issues with both tandem and OmniPod Dash, discussed in detail OmniPod 5, we will proceed with this. She does have ongoing GI symptoms, has seen GI, did discuss implications of continued hypoglycemia in the context of her GI symptoms. Assessment & Plan (10/02/2022 12:48 PM STOCK BROKER): Blood Sugar Goals : Fasting morning blood sugars : 80-120 mg/dL 1-2 hours after meals : less than 180 mg/dL Lab Results Component Value Date HGA1C 12.8 09/05/2021 A1C test gives a picture of the average glucose control in the past three months. We will continue to work together to control blood sugars and maintain an A1c of less than 8% to prevent diabetes complications. Please continue the following medications : Lantus 26 once daily and uses NovoLog 1 unit per 15 + 1 unit per 50 starting at 150 mg/dL. Today, we will : Follow-up with GI as directed o Control sugars o Continue Pantoprazole as directed / diet recommendations o Consider gastric emptying study in the future We discussed importance of compliance with insulin and tight blood sugar control Trial Tresiba or Toujeo in place of Lantus Closely monitor sugars Closely monitor sugars / DKA symptoms Follow-up in the next 2 weeks to review sugars High Blood Sugars : 1.) Check sugars very frequently - every 2-3 hours. 2.) Continue to take diabetes medications as directed 3.) Increase sugar free fluids / water 4.) Check urine or blood ketones 5.) Go to ER for treatment of DKA if symptoms develop such as : Fatigue Dry or flushed skin Nausea, vomiting, or abdominal pain Difficulty breathing Fruity odor on breath A hard time paying attention, or confusion Low Blood Sugars : If you experience low blood sugars (less than 60 mg/dl, OR symptoms including shaking/sweating/irritability), please : 1.) Eat 15-20 grams carbohydrates. 2.) If blood sugar is still low after 15 minutes, eat another 15-20 grams carbs. 3.) Once blood sugar returns to normal, consume a meal or snack to prevent another low blood sugar. 4.) Please contact us if you have low blood sugars and we can discuss medication changes to prevent low blood sugars Please follow-up in 1-2 weeks and or sooner if any concerns. Assessment & Plan (11/28/2021 12:13 PM STOCK BROKER): Uncontrolled diabetes. Patient had significant frustration with user interface with the OmniPod pump as well as irritation and intolerance of the adhesive with the pod itself. She has had difficulties with a number of different systems, MDI, OmniPod in tandem. She would be willing to return to the tandem pump if she would be able to disable most alarms and set a higher target glucose, noting frustration with regularity of alarms. She does note interest in islet cell transplants. Insulin regimen has returned to basal bolus, using 27 units of Lantus daily which has improved glycemic profile over the last day or 2 since discontinuing the OmniPod. Assessment & Plan (09/12/2021 12:12 PM STOCK BROKER): A1c not at goal <7%. A1c is significantly elevated at 12.8%. Dahiana endorses noncompliance with insulin and appears motivated to get back on track with her diabetes management. She and Rosmery discussed plan to improve adherence to current dosing of insulins, no changes made. PharmD and Dahiana discussed dislikes with Tandem insulin pump and what she hopes will be better with Omnipod DASH. PharmD educated on DASH system extensively, as well as upcoming hybrid closed loop Omnipod 5. Lack of tubing and ability to discretely manage insulin delivery from Android PDM will likely be beneficial for improving insulin compliance. We will proceed with paperwork for Omnipod DASH and follow-up in clinic for training. Assessment & Plan (09/12/2021 10:45 AM STOCK BROKER): Blood Sugar Goals : Fasting morning blood sugars : 80-120 mg/dL 1-2 hours after meals : less than 180 mg/dL Lab Results Component Value Date HGA1C 12.8 09/05/2021 A1C test gives a picture of the average glucose control in the past three months. We will continue to work together to control blood sugars and maintain an A1c of less than 8% to prevent diabetes complications. Please continue the following medications : Lantus 30 once daily and uses NovoLog 1 unit per 15 + 1 unit per 50 starting at 150 mg/dL. Today, we will : Follow-up with PharmD to review pump options / InPen We discussed importance of compliance with insulin Follow-up in for cold symptoms Closely monitor sugars / DKA symptoms Follow-up in the next 2-4 weeks to review sugars High Blood Sugars : 1.) Check sugars very frequently - every 2-3 hours. 2.) Continue to take diabetes medications as directed 3.) Increase sugar free fluids / water 4.) Check urine or blood ketones 5.) Go to ER for treatment of DKA if symptoms develop such as : Fatigue Dry or flushed skin Nausea, vomiting, or abdominal pain Difficulty breathing Fruity odor on breath A hard time paying attention, or confusion Low Blood Sugars : If you experience low blood sugars (less than 60 mg/dl, OR symptoms including shaking/sweating/irritability), please : 1.) Eat 15-20 grams carbohydrates. 2.) If blood sugar is still low after 15 minutes, eat another 15-20 grams carbs. 3.) Once blood sugar returns to normal, consume a meal or snack to prevent another low blood sugar. 4.) Please contact us if you have low blood sugars and we can discuss medication changes to prevent low blood sugars Please follow-up in 2-4 weeks and or sooner if any concerns. History of alcohol abuse 06/20/2011 Overview (01/22/2023): Sober since 08/31/13. Assessment & Plan (05/25/2024 5:11 PM CDT): He needs to abstain from alcohol use. Resolved Problems Problem Noted Date Diagnosed Date Resolved Date Brain fog 06/15/2024 08/19/2024 Diabetic nephropathy associa ivan with type 1 diabetes mellitus 05/25/2024 07/02/2024 Mass overlapping multiple qu adrants of right breast 10/07/2023 08/19/2024 Assessment & Plan (10/07/2023 3:31 PM STOCK BROKER): New mass, diagnostic mammogram ordered, please call to schedule Plan pending results, hx of recent large benign mass removed form left breast this past Summer by Dr García Anxiety 10/07/2023 08/19/2024 Assessment & Plan (05/25/2024 5:11 PM CDT): Heightened anxiety related to moving. Start gabapentin for both anxiety and neuropathy secondary to DM 1 Assessment & Plan (10/07/2023 3:32 PM STOCK BROKER): Taking sertraline 100 mg daily with good control, however side effect of sweating that doesn't seem to correlate with blood sugars Recommend trail of 75 mg dosing to see if still as beneficial with less side effect Allow 4-6 weeks to take full effect of dose change, follow up if still not improved, consider titration off in favor of another SSRI. Acute pain of left knee 07/03/202308/03 Assessment & Plan (07/03/2023 10:46 AM CDT): No joint line pain and no obvious laxity. History could suggest ACL tear? She will start with PT and then see if she needs further imaging. Breast mass 02/11/2023 07/03/2023 Assessment & Plan (07/03/2023 10:47 AM CDT): Biopsy done, benign Other insomnia 09/12/2021 09/12/2021 Assessment & Plan (09/12/2021 10:56 AM STOCK BROKER): Discuss Hydroxyzine dosing with Dr. 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 [place] [phone] Mel Jiang, JESSICA Follow Up 12/03/2024 Travel 12/01/2024 Telephone [facility] [address] [place] [phone] Rosmery Albright, STENOGRAPHER [employer], MARINE DRAFTER 11/26/2024 Patient Outreach [facility] [address] [place] [phone] Cynthia Yun RN Hospital Discharge Follow-up (TCM) 11/25/2024 6:25 PM STOCK BROKER - 11/26/2024 1:02 PM STOCK BROKER Hospital Encounter [facility] NURSING 15 MED SURG [address] [place] [id number] John Archuleta MD Greenwood, Thomas R, DO Hospital discharge follow-up (Primary Dx); Diabetic ketoacidosis without coma associated with type 1 diabetes mellitus (HCC) Discharge Disposition: Home and/or Self Care 11/25/2024 Orders Only [facility] HIS [address] [place] [address] Abstract, Tramaine, 11/25/2024 Travel 11/25/2024 Telephone [facility] [address] [place] [address] Kishan Bailey MBBS 09/29/2024 Abstract [facility] [address] [facility] [place] [address] Orly Serna LPN 09/14/2024 Telephone [facility] [address] [place] [phone] Tatianna Zhou Registry Management (Diabetes) from Last 3 Months Immunizations Name Administration Dates Next Due COVID-19 Vaccine (Genaro - 18+ Yrs) 01/18/2021 COVID-19 mRNA Vaccine (Moder na - 18+ Yrs) 08/27/2021 Hepatitis A, Adult 03/30/2008,12/31/2006 Hepatitis B, Adult 02/16/2018,07/09/2013, 011 Hepatitis B, Pediatric/adolescent 08/29/2000 Human Papilloma Virus Quadrivalent 12/11/2010,,12/31/2006 Influenza (3+ Yrs) NPF-Multi Dose Vial (Flu Clinic) 10/03/2010 Influenza MDCK Quadrivalent Preservative Free 09/02/2022 Influenza Quad Preservative Free 023,08/17/2021,08/16/2020,2018,08/05/2018,11/19/2017,10/13/2014 Influenza Trivalent Preservative Free 08/30/2024 Influenza Trivalent Recombin ant Preservative Free (Flublok) 10/21/2016 Influenza Trivalent With Preservative ,10/21/2012,10/03/2010,2007 MMR 02/08/2009,02/22/1999 Pneumovax 23 02/16/2018 TD >7Yrs Preservative Free 02/22/1999 TD >7yrs With Preservative 02/22/1999 Tdap (7 years and older) 07/25/2023,02/08/2009 Surgical History Surgery Date Site/Laterality Comments HAND SURGERY 11/03/2015 - 11/02/2016 fracture left hand, has hardware UPPER GASTROINTESTINAL ENDOSCOPY 09/20/2022 N/A Procedure: ESOPHAGOGASTRODUODENOSC OPY; Surgeon: Oleg Morris MD; Location: [facility] BREAST LUMPECTOMY 03/27/2023 Breast/Left Procedure: Excision of left breast mass; Surgeon: Cm García MD; Location: [facility] BREAST LUMPECTOMY 07/08/2024 Breast/Right Procedure: Right breast excisional biopsy; Surgeon: Cm García MD; Location: [facility] OR Medical History Medical History Date Comments Alcohol abuse 04/22/2019 HUS (hemolytic uremic syndro me), atypical (HCC) 1988 Type 1 diabetes mellitus (HCC) 04/22/2019 History of pertussis 04/22/2019 Seizure (HCC) 06/20/2011 Formatting of th is note might be different from the original. 2010, from hypoglycemia Overview: 2010, from hypoglycemia Muscle strain 06/09/2019 History of blood transfusion 1988 2 u nits Nausea Neuropathy Calculus of gallbladder Breast mass Breast mass 02/11/2023 Anxiety Brain fog Elevated aspartate aminotran sferase level Low ferritin Mass overlapping multiple qu adrants of right breast 10/07/2023 Family History Medical History Relation Comments No Known Problems Father GI Disease Maternal Grandmother Colon Cancer Maternal Uncle No Known Problems Mother Cardiovascular Disease Other 1 [employer] [place] - Relation: Grandmother, Problem: Family history of cardiac disorder Cardiovascular Disease Other 2 [employer] TW - Relation: Grandparent, Problem: Family history of cardiac disorder Anxiety Sister [employer] TW Relation Status Comments Father Alive Maternal Grandmother Maternal Uncle Mother Alive Other 1 Other 2 Sister Social History Tobacco Use Types Packs/Day Years Used Date Smoking Tobacco: Former Cigarettes 1 13 0 06/03/2001 - 06/03/2014 Smokeless Tobacco: Never Tobacco Cessation:Counseling Given: No Comments:Quit 7 years ago Alcohol Use Standard Drinks/Week Comments Yes 16 (1 standard drink = 0.6 oz pure alcohol) sober for 10 years, relapsed 4 months ago [facility] Utilities Answer Date Recorded In the past 12 months has th e [employer], gas, oil, or water company threatened to [...] any time in the past 12 m [facility], were you homeless or living in a group home (including now)? No 11/25/2024 EH IP Custom IPV Answer Date Recorded Do you feel UNSAFE in any of your personal relationships with your family members or any other acquaintances? No 2024 Comments No Sex and Gender Information Value Date Recorded Sex Assigned at Female 09/12/2021 12:45 PM STOCK BROKER Legal Sex Female 3:03 PM CDT Gender Identity Female 09/12/2021 12:45 PM STOCK BROKER Sexual Orientation Not on file Obstetrics History Last Filed Vital Signs Vital Sign Reading Time Taken Comments Blood Pressure 113/72 11/26/2024 8:41 AM STOCK BROKER Pulse 98 11/26/2024 8:41 AM STOCK BROKER Temperature 36.6 C (97.9 F) 11/26/2024 4:24 AM STOCK BROKER Respiratory Rate 16 11/26/2024 8:41 AM STOCK BROKER Oxygen Saturation 99% 11/26/2024 4:24 AM STOCK BROKER Inhaled Oxygen Concentration - - Weight 66 kg (145 lb 8.1 oz) 11/26/2024 4:22 AM STOCK BROKER Height 167.6 cm (5' 6) 11/25/2024 6:23 PM STOCK BROKER Body Mass Index 23.48 11/25/2024 6:23 PM STOCK BROKER Plan of Treatment Upcoming Encounters Date Type Department Care Team (Late st Contact Info) Description 01/07/2025 2:30 PM STOCK BROKER Appointment [facility] [address] [address] [place] [phone] Rosmery Albright, STENOGRAPHER [employer], MARINE DRAFTER [address] [place], [place] [phone] Health Maintenance Due Date Last Done Comments DIABETIC EYE EXAM 2004 COVID-19 Vaccine ( season) 2024 08/27/2021, 01/18/2021 DIABETES MICROALBUMIN Q1 YEAR (Standing Order) 04/25/2025 05/25/2024, 01/03/2021 DIABETES HGB A1C Q6 MONTHS (Standing Order) 05/26/2025 11/26/2024, 05/25/2024, 09/05/2021, Additional history exists DIABETES SERUM CREATININE Q1 YEAR (Standing Order) 11/26/2025 11/26/2024, 11/26/2024, 11/25/2024, Additional history exists Last pap w/o HPV Testing 01/23/2026 01/23/2023 Cervical Cancer Screening 01/25/2028 Last pap w/ HPV Testing 01/25/2028 01/24/2023 DIABETES LIPID PROFILE Q5 YEARS (Standing Order) 05/25/2029 05/25/2024, 02/11/2023, 01/03/2021 TETANUS (Standing Order) 07/25/2033 023, 02/08/2009, 02/22/1999, Additional history exists HPV Vaccine (Standing Order) Completed 12/11/2010, 03/30/2008, 12/31/2006 Hepatitis B Vaccine (Standing Order) Completed 02/16/2018, 07/09/2013, 12/11/2010, Additional history exists Pneumococcal/PCV20 Vaccine: Pediatrics (2-5 yrs) and At-Risk Patients (6-49 yrs) (Standing Order) Aged Out 02/16/2018 No longer eligible based on patient's age to complete this topic PERTUSSIS (Standing Order) Completed 07/25/2023, Influenza Vaccine Seasonal (Standing Order) Completed 08/30/2024, 07/25/2023, 09/02/2022, Additional history exists Procedures Procedure Name Priority Date/Time Associated Diagnosis Comments GLUCOSE, METER Routine 11/26/2024 12:36 PM STOCK BROKER GLUCOSE, METER Routine 11/26/2024 11:24 AM STOCK BROKER GLUCOSE, METER Routine 11/26/2024 10:33 AM STOCK BROKER GLUCOSE, METER Routine 11/26/2024 9:37 AM STOCK BROKER GLUCOSE, METER Routine 11/26/2024 8:35 AM STOCK BROKER HEMOGLOBIN A1C Routine 11/26/2024 8:29 AM STOCK BROKER BASIC METABOLIC PANEL Timed 11/26/2024 8:29 AM STOCK BROKER GLUCOSE, METER Routine 11/26/2024 7:50 AM STOCK BROKER GLUCOSE, METER Routine 11/26/2024 7:26 AM STOCK BROKER GLUCOSE, METER Routine 11/26/2024 6:33 AM STOCK BROKER GLUCOSE, METER Routine 11/26/2024 5:41 AM STOCK BROKER GLUCOSE, METER Routine 11/26/2024 4:11 AM STOCK BROKER GLUCOSE, METER Routine 11/26/2024 3:15 AM STOCK BROKER MAGNESIUM Routine 11/26/2024 3:14 AM STOCK BROKER BASIC METABOLIC PANEL Timed 11/26/2024 3:14 AM STOCK BROKER PHOSPHORUS Routine 11/26/2024 3:14 AM STOCK BROKER GLUCOSE, METER Routine 11/26/2024 2:13 AM STOCK BROKER GLUCOSE, METER Routine 11/26/2024 1:11 AM STOCK BROKER GLUCOSE, METER Routine 11/26/2024 12:17 AM STOCK BROKER BASIC METABOLIC PANEL Timed 11/25/2024 11:34 PM STOCK BROKER GLUCOSE, METER Routine 11/25/2024 11:07 PM STOCK BROKER GLUCOSE, METER Routine 11/25/2024 10:14 PM STOCK BROKER GLUCOSE, METER Routine 11/25/2024 9:12 PM STOCK BROKER BASIC METABOLIC PANEL Timed 11/25/2024 8:34 PM STOCK BROKER GLUCOSE, METER Routine 11/25/2024 8:09 PM STOCK BROKER PHOSPHORUS Routine 11/25/2024 6:51 PM STOCK BROKER BASIC METABOLIC PANEL STAT 11/25/2024 6:51 PM STOCK BROKER EXTERNAL SARS-COV-2 (MOLECULAR/PCR) RESULT 11/25/2024 1:00 PM STOCK BROKER EXTERNAL COMPR MET PANEL 11/25/2024 12:48 PM STOCK BROKER EXTERNAL HEMOGRAM 11/25/2024 12: 48 PM STOCK BROKER MICROALBUMIN/CREATI NINE RATIO, URINE Routine 05/25/2024 12:28 PM CDT Type 1 diabetes mellitus with hyperglycemia (HCC) LIPID PROFILE Routine 05/25/2024 12:28 PM CDT Type 1 diabetes mellitus with hyperglycemia (HCC) from Last 3 Months or Most Recently Relevant to Health Maintenance Results * (ABNORMAL) GLUCOSE, METER (11/26/2024 12:36 PM STOCK BROKER) Glucose Meter 166(H) 70 - 99 mg/dL 11/26/2024 12:43 PM STOCK BROKER [facility] POINT OF CARE Blood WHOLE BLOOD SPECIMEN / Unknown 11/26/2024 12:36 PM STOCK BROKER 11/26/2024 12:43 PM STOCK BROKER Ayden Ahuja DO [employer] CHEMISTRY ORDERABLES Fi nal Result Performing Organization Address [facility] Co de Phone Number [facility] POINT OF CARE [address] * (ABNORMAL) GLUCOSE, METER (11/26/2024 11:24 AM STOCK BROKER) Glucose Meter 172(H) 70 - 99 mg/dL 11/26/2024 11:30 AM STOCK BROKER [facility] POINT OF CARE Blood WHOLE BLOOD SPECIMEN / Unknown 11/26/2024 11:24 AM STOCK BROKER 11/26/2024 11:30 AM STOCK BROKER Ayden Clay Leigha DO [employer] CHEMISTRY ORDERABLES Fi nal Result Performing Organization Address City/[facility] Co de Phone Number [facility] POINT OF CARE [address] [place] [address] * (ABNORMAL) GLUCOSE, METER (11/26/2024 10:33 AM STOCK BROKER) Glucose Meter 163(H) 70 - 99 mg/dL 11/26/2024 10:40 AM STOCK BROKER [facility] POINT OF CARE Blood WHOLE BLOOD SPECIMEN / Unknown 11/26/2024 10:33 AM STOCK BROKER 11/26/2024 10:40 AM STOCK BROKER us Ayden Ahuja DO EC CHEMISTRY ORDERABLES Fi nal Result Performing Organization Address City/[facility]/ZIP Co de Phone Number [facility] POINT OF CARE [address] [place] [address] * (ABNORMAL) GLUCOSE, METER (11/26/2024 9:37 AM STOCK BROKER) Glucose Meter 123(H) 70 - 99 mg/dL 11/26/2024 9:[address] [facility] POINT OF CARE Blood WHOLE BLOOD SPECIMEN / Unknown 11/26/2024 9:37 AM STOCK BROKER 11/26/2024 9:43 AM STOCK BROKER us Ayden Ahuja DO EC CHEMISTRY ORDERABLES Fi nal Result Performing Organization Address [facility] de Phone Number [facility] POINT OF CARE [address] [place] [address] * GLUCOSE, METER (11/26/2024 8:35 AM STOCK BROKER) Glucose Meter 87 70 - 99 mg/dL 11/26/2024 8:[address] [facility] POINT OF CARE Blood WHOLE BLOOD SPECIMEN / Unknown 11/26/2024 8:35 AM STOCK BROKER 11/26/2024 8:41 AM STOCK BROKER us Ayden Ahuja DO EC CHEMISTRY ORDERABLES Fi nal Result Performing Organization Address City/[facility] Co de Phone Number [facility] POINT OF CARE [address] [place] [address] * (ABNORMAL) BASIC METABOLIC PANEL (11/26/2024 8:29 AM STOCK BROKER) Sodium 134 134 - 143 mEq/L 11/26/2024 9:39 AM [facility] Potassium 3.7 3.4 - 5.1 mEq/L 11/26/2024 9:39 AM [facility] Chloride 108 99 - 110 mEq/L 11/26/2024 9:39 AM [facility] Carbon Dioxide 20 19 - 29 mEq/L 11/26/2024 9:39 AM [facility] Anion Gap 6.0 3.0 - 15.0 mEq/L 11/26/2024 9:39 AM [facility] Blood Urea Nitrogen 24 5 - 24 mg/dL 11/26/2024 9:39 AM [facility] Creatinine 0.98 0.40 - 1.00 mg/dL 11/26/2024 9:39 AM [facility] Glomerular Filtration Rate 76 >60 mL/min/1. 73 m*2 11/26/2024 9:39 AM [facility] Comment:Risk of cardiovascul ar disease increases when GFR is abnormal; persistently reduced GFR values are a specific indication of CKD. This calculation uses CKD- EPI 2020 equation without adjustment for race; it has not been validated in women. Calcium 7.7(L) 8.4 - 10.5 mg/dL 11/26/2024 9:39 AM [facility] Glucose 85 70 - 99 mg/dL 11/26/2024 9:39 AM [facility] Blood BLOOD SPECIMEN / Unknown Venipuncture / Unknown 11/26/2024 8:29 AM [facility] 11/26/2024 8:58 AM [facility] Narrative [facility] - 11/26/2024 9:39 AM [facility] Current ADA criteria for Glucose: Normal: 70-99 mg/dL Impaired Fasting Glucose: 100-125 mg/dL Diabetes Mellitus: at or above 126 mg/dL The diagnosis of diabetes must be confirmed on a subsequent day by measuring Fasting Plasma Glucose, 2-hr PG or random plasma glucose (if symptoms are present). us John Archuleta MD EC CHEMISTRY ORDERABLES Fin al Result [facility] [address] [place] [id number] * (ABNORMAL) HEMOGLOBIN A1C (11/26/2024 8:29 AM STOCK BROKER) Hemoglobin A1c 9.0(H) 4.0 - 5.6 % 11/26/2024 9:12 AM STOCK BROKER [facility] Estimated Average Glucose 212 mg/dL 11/26/2024 9:12 AM STOCK BROKER [facility] Blood BLOOD SPECIMEN / Unknown Venipuncture / Unknown 11/26/2024 8:29 AM STOCK BROKER 11/26/2024 8:58 AM STOCK BROKER Narrative [facility] - 11/26/2024 9:12 AM STOCK BROKER HGA1C Reference Ranges >= 6.5 Diabetes* 5.7-6.4 Impaired glucose tolerance <5.7 Normal *In the absence of unequivocal hyperglycemia, results should be confirmed by repeat testing for the diagnosis of diabetes. [place] [employer] 2018 Ayden Ahuja DO EC CHEMISTRY ORDERABLES AB N Final Result Performing Organization Address [facility] Co de Phone Number [facility] [address] [place] [address] * GLUCOSE, METER (11/26/2024 7:50 AM STOCK BROKER) Glucose Meter 84 70 - 99 mg/dL 11/26/2024 7:[address] [facility] POINT [facility] CARE Blood WHOLE BLOOD SPECIMEN / Unknown 11/26/2024 7:50 AM STOCK BROKER 11/26/2024 7:57 AM STOCK BROKER Ayden Ahuja DO EC CHEMISTRY ORDERABLES Fi nal Result Performing Organization Address City/[facility] Co de Phone Number [facility]ARE [address] [place], [place] [id number] * GLUCOSE, METER (11/26/2024 7:26 AM STOCK BROKER) Glucose Meter 79 70 - 99 mg/dL 11/26/2024 7:[address] [facility] POINT OF CARE Blood WHOLE BLOOD SPECIMEN / Unknown 11/26/2024 7:26 AM STOCK BROKER 11/26/2024 7:33 AM STOCK BROKER John Archuleta MD EC CHEMISTRY ORDERABLES Fin al Result Performing Organization Address [facility] de Phone Number [facility] [address] [place] [address] * GLUCOSE, METER (11/26/2024 6:33 AM STOCK BROKER) Glucose Meter 88 70 - 99 mg/dL 11/26/2024 6:39 AM STOCK BROKER [facility] POINT OF [facility] Blood WHOLE BLOOD SPECIMEN / Unknown 11/26/2024 6:33 AM STOCK BROKER 11/26/2024 6:39 AM STOCK BROKER John Archuleta MD EC CHEMISTRY ORDERABLES Fin al Result Performing Organization Address [facility] Phone Number [facility] POINT OF CARE [address] [place] [address] * GLUCOSE, METER (11/26/2024 5:41 AM STOCK BROKER) Glucose Meter 87 70 - 99 mg/dL 11/26/2024 5:47 AM STOCK BROKER [facility] POINT OF [facility] Blood WHOLE BLOOD SPECIMEN / Unknown 11/26/2024 5:41 AM STOCK BROKER 11/26/2024 5:47 AM STOCK BROKER John Archuleta MD EC CHEMISTRY ORDERABLES Fin al Result Performing Organization Address [facility] de Phone Number [facility] CARE [address] [place] [address] * (ABNORMAL) GLUCOSE, METER (11/26/2024 4:11 AM STOCK BROKER) Glucose Meter 107(H) 70 - 99 mg/dL 11/26/2024 4:18 AM STOCK BROKER [facility] POINT OF [facility] Blood WHOLE BLOOD SPECIMEN / Unknown 11/26/2024 4:11 AM STOCK BROKER 11/26/2024 4:18 AM STOCK BROKER John Archuleta MD EC CHEMISTRY ORDERABLES Fin al Result Performing Organization Address City/[facility]/ZIP Co de Phone Number [facility] CARE [address] * (ABNORMAL) GLUCOSE, METER (11/26/2024 3:15 AM STOCK BROKER) Glucose Meter 142(H) 70 - 99 mg/dL 11/26/2024 3:[address] [facility] POINT OF CARE Blood WHOLE BLOOD SPECIMEN / Unknown 11/26/2024 3:15 AM STOCK BROKER 11/26/2024 3:21 AM STOCK BROKER John Archuleta MD EC CHEMISTRY ORDERABLES Fin al Result Performing Organization Address [facility] de Phone Number [facility]ARE [address] * (ABNORMAL) BASIC METABOLIC PANEL (11/26/2024 3:14 AM STOCK BROKER) Sodium 134 134 - 143 mEq/L 11/26/2024 3:46 AM [facility] Potassium 3.8 3.4 - 5.1 mEq/L 11/26/2024 3:46 AM [facility] Chloride 107 99 - 110 mEq/L 11/26/2024 3:46 AM [facility] Carbon Dioxide 19 19 - 29 mEq/L 11/26/2024 3:46 AM [facility] Anion Gap 8.0 3.0 - 15.0 mEq/L 11/26/2024 3:46 AM [facility] Blood Urea Nitrogen 29(H) 5 - 24 mg/dL 11/26/2024 3:46 AM [facility] Creatinine 1.17(H) 0.40 - 1.00 mg/dL 11/26/2024 3:46 AM [facility] Glomerular Filtration Rate 61 >60 mL/min/1. 73 m*2 11/26/2024 3:46 AM [facility] Comment:Risk of cardiovascul ar disease increases when GFR is abnormal; persistently reduced GFR values are a specific indication of CKD. This calculation uses CKD- EPI 2020 equation without adjustment for race; it has not been validated in women. Calcium 7.6(L) 8.4 - 10.5 mg/dL 11/26/2024 3:46 AM STOCK BROKER [facility] Glucose 131(H) 70 - 99 mg/dL 11/26/2024 3:46 AM [facility] Blood BLOOD SPECIMEN / Unknown Venipuncture / Unknown 11/26/2024 3:14 AM STOCK BROKER 11/26/2024 3:23 AM STOCK BROKER Narrative [facility] - 11/26/2024 3:46 AM STOCK BROKER Current ADA criteria for Glucose: Normal: 70-99 mg/dL Impaired Fasting Glucose: 100-125 mg/dL Diabetes Mellitus: at or above 126 mg/dL The diagnosis of diabetes must be confirmed on a subsequent day by measuring Fasting Plasma Glucose, 2-hr PG or random plasma glucose (if symptoms are present). John Archuleta MD EC CHEMISTRY ORDERABLES Fin al Result Performing Organization Address [facility] Co de Phone Number [facility] [address] [place] [address] * MAGNESIUM (11/26/2024 3:14 AM STOCK BROKER) Magnesium 1.8 1.8 - 2.7 mg/dL 11/26/2024 3:46 AM [facility] Blood BLOOD SPECIMEN / Unknown Venipuncture / Unknown 11/26/2024 3:14 AM STOCK BROKER 11/26/2024 3:23 AM STOCK BROKER John Archuleta MD EC CHEMISTRY ORDERABLES Fin al Result Performing Organization Address [facility] Co de Phone Number [facility] [address] [place] [address] * (ABNORMAL) PHOSPHORUS (11/26/2024 3:14 AM STOCK BROKER) Phosphorus 1.8(L) 2.5 - 4.6 mg/dL 11/26/2024 3:46 AM STOCK BROKER [facility] Blood BLOOD SPECIMEN / Unknown Venipuncture / Unknown 11/26/2024 3:14 AM STOCK BROKER 11/26/2024 3:23 AM STOCK BROKER John Archuleta MD EC CHEMISTRY ORDERABLES Fin al Result Performing Organization Address [facility] Co de Phone Number [facility] [address] [place] [address] * (ABNORMAL) GLUCOSE, METER (11/26/2024 2:13 AM STOCK BROKER) Glucose Meter 160(H) 70 - 99 mg/dL 11/26/2024 2:20 AM STOCK BROKER [facility] POINT [facility] CARE Blood WHOLE BLOOD SPECIMEN / Unknown 11/26/2024 2:13 AM STOCK BROKER 11/26/2024 2:20 AM STOCK BROKER John Archuleta MD EC CHEMISTRY ORDERABLES Fin al Result Performing Organization Address [facility] de Phone Number [facility]ARE [address] [place] [address] * (ABNORMAL) GLUCOSE, METER (11/26/2024 1:11 AM STOCK BROKER) Glucose Meter 167(H) 70 - 99 mg/dL 11/26/2024 1:18 AM STOCK BROKER [facility] POINT [facility] CARE Blood WHOLE BLOOD SPECIMEN / Unknown 11/26/2024 1:11 AM STOCK BROKER 11/26/2024 1:18 AM STOCK BROKER John Archuleta MD EC CHEMISTRY ORDERABLES Fin al Result Performing Organization Address [facility] Co de Phone Number [facility]ARE [address] [place] [address] * (ABNORMAL) GLUCOSE, METER (11/26/2024 12:17 AM STOCK BROKER) Glucose Meter 183(H) 70 - 99 mg/dL 11/26/2024 12:[address] [facility] POINT OF CARE Blood WHOLE BLOOD SPECIMEN / Unknown 11/26/2024 12:17 AM STOCK BROKER 11/26/2024 12:24 AM STOCK BROKER us John Archuleta MD EC CHEMISTRY ORDERABLES Fin al Result [facility] POINT [facility] CARE [address] [place], [place] [address] * (ABNORMAL) BASIC METABOLIC PANEL (11/25/2024 11:34 PM STOCK BROKER) Sodium 133(L) 134 - 143 mEq/L 11/26/2024 12:06 AM [facility] Potassium 4.0 3.4 - 5.1 mEq/L 11/26/2024 12:06 AM [facility] Chloride 106 99 - 110 mEq/L 11/26/2024 12:06 AM [facility] Carbon Dioxide 18(L) 19 - 29 mEq/L 11/26/2024 12:06 AM [facility] Anion Gap 9.0 3.0 - 15.0 mEq/L 11/26/2024 12:06 AM [facility] Blood Urea Nitrogen 29(H) 5 - 24 mg/dL 11/26/2024 12:06 AM [facility] Creatinine 1.20(H) 0.40 - 1.00 mg/dL 11/26/2024 12:06 AM [facility] Glomerular Filtration Rate 59(L) >60 mL/min/1. 73 m*2 11/26/2024 12:06 AM [facility] Comment:Risk of cardiovascul ar disease increases when GFR is abnormal; persistently reduced GFR values are a specific indication of CKD. This calculation uses CKD- EPI 202 equation without adjustment for race; it has not been validated in women. Calcium 7.8(L) 8.4 - 10.5 mg/dL 11/26/2024 12:06 AM [facility] Glucose 219(H) 70 - 99 mg/dL 11/26/2024 12:06 AM STOCK BROKER [facility] Blood BLOOD SPECIMEN / Unknown Venipuncture / Unknown 11/25/2024 11:34 PM STOCK BROKER 11/25/2024 11:44 PM STOCK BROKER Narrative [facility] - 11/26/2024 12:06 AM STOCK BROKER Current ADA criteria for Glucose: Normal: 70-99 mg/dL Impaired Fasting Glucose: 100-125 mg/dL Diabetes Mellitus: at or above 126 mg/dL The diagnosis of diabetes must be confirmed on a subsequent day by measuring Fasting Plasma Glucose, 2-hr PG or random plasma glucose (if symptoms are present). Jhon Archuleta MD EC CHEMISTRY ORDERABLES Fin al Result Performing Organization Address City/[facility]/ZIP Co de Phone Number [facility] [address] [place] [address] * (ABNORMAL) GLUCOSE, METER (11/25/2024 11:07 PM STOCK BROKER) Glucose Meter 215(H) 70 - 99 mg/dL 11/25/2024 11:13 PM STOCK BROKER [facility] POINT [facility] CARE Blood WHOLE BLOOD SPECIMEN / Unknown 11/25/2024 11:07 PM STOCK BROKER 11/25/2024 11:13 PM STOCK BROKER John Archuleta MD EC CHEMISTRY ORDERABLES Fin al Result Performing Organization Address [facility]/ZIP Co de Phone Number [facility]ARE [address] [place] [address] * (ABNORMAL) GLUCOSE, METER (11/25/2024 10:14 PM STOCK BROKER) Glucose Meter 257(H) 70 - 99 mg/dL 11/25/2024 10:20 PM STOCK BROKER [facility]ARE Blood WHOLE BLOOD SPECIMEN / Unknown 11/25/2024 10:14 PM STOCK BROKER 11/25/2024 10:20 PM STOCK BROKER John Archuleta MD EC CHEMISTRY ORDERABLES Fin al Result Performing Organization Address City/[facility] Co de Phone Number [facility] POINT [facility] CARE [address] [id number] * (ABNORMAL) GLUCOSE, METER (11/25/2024 9:12 PM STOCK BROKER) Glucose Meter 293(H) 70 - 99 mg/dL 11/25/2024 9:18 PM STOCK BROKER [facility] POINT [facility] CARE Blood WHOLE BLOOD SPECIMEN / Unknown 11/25/2024 9:12 PM STOCK BROKER 11/25/2024 9:18 PM STOCK BROKER us John Archuleta MD EC CHEMISTRY ORDERABLES Fin al Result Performing Organization Address [facility] Co de Phone Number [facility] [address] [place] [address] * (ABNORMAL) BASIC METABOLIC PANEL (11/25/2024 8:34 PM STOCK BROKER) Sodium 133(L) 134 - 143 mEq/L 11/25/2024 9:09 PM [facility] Potassium 4.4 3.4 - 5.1 mEq/L 11/25/2024 9:09 PM [facility] Chloride 103 99 - 110 mEq/L 11/25/2024 9:09 PM [facility] Carbon Dioxide 13(L) 19 - 29 mEq/L 11/25/2024 9:09 PM [facility] Anion Gap 17.0(H) 3.0 - 15.0 mEq/L 11/25/2024 9:09 PM [facility] Blood Urea Nitrogen 26(H) 5 - 24 mg/dL 11/25/2024 9:09 PM [facility] Creatinine 1.20(H) 0.40 - 1.00 mg/dL 11/25/2024 9:09 PM [facility] Glomerular Filtration Rate 59(L) >60 mL/min/1. 73 m*2 11/25/2024 9:09 PM [facility] Comment:Risk of cardiovascul ar disease increases when GFR is abnormal; persistently reduced GFR values are a specific indication of CKD. This calculation uses CKD- EPI 2020 equation without adjustment for race; it has not been validated in women. Calcium 8.0(L) 8.4 - 10.5 mg/dL 11/25/2024 9:09 PM STOCK BROKER [facility] Glucose 326(H) 70 - 99 mg/dL 11/25/2024 9:09 PM STOCK BROKER [facility] Blood BLOOD SPECIMEN / Unknown Venipuncture / Unknown 11/25/2024 8:34 PM STOCK BROKER 11/25/2024 8:38 PM STOCK BROKER Narrative [facility] - 11/25/2024 9:09 PM STOCK BROKER Current ADA criteria for Glucose: Normal: 70-99 [...] >250: Measured NA + (0.016X(glucose-100)) for the [employer] chemistry analyzers. John Archuleta MD EC CHEMISTRY ORDERABLES Fin al Result Performing Organization Address [facility]/State/ZIP Co de Phone Number [facility] [address] * (ABNORMAL) GLUCOSE, METER (11/25/2024 8:09 PM STOCK BROKER) [facility] Glucose Meter 336(H) 70 - 99 mg/dL 11/25/2024 8:16 PM STOCK BROKER [facility] POINT [facility] CARE Blood WHOLE BLOOD SPECIMEN / Unknown 11/25/2024 8:09 PM STOCK BROKER 11/25/2024 8:16 PM STOCK BROKER John Archuleat MD EC CHEMISTRY ORDERABLES Fin al Result [facility] POINT [facility] CARE [address] [place] [address], [facility] * (ABNORMAL) BASIC METABOLIC PANEL (11/25/2024 6:51 PM STOCK BROKER) Sodium 133(L) 134 - 143 mEq/L 11/25/2024 7:30 PM [facility] Potassium 4.4 3.4 - 5.1 mEq/L 11/25/2024 7:30 PM [facility] Chloride 102 99 - 110 mEq/L 11/25/2024 7:30 PM [facility] Carbon Dioxide 12(L) 19 - 29 mEq/L 11/25/2024 7:30 PM [facility] Anion Gap 19.0(H) 3.0 - 15.0 mEq/L 11/25/2024 7:30 PM [facility] Blood Urea Nitrogen 26(H) 5 - 24 mg/dL 11/25/2024 7:30 PM [facility] Creatinine 1.19(H) 0.40 - 1.00 mg/dL 11/25/2024 7:30 PM [facility] Glomerular Filtration Rate 60(L) >60 mL/min/1. 73 m*2 11/25/2024 7:30 PM [facility] Comment:Risk of cardiovascul ar disease increases when GFR is abnormal; persistently reduced GFR values are a specific indication of CKD. This calculation uses CKD- EPI 2020 equation without adjustment for race; it has not been validated in women. Calcium 8.2(L) 8.4 - 10.5 mg/dL 11/25/2024 7:30 PM [facility] Glucose 303(H) 70 - 99 mg/dL 11/25/2024 7:30 PM [facility] Blood BLOOD SPECIMEN / Unknown Venipuncture / Unknown 11/25/2024 6:51 PM STOCK BROKER 11/25/2024 6:56 PM STOCK BROKER [facility] - 11/25/2024 7:30 PM STOCK BROKER Current ADA criteria for Glucose: Normal: 70-99 [...] + (0.016X(glucose-100)) for the [employer] chemistry analyzers. John Archuleta MD EC CHEMISTRY ORDERABLES Fin al Result Performing Organization Address [facility] Co de Phone Number [facility] [address] * PHOSPHORUS (11/25/2024 6:51 PM STOCK BROKER) Phosphorus 2.7 2.5 - 4.6 mg/dL 11/25/2024 7:30 PM STOCK BROKER [facility] Blood BLOOD SPECIMEN / Unknown Venipuncture / Unknown 11/25/2024 6:51 PM STOCK BROKER 11/25/2024 6:56 PM STOCK BROKER John Archuleta MD EC CHEMISTRY ORDERABLES Fin al Result Performing Organization Address [facility] de Phone Number [facility] [address] [place] [address] * EXTERNAL SARS-COV-2 (MOLECULAR/PCR) RESULT (11/25/2024 1:00 PM STOCK BROKER) External SARSCOV2 Molecular PCR Negative Negative [facility] 11/25/2024 1:00 PM STOCK BROKER Narrative [facility] - 11/25/2024 1:00 PM STOCK BROKER Source result document attached to Order Number [id number] ([id number]) dated 11/25/2024. External results verified in Extract by Shilpa Tena on 12/01/2024 at 07:14 AM. us Provider Abstract MD JON PATHOLOGY ORDERABLES Fin al Result [facility] * (ABNORMAL) EXTERNAL COMPR MET PANEL (11/25/2024 12:48 PM STOCK BROKER) EXTERNAL SODIUM 133(L) 137 - 145 mmol/L [facility] EXTERNAL POTASSIUM 4.8 3.5 - 5.1 mmol/L [facility] EXTERNAL CHLORIDE 99 98 - 107 mmol/L [facility] EXTERNAL CO2 8(L) 22 - 30 mmol/L [facility] EXTERNAL GLUCOSE 567(H) 74 - 106 mg/dL [facility] EXTERNAL BUN 26(H) 7 - 17 mg/dL [facility] EXTERNAL CREATININE 1.1(H) 0.52 - 1.04 mg/dL [facility] Glomerular Filtration Rate 66(L) >90 ml/min [facility] EXTERNAL CALCIUM 9.3 8.4 - 10.4 mg/dL [facility] EXTERNAL AST(SGOT) 39(H) 14 - 36 U/L [facility] EXTERNAL ALT(SGPT) 29 9 - 52 U/L [facility] 11/25/2024 12:4 8 PM STOCK BROKER Narrative [facility] - 11/25/2024 12:48 PM STOCK BROKER Source result document attached to Order Number [id number] ([id number]) dated 11/25/2024. External results verified in Extract by Shilpa Tena on 12/01/2024 at 07:09 AM. us Provider Abstract MD JON LABORATORY Final Resul t [facility] * (ABNORMAL) EXTERNAL HEMOGRAM (11/25/2024 12:48 PM STOCK BROKER) EXTERNAL WBC 20.83(H) 3.4 - 10.7 10^3/uL [facility] EXTERNAL RBC 4.06 3.90 - 5.10 10^6/uL [facility] EXTERNAL HGB 10.6(L) 11.7 - 14.8 g/dL [facility] EXTERNAL HCT 33.7(L) 35.0 - 44.0 % [facility] EXTERNAL MCV 83.0 79.0 - 94.8 fL [facility] EXTERNAL MCH 26.1(L) 27.2 - 32.4 pg [facility] EXTERNAL MCHC 31.5(L) 32.1 - 36.3 g/dL [facility] EXTERNAL PLATELETS 382(H) 150 - 350 10^3/uL [facility] EXTERNAL RDW 14.9(H) 11.4 - 14.7 % [facility] 11/25/2024 12:4 8 PM STOCK BROKER 11/25/2024 Narrative [facility] - 11/25/2024 12:48 PM STOCK BROKER External results verified in Extract by Shilpa Tena on 12/01/2024 at 07:09 AM. us Provider Abstract EC LABORATORY Final Resul t Performing Organization Address City/[facility] Co de Phone Number [facility] * (ABNORMAL) MICROALBUMIN/CREATININE RATIO, URINE (05/25/2024 12:28 PM CDT) Urine Creatinine, Random 186.8 No Established Reference Range mg/dL 05/25/2024 5:35 PM CDT [facility] Urine Microalbumin 127.3(H) <=16.7 mg/L 05/25/2024 5:35 PM CDT [facility] Urine Microalbumin/Cre atinine Ratio 68(H) <30 mg/g creat 05/25/2024 5:35 PM CDT [facility] Urine VOIDED URINE SPECIMEN / Unknown Non-blood collection / Unknown 05/25/2024 12:28 PM CDT 05/25/2024 12:28 PM CDT us Baron Collado CNP EC URINE ORDERABLES Final Res ult Performing Organization Address City/[facility]/ZIP Co de Phone Number [facility] [address] [place] [address] * (ABNORMAL) LIPID PANEL (05/25/2024 12:28 PM CDT) Cholesterol 180 100 - 200 mg/dL 05/25/2024 5:11 PM CDT [facility] Triglycerides 109 <150 mg/dL 05/25/2024 5:11 PM [facility] HDL Cholesterol, Measured 80(H) 45 - 60 mg/dL 05/25/2024 5:11 PM T [facility] Non-HDL Cholesterol 100 <130 mg/dL 05/25/2024 5:11 PM [facility] LDL Cholesterol, Calculated 78 <130 mg/dL 05/25/2024 5:11 PM T [facility] Blood BLOOD SPECIMEN / Unknown Venipuncture / Unknown 05/25/2024 12:28 PM CDT 05/25/2024 12:28 PM CDT Narrative [facility] - 05/25/2024 5:11 PM CDT Cholesterol Reference Ranges (Adults >20 years) Desirable: <200 mg/dL Borderline High: 200-239 mg/dL High Risk: >240 mg/dL Cholesterol Reference Ranges (Children <20 years) Desirable: <169 mg/dL Borderline High: 170-199 md/dL High Risk: >200 mg/dL Triglyceride Reference Ranges Desirable: <150 mg/dL Borderline High: 150-199 mg/dL High Risk: >200 mg/dL NON-HDL Reference Ranges Desirable: < 130 mg/dL Near Desirable: 130-159 mg/dL Borderline High: 160-189 mg/dL High Risk: 190-219 mg/dL Very high Risk: >/=220 mg/dL Baron Collado MARINE DRAFTER EC CHEMISTRY ORDERABLES ABN F inal Result [facility] [address] [place] [address], [facility] [phone] from Last 3 Months or Most Recently Relevant to Health Maintenance Insurance [facility] [place] [facility] Advance Directives For more information, please contact: [phone] * Full Code (Latest Code Status on File) Date Activated Date Inactivated Comments 11/25/2024 6:31 PM 11/26/2024 5:11 PM * Full Code Date Activated Date Inactivated Comments 03/27/2023 11:13 AM 03/27/2023 4:36 PM * Full Code/Unaddressed Date Activated Date Inactivated Comments 03/27/2023 7:55 AM 03/27/2023 11:13 AM * Full Code Date Activated Date Inactivated Comments 09/20/2022 9:22 AM 09/20/2022 3:03 PM Care Teams Basketball Player Relationship Specialty Start Date End Date Baron Collado CNP [address] [address] PCP - General Nurse Practitioner 12/01/24 Rosmery Albright APRN, MARINE DRAFTER [address] [address] Endocrinology 11/14/21 Oleg Morris MD [facility] [address] [address] Gastroenterology 01/22/23
--- OUTSIDE RECORDS SUMMARY | 2024-12-06 19:11 | XMS_ITS | Encounter Summary ---
Author Organization [facility] Address [address] [address] Phone Care Team Providers Care Ship Fitter Name Role Phone Rosmery Albright APRN, CNP Unavailable [phone] Oleg Morris MD Unavailable [phone] Baron Collado CNP Primary Care Provider [phone] Reason for Visit * Reason Onset Date Comments Follow Up 12/03/2024 Encounter Details Date Type Department Care Team (Late st Contact Info) Description 12/03/[address] [facility] ENDOCRINOLOGY [address] [place] [id number] Mel Jiang, [facility] Follow Up Social History Tobacco Use Types Packs/Day Years Used Date Smoking Tobacco: Former Cigarettes 1 13 0 06/03/2001 - 06/03/2014 Smokeless Tobacco: Never Comments:Quit 7 years ago Alcohol Use Standard Drinks/Week Comments Yes 16 (1 standard drink = 0.6 oz pure alcohol) sober for 10 years, relapsed 4 months ago [facility] Utilities Answer Date Recorded In the past 12 months has [employer], gas, oil, or water [employer] threatened to shut off services in your [...] any time in the past 12 [facility], were you homeless or living in a fpc (including now)? No 11/25/2024 EH IP Custom IPV Answer Date Recorded Do you feel UNSAFE in any of your personal relationships with your family members or any other acquaintances? No 2024 Comments No Sex and Gender Information Value Date Recorded Sex Assigned at Female 09/12/2021 12:45 PM INSTRUMENT ROOM TECHNICIAN Legal Sex Female 3:03 PM CDT Gender Identity Female 09/12/2021 12:45 PM INSTRUMENT ROOM TECHNICIAN Sexual Orientation Not on file documented as [...] encounter Miscellaneous Notes * Telephone Encounter - Mel Jiang CMA - 12/03/2024 1:32 PM CST Called and L/M for Dahiana since she canceled her appointment today to see if she is doing okay and does not need anything prior to her follow-up appointment as she was recently hospitalized for DKA. RUMENT ROOM TECHNICIAN documented in this encounter Plan of Treatment Upcoming Encounters Date Type Department Care Team (Late st Contact Info) Description 01/07/2025 2:30 PM INSTRUMENT ROOM TECHNICIAN Appointment [facility] ENDOCRINOLOGY [address] [place] [phone] Rosmery Albright APRN, WELDING SUPERVISOR [address] [address] documented as of this encounter Visit Diagnoses Not on filedocumented in this encounter Care Teams Ship Fitter Relationship Specialty Start Date End Date Baron Collado CNP [address] [place] [address] PCP - General Nurse Practitioner 12/01/24 Rosmery Albright APRN, CHAN [facility] [address] [address] Endocrinology 11/14/21 Oleg Morris MD [facility] [address] [address] Gastroenterology 01/22/23 documented as of this encounter
--- OUTSIDE RECORDS SUMMARY | 2024-12-06 19:11 | XMS_ITS | Encounter Summary ---
Author Organization [facility] Address [address] [address] Phone Care Team Providers Care Talent Buyer Name Role Phone Paola Clemons MD Primary Care Provider [phone] Rosmery Albright APRN, SENIOR SOFTWARE DEVELOPMENT ENGINEER Unavailable Fred Leyva MD Primary Care Provider Oleg Morris MD Unavailable [phone] Fred Leyva MD Primary Care Provider Baron Collado SENIOR SOFTWARE DEVELOPMENT ENGINEER Primary Care Provider Reason for Visit * Reason Comments Refill Request Encounter Details Date Type Department Care Team ([facility] st Contact Info) Description 06/02/2022 Refill [facility] [address] [facility] [address] [place] [address] Rosmery Albright APRN, SENIOR SOFTWARE DEVELOPMENT ENGINEER [address] [facility] [address] [place] [address] Refill Request Social History Tobacco Use Types Packs/Day Years Used Date Smoking Tobacco: Former Smokeless Tobacco: Never Comments:Quit 7 years ago Alcohol Use Standard Drinks/Week Comments Never 0 (1 standard drink = 0.6 oz pur e alcohol) 8 Years sober Comments Unknown Sex and Gender Information Value Date Recorded Sex Assigned at Female 09/12/2021 12:45 PM CHAIR SPRING ASSEMBLER Legal Sex Female 3:03 PM CDT Gender Identity Female 09/12/2021 12:45 PM CHAIR SPRING ASSEMBLER Sexual Orientation Not on file documented as of this encounter Miscellaneous Notes * Telephone Encounter - Rosmery Albright APRN, CNP - 06/04/2022 11:00 AM CDT Left voicemail for patient. Pending call back to clarify dosing of Trazodone (50 mg or 100 mg at bedtime) Also, confirm she is not / planning to get . * Telephone Encounter - Olesya Forte RN,JOZEF - 06/03/2022 9:19 AM CDT Not discussed at last OV, please sign pending order if appropriate. documented in this encounter Plan of Treatment Upcoming Encounters Date Type Department Care Team ([facility] st Contact Info) Description 01/07/2025 2:30 PM CHAIR SPRING ASSEMBLER Appointment [facility] [address] [place] [phone] Rosmery Albright APRN, CNP [address] [facility] [address] [place], [place] [address] documented as of this encounter Visit Diagnoses Not on filedocumented in this encounter Additional Health Concerns Infection Onset Date Last Indicated Resolved Time COVID-19 Confirmed 08/25/2022 08/25/2022 11:06 PM CHAIR SPRING ASSEMBLER R/O Respiratory Pathogens 11/26/2023 11/26/2023 6:05 PM CHAIR SPRING ASSEMBLER R/O COVID-19 11/26/2023 11/26/2023 11/26/2023 6:05 PM CHAIR SPRING ASSEMBLER R/O Respiratory Pathogens 01/14/2024 01/14/2024 8:05 PM CDT R/O COVID-19 01/14/2024 01/14/2024 01/14/2024 8:05 PM CDT COVID-19 Confirmed 01/14/2024 01/14/2024 11:06 PM CDT documented as of this encounter Care Teams Talent Buyer Relationship Specialty Start Date End Date Paola Clemons MD [facility] [address] [facility] [address] [place] [address] PCP - General Family Medicine 10/25/22 12/16/22 Fred Leyva MD [address] [address] PCP - General Internal Medicine 12/17/22 05/09/23 Fred Leyva MD [address] [address] PCP - General Internal Medicine 07/18/23 08/21/23 Baron Collado SENIOR SOFTWARE DEVELOPMENT ENGINEER [address] [address] PCP - General Nurse Practitioner 12/01/24 Rosmery Albright APRN, SENIOR SOFTWARE DEVELOPMENT ENGINEER [address] [facility] [address] [place] [id number] Endocrinology 11/14/21 Oleg Morris MD [address] [address] Gastroenterology 01/22/23 documented as of this encounter
--- OUTSIDE RECORDS SUMMARY | 2024-12-06 19:11 | XMS_ITS | Encounter Summary ---
Author Organization [facility] Address [address] [address] Phone Care Team Providers Care Facilities Engineering Manager Name Role Phone Rosmery Albright APRN, CNP Unavailable [phone] Oleg Morris MD Unavailable [phone] Encounter Details Date Type Department Care Team (Latest Contact Info) Description 11/25/2024 Travel Social History Tobacco Use Types Packs/Day Years Used Date Smoking Tobacco: Former Cigarettes 1 13 0 06/03/2001 - 06/03/2014 Smokeless Tobacco: Never Comments:Quit 7 years ago Alcohol Use Standard Drinks/Week Comments Yes 16 (1 standard drink = 0.6 oz pure alcohol) sober for 10 years, relapsed 4 months ago [facility] Utilities Answer Date Recorded In the past 12 months has [facility] [employer], gas, oil, or water [employer] threatened to shut off services in your [...] any time in the past 12 m [facility], were you homeless or living in a penitentiary (including now)? No 11/25/2024 EH IP Custom IPV Answer Date Recorded Do you feel UNSAFE in any of your personal relationships with your family members or any other acquaintances? No 2024 Comments No Sex and Gender Information Value Date Recorded Sex Assigned at Female 09/12/2021 12:45 PM FELT HOOKER Legal Sex Female 3:03 PM CDT Gender Identity Female 09/12/2021 12:45 PM FELT HOOKER Sexual Orientation Not on file documented as of this encounter Functional Status * Patient's Vision Adequate to Safely Complete Daily Activities Answer Date of Assessment Author Yes 07/19/2024 7:38 PM RITAT Apryl Willson RN * Patient's Memory Adequate to Safely Complete Daily Activities Answer Date of Assessment Author Yes 07/19/2024 7:38 PM RITAT Apryl Willson, RN documented as of this encounter Mental Status * Patient's Judgment Adequate to Safely Complete Daily Activities Answer Entry Date Author Yes 07/19/2024 7:38 PM Apryl Lugo, RN documented in this encounter Plan of Treatment Upcoming Encounters Date Type Department Care Team (Late st Contact Info) Description 01/07/2025 2:30 PM FELT HOOKER Appointment [facility] ENDOCRINOLOGY [address] [place] [address] [address] [phone] Rosmery Albright, STONECUTTER, ROVING COURT REPORTER [address] [facility] [address] [place] [address] documented as of this encounter Visit Diagnoses Not on filedocumented in this encounter Care Teams Facilities Engineering Manager Relationship Specialty Start Date End Date Rosmery Albright, [place], ROVING COURT REPORTER [address] [facility] [address] [place] [address] Endocrinology 11/14/21 Oleg Morris MD [address] [facility] [address] [place] [address] Gastroenterology 01/22/23 documented as of this encounter
--- OUTSIDE RECORDS SUMMARY | 2024-12-06 19:11 | XMS_ITS | Encounter Summary ---
Author Organization [facility] Address [address] [address] Phone Care Team Providers Care Rn Pediatric Name Role Phone Rosmery Albright APRN, CNP Unavailable [phone] Oleg Morris MD Unavailable [phone] Baron Collado CNP Primary Care Provider [phone] Encounter Details Date Type Department Care Team (Late st Contact Info) Description 11/25/2024 Orders Only [facility] [address] [place] [address] Abstract, Provider, Social History Tobacco Use Types Packs/Day Years Used Date Smoking Tobacco: Former Cigarettes 1 13 0 06/03/2001 - 06/03/2014 Smokeless Tobacco: Never Comments:Quit 7 years ago Alcohol Use Standard Drinks/Week Comments Yes 16 (1 standard drink = 0.6 oz pure alcohol) sober for 10 years, relapsed 4 months ago [facility] Utilities Answer Date Recorded In the past 12 months has [facility] [employer], gas, oil, or water company threatened to shut off services in your home? No 11/25/2024 PHQ-2 Answer Date Recorded PHQ-2 Total 0 05/25/2024 Hunger Vital Sign Answer Date Recorded Within the past 12 months, y ou worried that your food would run out before you got the money to buy more. Never true 01/23/20 25 Within the past 12 months, t [...] any time in the past 12 m [facility], were you homeless or living in a snf (including now)? No 11/25/2024 EH IP Custom IPV Answer Date Recorded Do you feel UNSAFE in any of your personal relationships with your family members or any other acquaintances? No 2024 Comments No Sex and Gender Information Value Date Recorded Sex Assigned at Female 09/12/2021 12:45 PM MEDICAL BILLER CODER Legal Sex Female 3:03 PM CDT Gender Identity Female 09/12/2021 12:45 PM MEDICAL BILLER CODER Sexual Orientation Not on file documented as of this encounter Functional Status * Patient's Vision Adequate to Safely Complete Daily Activities Answer Date of Assessment Author Yes 07/19/2024 7:38 PM Apryl Lugo, RN * Patient's Memory Adequate to Safely [...] st Contact Info) Description 01/07/2025 2:30 PM MEDICAL BILLER CODER Appointment [facility] ENDOCRINOLOGY [address] [place] [address] [address] [place] [phone] Rosmery Albright, FILLING MACHINE OPERATOR, FIBERGLASS FINISHER [address] [facility] [address] [address] documented as of this encounter Procedures Procedure Name Priority Date/Time Associated Diagnosis Comments EXTERNAL SARS-COV-2 (MOLECULAR/PCR) RESULT 11/25/2024 1:00 PM MEDICAL BILLER CODER EXTERNAL COMPR MET PANEL 11/25/2024 12:48 PM MEDICAL BILLER CODER EXTERNAL HEMOGRAM 11/25/2024 12: 48 PM MEDICAL BILLER CODER documented in this encounter Results * EXTERNAL SARS-COV-2 (MOLECULAR/PCR) RESULT (11/25/2024 1:00 PM MEDICAL BILLER CODER) External SARSCOV2 Molecular PCR Negative Negative OUTSIDE LABORATORY 11/25/2024 1:00 PM MEDICAL BILLER CODER Narrative OUTSIDE LABORATORY - 11/25/2024 1:00 PM MEDICAL BILLER CODER Source result document attached to Order Number [id number] ([id number]) dated 11/25/2024. External results verified in Extract by Shilpa Tena on 12/01/2024 at 07:14 AM. us Provider Abstract MD [facility] PATHOLOGY ORDERABLES Fin al Result OUTSIDE LABORATORY * (ABNORMAL) EXTERNAL COMPR MET PANEL (11/25/2024 12:48 PM MEDICAL BILLER CODER) EXTERNAL SODIUM 133(L) 137 - 145 mmol/L [...] U/L OUTSIDE LABORATORY 11/25/2024 12:4 8 PM MEDICAL BILLER CODER Narrative OUTSIDE LABORATORY - 11/25/2024 12:48 PM MEDICAL BILLER CODER Source result document attached to Order Number [id number] ([id number]) dated 11/25/2024. External results verified in Extract by Shilpa Tena on 12/01/2024 at 07:09 AM. us Provider Abstract MD [facility] Final Resul t OUTSIDE LABORATORY * (ABNORMAL) EXTERNAL HEMOGRAM (11/25/2024 12:48 PM MEDICAL BILLER CODER) EXTERNAL WBC 20.83(H) 3.4 - 10.7 10^3/uL [...] % OUTSIDE LABORATORY 11/25/2024 12:4 8 PM MEDICAL BILLER CODER 11/25/2024 Narrative OUTSIDE LABORATORY - 11/25/2024 12:48 PM MEDICAL BILLER CODER External results verified in Extract by Shilpa Tena on 12/01/2024 at 07:09 AM. us Provider Abstract MD [facility] Final Resul t OUTSIDE LABORATORY documented in this encounter Visit Diagnoses Not on filedocumented in this encounter Care Teams Rn Pediatric Relationship Specialty Start Date End Date Baron Collado CNP [address] [address] PCP - General Nurse Practitioner 12/01/24 Rosmery Albright APRN, CNP [address] [facility] [address] [facility] [place] [address] Endocrinology 11/14/21 Oleg Morris MD [address] [facility] [address] [facility] [place] [address] Gastroenterology 01/22/23 documented as of this encounter
--- OUTSIDE RECORDS SUMMARY | 2024-12-06 19:11 | XMS_ITS | Encounter Summary ---
Author Organization [facility] Address [address] [address] Phone Care Team Providers Care Gis Analyst Developer Name Role Phone Rosmery Albright APRN, CNP Unavailable [phone] Oleg Morris MD Unavailable [phone] Encounter Details Date Type Department Care Team (Late st Contact Info) Description 11/25/2024 Telephone [facility] HOSPITALIST PROGRAM [address] [place] [address] Kishan Bailey MBBS [address] [place] [address] Social History Tobacco Use Types Packs/Day Years Used Date Smoking Tobacco: Former Cigarettes 1 13 0 06/03/2001 - 06/03/2014 Smokeless Tobacco: Never Comments:Quit 7 years ago Alcohol Use Standard Drinks/Week Comments Yes 16 (1 standard drink = 0.6 oz pure alcohol) sober for 10 years, relapsed 4 months ago [facility] Utilities Answer Date Recorded In the past 12 months has [facility] [employer], gas, oil, or water company threatened to [...] any time in the past 12 m [place], were you homeless or living in a senior care (including now)? No 11/25/2024 EH IP Custom IPV Answer Date Recorded Do you feel UNSAFE in any of your personal relationships with your family members or any other acquaintances? No 2024 Comments No Sex and Gender Information Value Date Recorded Sex Assigned at Female 09/12/2021 12:45 PM SENIOR RESEARCH ANALYST Legal Sex Female 3:03 PM CDT Gender Identity Female 09/12/2021 12:45 PM SENIOR RESEARCH ANALYST Sexual Orientation Not on file documented as of this encounter Functional Status * Patient's Vision Adequate to Safely Complete Daily Activities Answer Date of Assessment Author Yes 07/19/2024 7:38 PM RITAT Apryl Willson RN * Patient's Memory Adequate to Safely Complete Daily Activities Answer Date of Assessment Author Yes 07/19/2024 7:38 PM RITAT Apryl Willson RN documented as of this encounter Mental Status * Patient's Judgment Adequate to Safely Complete Daily Activities Answer Entry Date Author Yes 07/19/2024 7:38 PM Apryl Lguo RN documented in this encounter Miscellaneous Notes * Telephone Encounter - Kishan Bailey MBBS - 11/25/2024 2:07 PM CST PFC- Hand-Off Note Referring Provider: Dr. Simran MD Referring Location: [facility] Date of call: 11/25/2024 Time of call: 2:07 PM HPI: 39 year old female with h/o alcohol abuse, s/p lumpectomy of breast, DM I on insulin pump, anxiety,GERD presented to the OSH with c/o nausea, vomiting, dizziness, dry mouth, her pump dislodged last night. C/o cold symptoms for the past one week. HR 110-115, SBP 120s, afebrile CXR pending Labs: Wbc 20 K, hgb 10.6, Plt 382 K K 4.8, bicarb 8, Cr 1.1 VB. UA negative Specialty Consultation: Interventions at Outside Hospital: Insulin drip IV fluid Reason for transfer: Higher level of care for: DKA DM Might this patient be appropriate for: EHD Observation unit? no Bed Requested: medical bed with tele Plan: Acceptance for admission is pending bed availability at this time. KELSIE Molina OR RESEARCH ANALYST documented in this encounter Plan of Treatment Upcoming Encounters Date Type Department Care Team (Late st Contact Info) Description 01/07/2025 2:30 PM SENIOR RESEARCH ANALYST Appointment [facility] ENDOCRINOLOGY [address] [place] [address] [phone] Rosmery Albright APRN, CHAN [address] [phone] documented as of this encounter Visit Diagnoses Not on filedocumented in this encounter Care Teams Gis Analyst Developer Relationship Specialty Start Date End Date Rosmery Albright APRN, CNP [address] [phone] Endocrinology 11/14/21 Oleg Morris MD [address] [address] Gastroenterology 01/22/23 documented as of this encounter
[2024-12-06 19:26] LABS: Ur HCG Qualitative* Negative (Negative)
--- NOTE | 2024-12-06 19:30 | ED.NURSE ---
Pt is calm and cooperative at this time.
[2024-12-06 19:34] LABS: Basophils Absolute Auto 0.05 K/uL (0.00-0.30); Basophils Percent Auto 0.6 % (0.0-3.0); Eosinophils Absolute Auto 0.14 K/uL (0.00-0.50); Eosinophils Percent Auto 1.8 % (0.0-7.0); Hematocrit 31.7 % (33.0-51.0); Hemoglobin* 10.3 gm/dL (12.0-16.0); Immature Granulocytes Abs Auto 0.01 K/uL (0.00-0.30); Immature Granulocytes Pct Auto 0.1 %; Lymphocytes Absolute Auto 2.77 K/uL (0.90-2.90); Lymphocytes Percent Auto 35.7 % (20-44); Mean Corpuscular HGB Conc 33 gm/dL (32-36); Mean Corpuscular Hemoglobin 26 pg (26-34); Mean Corpuscular Volume 81 fL (80-100); Monocytes Percent Auto 7.3 % (0.0-11.0); Neutrophils Absolute Auto 4.22 K/uL (1.7-7.0); Neutrophils Percent Auto 54.5 % (42.0-72.0); Platelet Count* 419 K/uL (140-440); RDW Coefficient of Variation % 15.5 % (11.5-15.5); Red Blood Count 3.94 m/uL (4.00-5.20); White Blood Count* 7.76 K/uL (4.50-11.00)
[2024-12-06 19:35] LABS: HCO3 VBG 27 mmol/L (21-28); PCO2 VBG 39 mmHG (40-50); PO2 VBG 44.4 mmHG (25-47)
[2024-12-06 19:36] LABS: Amphetamine Screen Urine Negative (Negative); Barbiturate Screen Urine Negative (Negative); Benzodiazepines Screen Urine Negative (Negative); Cannabinoid Screen Urine POSITIVE (Negative); Cocaine Screen Urine Negative (Negative); Methadone Screen Urine Negative (Negative); Methamphetamines Screen Urine Negative (Negative); Opiate Screen Urine Negative (Negative); Oxycodone Screen Urine Negative (Negative); Phencyclidine Screen Urine Negative (Negative); Slide Review Reflex No; Tricyclic Antidepressant Urine Negative (Negative)
[2024-12-06 19:50] LABS: Albumin* 3.8 g/dL (3.3-5.0); Chloride* 104 mmol/L (96-114); Potassium* 3.7 mmol/L (3.6-5.1); Sodium* 138 mmol/L (135-149)
[2024-12-06 19:52] LABS: Anion Gap 8 mEq/L (7-15); Bilirubin Total* 0.2 mg/dL (0.1-1.5); Carbon Dioxide* 26 mmol/L (20-32); Creatinine* 0.7 mg/dL (0.5-1.5); Est. Creatinine Clearance* 98.05; Estimated Glomerular Filt Rate 113 ml/min
[2024-12-06 19:53] LABS: Acetaminophen* < 10.0 ug/mL (10.0-30.0); Alanine Aminotransferase* 19 U/L (4-35); Alkaline Phosphatase* 72 U/L (40-150); Aspartate Amino Transferase* 32 U/L (12-35); Blood Urea Nitrogen* 8 mg/dL (5-24); Glucose* 89 mg/dL (60-115); Salicylate* < 1.0 mg/dL (1.0-10); Total Protein* 6.3 g/dL (6.0-8.3)
[2024-12-06 19:57] LABS: Ethanol* < 0.01 % (0.01-0.03)
== END 2024-12-06 21:48 | disposition home or self-care (01) ==
PROVIDERS: Emergency Provider Emergency Medicine
DX: F10.90 Alcohol use, unspecified, uncomplicated (principal); F41.9 Anxiety disorder, unspecified; E11.9 Type 2 diabetes mellitus without complications; Z79.4 Long term (current) use of insulin
CPT/HCPCS: 36415; 80053; 80143; 80179; 80306; 81025; 82077; 82803; 85025; 99284; Q3014